=== PATIENT | female | born 1945 | race Caucasian/White ===

== ENCOUNTER 2017-10-19 01:38 | Inpatient (IN) | payer OTHER, MEDICARE ==
[~2017-10-19] VITALS: Ht 167.6 cm; Wt 129.3 kg
[~2017-10-19 01:38] MED LIST: ASPIRIN EC81 M1 PO; ATORVASTATIN CA80 M1 PO; CLONAZEPAM0.5 M2 PO; DULOXETINE HCL30 MG PO; FLUTICASONE PRO16 GM NASB; GABAPENTIN300 M2 PO; HUMALOG100 UNIT/2 SC; LANTUS100 UNIT/1 SC; LEVOTHYROXINE200 MC1 PO; LEVOTHYROXINE25 MCG PO; LIDOCAINE1 EACH TOP; LISINOPRIL10 M1 PO; LORATADINE10 M1 PO; METOPROLOL TAR100 M1 PO; MIRALAX17 G1 PO; OXYCODONE-ACET1 EAC1 PO; PRADAXA150 M2 PO; RANITIDINE HCL150 MG PO; SENNA8.6 M3 PO
--- NOTE | 2017-10-19 01:54 | ED GENERAL ADULT ---
History of Present Illness General Chief Complaint: Altered Mental Status Stated Complaint: BIBA FOR EVAL AMS Source: old records, EMS, W10 Exam Limitations: clinical condition Vital Signs & Intake/Output Vital Signs & Intake/Output Vital Signs Date Time Temp Pulse Resp B/P B/P Pulse O2 O2 Flow FiO2 Mean Ox Delivery Rate 10/19 0225 130 96 10/19 0145 97.9 100 16 114/59 97 Nasal 2.0L Cannula Allergies Coded Allergies: Iodine and Iodide Containing Produc (UNKNOWN 10/13/17) cephalexin (From KEFLEX) (UNKNOWN 10/13/17) ciprofloxacin (From CIPRO) (UNKNOWN 10/13/17) clindamycin (UNKNOWN 10/13/17) diphenhydramine (From BENADRYL) (UNKNOWN 10/13/17) lorazepam (From ATIVAN) (UNKNOWN 10/13/17) minocycline (From MINOCIN) (UNKNOWN 10/13/17) monosodium glutamate (UNKNOWN 10/13/17) morphine (UNKOWN 10/13/17) nitrofurantoin (From MACROBID) (UNKNOWN 10/13/17) nitroglycerin (UNKNOWN 10/13/17) prochlorperazine (From COMPAZINE) (UNKNOWN 10/13/17) sulfamethoxazole (From BACTRIM) (UNKNOWN 10/13/17) trimethoprim (From BACTRIM) (UNKNOWN 10/13/17) vancomycin (UNKNOWN 10/13/17) Reconcile Medications Aspirin (Ecotrin*) 81 MG TABLET.DR 1 TAB PO DAILY HEART HEALTH (Reported) Atorvastatin Calcium 80 MG TABLET 1 TAB PO DAILY CHOLESTEROL (Reported) Clonazepam 0.5 MG TABLET 1 TAB PO BIDP PRN ANXIETY (Reported) Dabigatran Etexilate Mesylat (Pradaxa) 150 MG CAPSULE 1 CAP PO BID BLOOD THINNER (Reported) Duloxetine HCl 30 MG CAPSULE.DR 1 CAP PO DAILY UNKNOWN (Reported) Fluticasone Propionate 50 MCG/ACTUATION SPRAY.SUSP 1 SPRAY NASB DAILY ALLERGIES (Reported) Gabapentin 300 MG CAPSULE 1 CAP PO BID UNKNOWN (Reported) Insulin Lispro (Humalog) 100 UNIT/ML VIAL 14 UNITS SC TIDAC DIABETES ( Reported) Insulin-Lantus (Lantus) 100 UNIT/ML VIAL 40 UNITS SC BID DIABETES (Reported) Levothyroxine Sodium 25 MCG TABLET 1 TAB PO DAILY AC THYROID (Reported) Levothyroxine Sodium 200 MCG TABLET 1 TAB PO DAILY AC THYROID (Reported) Lidocaine 5 % ADH..PATCH 1 PAT TOP DAILY PAIN (Reported) Lisinopril 10 MG TABLET 1 TAB PO DAILY HEART (Reported) Loratadine 10 MG TABLET 1 TAB PO DAILY ALLERGIES (Reported) Metoprolol Tartrate 100 MG TABLET 1 TAB PO BID HEART (Reported) Oxycodone HCl/Acetaminophen (Oxycodone-Acetaminophen 10-325) 10 MG-325 MG TABLET 1 TAB PO Q8P PRN PAIN (Reported) Polyethylene Glycol 3350 (Miralax) 17 GRAM POWD.PACK 1 PAC PO DAILY CONSTIPATION (Reported) dissolve in water Ranitidine (Ranitidine HCl) 150 MG TABLET 1 TAB PO BID GI (Reported) Sennosides (Senna) 8.6 MG TABLET 1 TAB PO 1700 CONSTIPATION (Reported) Triage Nurses Notes Reviewed? yes HPI: Patient was sent in for evaluation of altered mental status and dyspnea. Patient is from [facility] care [facility]. Around this evening patient was found altered. Patient will grunt in response to pain but that is the only response. Upon EMS arrival patient was found to be wearing a nonrebreather at 2 L/m. The oxygen was increased. Patient was seen in the emergency department a few days ago for suicidal ideations after 30 pound weight gain. Patient was subsequently discharged back to the nursing facility. Patient received 125 mg of IV Solu- Medrol as well as a DuoNeb by EMS en route to the emergency department. Past History Travel History Traveled to [place] past 21 day No Medical History Any Pertinent Medical History? see below for history Cardiovascular: AFIB, hypertension, hyperlipidemia, PVD Respiratory: COPD Gastrointestinal: GERD Musculoskeletal: chronic back pain Psychiatric: anxiety Endocrine: diabetes (type 2) Blood Disorders: NONE Cancer(s): NONE BUSINESS AGENT/Reproductive: NONE Surgical History Surgical History: non-contributory Psychosocial History Who do you live with Other (see notes) What is your primary language Arabic Tobacco Use: Cognitive Impairment Family History Hx Contributory? No Review of Systems Review of Systems Constitutional: Reports: see HPI. Physical Exam Physical Exam General Appearance: lethargic, severe distress Head: atraumatic Eyes: Bilateral: PERRL, EOMI. Ears, Nose, Throat: normal pharynx, normal ENT inspection Neck: normal inspection, supple, JVD Respiratory: decreased breath sounds, crackles, rales, respiratory distress Cardiovascular: regular rate/rhythm, normal peripheral pulses Gastrointestinal: normal bowel sounds, soft, non-tender Back: normal inspection, normal range of motion Extremities: pedal edema Neurologic/Psych: GRUNTS TO PAINFULL STIMULAE Skin: intact, normal color, warm/dry Lymphatic: no anterior cervical felecia Core Measures ACS in differential dx? Yes CVA/TIA Diagnosis: No Sepsis Present: No Sepsis Focused Exam Completed? No Progress Differential Diagnoses I considered the following diagnoses in my evaluation of the patient: [HYPOXIC RESP FAILURE, HYPERCAPNIC RESP FAILURE, PNEUMONIA, PULM EDEMA, AMI, ELECTROLYTE ABNORMALITY, UTI] Plan of Care: Orders Procedure Date/time Status LACTIC ACID 10/19 453 Active BIPAP 10/19 215 Complete ARTERIAL BLOOD GAS (GEN) 10/19 153 Complete Telemetry/Cloth Folder Machine 10/19 153 Active Straight Cath 10/19 153 Active CULTURE,URINE 10/19 153 Active BLOOD CULTURE 10/19 153 Active URINALYSIS 10/19 153 Active TROPONIN LEVEL 10/19 153 Complete LACTIC ACID 10/19 153 Complete COMPREHENSIVE METABOLIC PANEL 10/19 153 Complete CBC WITHOUT DIFFERENTIAL 10/19 153 Complete B-TYPE NATRIURETIC PEP (BNP) 10/19 153 Complete EKG 10/19 153 Active Current Medications Sig/Samantha Start time Last Medication Dose Stop Time Status Admin Furosemide 40 MG ONCE ONE 10/19 315 UNVr (Lasix) 10/19 316 Laboratory Tests 10/19/17 0230: Urine Color Pending, Urine Clarity Pending, Urine pH Pending, Ur Specific Rule Pending, Urine Protein Pending, Urine Ketones Pending, Urine Nitrite Pending, Urine Bilirubin Pending, Urine Urobilinogen Pending, Ur Leukocyte Esterase Pending, Ur Microscopic Pending, Urine Hemoglobin Pending, Urine Glucose Pending 10/19/17 0200: Anion Gap 8, Estimated GFR > 60, BUN/Creatinine Ratio 37.8 H, Glucose 127 H, Lactic Acid 1.4, Calcium 9.5, Total Bilirubin 0.4, AST 39 H, ALT 30, Alkaline Phosphatase 220 H, Gtb-[id number]-Tnyqxxxespq Pept 6450 H, Total Protein 6.4, Albumin 3.0 L, Globulin 3.4, Albumin/Globulin Ratio 0.9 L, CBC w Diff NO MAN DIFF REQ, RBC 3.96 L, MCV 87.9, MCH 28.5, RDW 15.9 H, MPV 8.1, Gran % 62.3, Lymphocytes % 21.0, Monocytes % 14.4 H, Eosinophils % 1.7, Basophils % 0.6, Absolute Granulocytes 5.7, Absolute Lymphocytes 1.9, Absolute Monocytes 1.3 H, Absolute Eosinophils 0.2, Absolute Basophils 0.1, PUBS MCHC 32.4 L 10/19/17 0150: pH 7.28 *L, pCO2 69 *H, pO2 68 L, HCO3 32 H, ABG O2 Sat (Measured) 88.0 L, Carboxyhemoglobin 2.3, O2 Concentration % 2L, O2 Delivery Method NC, Phlebotomy Draw Site RIGHT RADIAL Microbiology 10/19 300 BLOOD: Blood Culture - RECD 10/19 230 URINE ROUT: Urine Culture - RECD 10/19 153 BLOOD: Blood Culture - ORD Diagnostic Imaging: Viewed by Me: Radiology Read. Discussed w/RAD: Radiology Read. CXR Impression: PATIENT: MARCELINA VASQUEZ PRESENT AGE: 72 PATIENT ACCOUNT NO: [id number] : 45 LOCATION: [facility] ORDERING PHYSICIAN: Freddy Golden MD SERVICE DATE: 10/19/17 EXAM TYPE: RAD - XRY- PORTABLE CHEST XRAY XR PORTABLE CHEST CLINICAL INFORMATION: Fluid overload. COMPARISON: None available. TECHNIQUE: Portable frontal view of the chest was obtained. FINDINGS: Right IJ Port-A-Cath tip projects over the right atrium. Low lung volumes and nonspecific retrocardiac opacity. Markedly enlarged cardiac silhouette. Central vascular congestion without overt edema. Lungs are otherwise clear. There is no pneumothorax. No acute osseous findings IMPRESSION: - Right IJ Port-A-Cath tip projects over the right atrium. - Low lung volumes and nonspecific retrocardiac opacity. Central vascular congestion without overt edema. - Enlarged cardiac silhouette. DICTATED BY: Jose Braga MD DATE/TIME DICTATED:10/19/17301 CLAIMS ADJUSTER:DOUG DATE/TIME TRANSCRIBED:301 CONFIDENTIAL, DO NOT COPY WITHOUT APPROPRIATE AUTHORIZATION. < Electronically signed in Other Vendor System> SIGNED BY: Jose Braga MD 10/19/17307 Initial ED EKG: AFIB, nonspecific ST T wave chg Prior EKG: unchanged Rhythm Strip: atrial fibrillation Departure Departure Disposition: STILL A PATIENT Condition: Guarded Clinical Impression Primary Impression: Hypercapnic respiratory failure Secondary Impressions: Fluid overload Referrals: Unknown (PCP/Family) Departure Forms: Customer Survey General Discharge Information Admission Note Spoke With: Eloise Salomon MD Documentation of Exam: Documentation of any treatments & extenuating circumstances including Concerns Regarding Discharge (functional status, medication knowledge or non-compliance, living conditions, etc.) that warrant an admission rather than observation: [ICU ADMISSION, BIPAP, IV DIURESIS, CARDIOLOGY CONSULT, ECHO, PULM CONSULT, ] Critical Care Note Critical Care Note Critical Care Time: mins: (120 MIN)
[2017-10-19 02:15] LABS: ABSOLUTE BASOPHIL COUNT 0.1 /CUMM (0.0-0.2); ABSOLUTE EOSINOPHIL COUNT 0.2 /CUMM (0.0-0.7); ABSOLUTE GRANULOCYTE CT 5.7 /CUMM (1.4-6.5); ABSOLUTE LYMPH COUNT 1.9 /CUMM (1.2-3.4); ABSOLUTE MONOCYTE COUNT 1.3 /CUMM (0.10-0.60); BASOPHIL % 0.6 % (0.0-2.0); EOSINOPHIL % 1.7 % (0-5); GRANULOCYTE % 62.3 % (42.2-75.2); HEMATOCRIT 34.8 % (37-47); MEAN CORPUSCULAR HGB 28.5 PG (27.0-31.0); MEAN CORPUSCULAR HGB CONC 32.4 G/DL (33.0-37.0); MEAN CORPUSCULAR VOLUME 87.9 FL (81.0-99.0); MEAN PLATELET VOLUME 8.1 FL (7.4-10.4); PLATELET COUNT 294 /CUMM (130-400); RBC DISTRIBUTION WIDTH 15.9 % (11.5-14.5); RED BLOOD CELL CT 3.96 /CUMM (4.20-5.40); WHITE BLOOD CELL COUNT 9.2 /CUMM (4.8-10.8)
--- NOTE | 2017-10-19 03:08 | RADIOLOGY REPORT ---
XR PORTABLE CHEST CLINICAL INFORMATION: Fluid overload. COMPARISON: None available. TECHNIQUE: Portable frontal view of the chest was obtained. FINDINGS: Right IJ Port-A-Cath tip projects over the right atrium. Low lung volumes and nonspecific retrocardiac opacity. Markedly enlarged cardiac silhouette. Central vascular congestion without overt edema. Lungs are otherwise clear. There is no pneumothorax. No acute osseous findings IMPRESSION: - Right IJ Port-A-Cath tip projects over the right atrium. - Low lung volumes and nonspecific retrocardiac opacity. Central vascular congestion without overt edema. - Enlarged cardiac silhouette.
--- NOTE | 2017-10-19 03:26 | History & Physical ---
Kasia Contreras MD,[facility] 10/19/17 0326: General Information and HPI MD Statement: I have seen and personally examined MARCELINA VASQUEZ and documented this H&P. The patient is a 72 year old F who presented with a patient stated chief complaint of altered mental status. Source of Information: patient, old records History of Present Illness: Patient is 72-year-old female with PMH of A. fib, hypertension, hyperlipidemia, DM, PVD, COPD, chronic back pain, anxiety presented to the ED from extended care facility for evaluation of altered mental status. At the time of interview patient was confused and was not able to communicate, yet very visited after few hours there was significant improvement in her mental condition. Dickzana Amarilys was also contacted to complete history. Patient has a brother that can be contacted for medical decisions if she is not capacitated in future. Patient was [facility] from [facility] and was on 2 L oxygen supplement. For the last couple of days patient started to have increased cough and sputum, a chest x-ray was done as [facility] which was negative for pneumonia. Yesterday patient found to be unresponsive with low saturation and was sent to [place] ED. Of note the patient was admitted to emergency department a few days ago for suicidal ideation after being upset for what she noted to be 30 pounds weight gain. Patient was given IV Solu-Medrol and nebs prior to transmission. Allergies/Medications Home Med list Aspirin (Ecotrin*) 81 MG TABLET.DR 1 TAB PO DAILY HEART HEALTH (Reported) Atorvastatin Calcium 80 MG TABLET 1 TAB PO DAILY CHOLESTEROL (Reported) Clonazepam 0.5 MG TABLET 1 TAB PO BIDP PRN ANXIETY (Reported) Dabigatran Etexilate Mesylat (Pradaxa) 150 MG CAPSULE 1 CAP PO BID BLOOD THINNER (Reported) Duloxetine HCl 30 MG CAPSULE.DR 1 CAP PO DAILY UNKNOWN (Reported) Fluticasone Propionate 50 MCG/ACTUATION SPRAY.SUSP 1 SPRAY NASB DAILY ALLERGIES (Reported) Gabapentin 300 MG CAPSULE 1 CAP PO BID UNKNOWN (Reported) Hyoscyamine (Levsin) 0.125 MG TABLET 1 TAB PO Q4P PRN abdominal pain ( Reported) Insulin Lispro (Humalog) 100 UNIT/ML VIAL 14 UNITS SC TIDAC DIABETES ( Reported) Insulin-Lantus (Lantus) 100 UNIT/ML VIAL 40 UNITS SC BID DIABETES (Reported) Levothyroxine Sodium 25 MCG TABLET 1 TAB PO DAILY AC THYROID (Reported) Lidocaine 5 % ADH..PATCH 1 PAT TOP DAILY PAIN (Reported) Lisinopril 10 MG TABLET 1 TAB PO DAILY HEART (Reported) Loratadine 10 MG TABLET 1 TAB PO DAILY ALLERGIES (Reported) Metoprolol Tartrate 100 MG TABLET 1 TAB PO BID HEART (Reported) Ondansetron HCl (Zofran) 4 MG TABLET 1 TAB PO Q8 PRN nausea (Reported) Oxycodone HCl/Acetaminophen (Oxycodone-Acetaminophen 10-325) 10 MG-325 MG TABLET 1 TAB PO Q8P PRN PAIN (Reported) Oxycodone HCl/Acetaminophen (Percocet 10-325 MG Tablet) 10 MG-325 MG TABLET 1 TAB PO Q8P PRN Chronic Pain (Reported) Phenazopyridine HCl (Pyridium) 200 MG TABLET 1 TAB PO TID PRN bladder spasm ( Reported) after meals if needed Polyethylene Glycol 3350 (Miralax) 17 GRAM POWD.PACK 1 PAC PO DAILY CONSTIPATION (Reported) dissolve in water Ranitidine (Ranitidine HCl) 150 MG TABLET 1 TAB PO BID GI (Reported) Sennosides (Senna) 8.6 MG TABLET 1 TAB PO 1700 CONSTIPATION (Reported) Past History Travel History Traveled to [place] past 21 day No Medical History Cardiovascular: AFIB, hypertension, hyperlipidemia, PVD Respiratory: COPD Gastrointestinal: GERD Musculoskeletal: chronic back pain Psychiatric: anxiety Endocrine: diabetes (type 2) Blood Disorders: NONE Cancer(s): NONE AQUATIC PERFORMER/Reproductive: NONE Surgical History Surgical History: non-contributory Review of Systems Review of Systems Constitutional: Reports: see HPI. Comments Patient was confused at the time of interview and complete review of system was not possible. Exam & Diagnostic Data Last 24 Hrs of Vital Signs/I&O Vital Signs Date Time Temp Pulse Resp B/P B/P Pulse O2 O2 Flow FiO2 Mean Ox Delivery Rate 10/19 0643 106 20 107/80 98 BIPAP 35% 10/19 0551 97.6 99 20 110/71 98 BIPAP 35% 10/19 0516 97.5 120 20 110/70 98 BIPAP 35% 10/19 0515 128 98 10/19 0438 97.9 111 22 104/68 98 BIPAP 10/19 0416 98 BIPAP 10/19 0354 97.0 118 21 109/71 98 BIPAP 10/19 0225 130 96 10/19 0145 97.9 100 16 114/59 97 Nasal 2.0L Cannula Intake & Output 10/19 1600 10/19 0800 10/19 0000 Intake Total Output Total 50 Balance -50 Output, Urine 50 Physical Exam General Appearance Not oriented initially at the time of examination, Obese, on BIPAP, awake but not oriented Skin vascular congestions lesions on the bilateral LE Skin Temp/Moisture Exam: Warm/Dry Sepsis Skin Exam (color): Normal for Ethnicity HEENT Atraumatic, EOMI Cardiovascular Normal S1, Normal S2, distant sounds Lungs decreased breathign sounds, due to body habitus, on BIPAP Abdomen Soft, No Tenderness, scar of surgery in RUQ Neurological complete evluatino not possible due to patient mental condition Extremities bilateral LE skin lesion in soft splint Last 24 Hrs of Labs/Ludwig: Laboratory Tests 10/19/17 0515: pH 7.33 L, pCO2 59 H, pO2 97, HCO3 30 H, ABG O2 Sat (Measured) 95.0 L, Carboxyhemoglobin 1.4 L, O2 Concentration % .35, Respiration Rate 20, O2 Delivery Method BIPAP, Vent Mode ST, Expiratory Pressure 6, Inspiratory Pressure 14, Phlebotomy Draw Site RIGHT RADIAL 10/19/17 0505: Lactic Acid 1.1 10/19/17 0505: Anion Gap 9, Estimated GFR > 60, BUN/Creatinine Ratio 40.0 H 10/19/17 0230: Urine Opiates Screen 1284.00, Methadone Screen 116, Barbiturate Screen < 60, Ur Phencyclidine Scrn 12.80, Amphetamines Screen < 100, U Benzodiazepines Scrn < 85 , Urine Cocaine Screen < 50, Urine Cannabis Screen < 5.00, Urinalysis HEAVY H, Urine Color YEL, Urine Clarity HAZY H, Urine pH 5.5, Ur Specific [place] >= 1.030, Urine Protein 30 H, Urine Ketones TRACE H, Urine Nitrite NEG, Urine Bilirubin NEG@ICTO, Urine Urobilinogen 0.2, Ur Leukocyte Esterase NEG, Ur Microscopic SEDIMENT EXAMINED, Urine RBC 3-5, Urine WBC 3-5 H, Ur Epithelial Cells MOD H, Hyaline Casts 5-10 H, Urine Mucus FEW, Urine Hemoglobin NEG, Urine Glucose NEG 10/19/17 0200: Anion Gap 8, Estimated GFR > 60, BUN/Creatinine Ratio 37.8 H, Glucose 127 H, Lactic Acid 1.4, Calcium 9.5, Total Bilirubin 0.4, AST 39 H, ALT 30, Alkaline Phosphatase 220 H, Troponin I 0.18 *H, Cbn-Z-Mkiioquqidx Pept 6450 H, Total Protein 6.4, Albumin 3.0 L, Globulin 3.4, Albumin/Globulin Ratio 0.9 L, CBC w Diff NO MAN DIFF REQ, RBC 3.96 L, MCV 87.9, MCH 28.5, RDW 15.9 H, MPV 8.1, Gran % 62.3, Lymphocytes % 21.0, Monocytes % 14.4 H, Eosinophils % 1.7, Basophils % 0.6, Absolute Granulocytes 5.7, Absolute Lymphocytes 1.9, Absolute Monocytes 1.3 H, Absolute Eosinophils 0.2, Absolute Basophils 0.1, PUBS MCHC 32.4 L 10/19/17 0150: pH 7.28 *L, pCO2 69 *H, pO2 68 L, HCO3 32 H, ABG O2 Sat (Measured) 88.0 L, Carboxyhemoglobin 2.3, O2 Concentration % 2L, O2 Delivery Method NC, Phlebotomy Draw Site RIGHT RADIAL Microbiology 10/19 07 UPPER RESP: Surveillance Culture - RECD 10/19 0700 GI: Surveillance Culture - RECD 10/19 0432 URINE ROUT: Legionella Antigen - COLB 10/19 0432 URINE ROUT: Streptococcus pneumoniae Antigen (M - COLB 10/19 0404 URINE ROUT: Urine Culture - COLB 10/19 0300 BLOOD: Blood Culture - RECD 10/19 0255 BLOOD: Blood Culture - RECD 10/19 0230 URINE ROUT: Urine Culture - RECD Assessment/Plan Assessment: 72-year-old female with PMH of A. fib, hypertension, hyperlipidemia, DM, PVD, COPD, chronic back pain, anxiety presented to the ED from extended care facility for evaluation of altered mental status. VS: No fever, MI 100, BP 11 4/50, MI 100, RR 16 Labs at admission: Hgb 11.3, WBC 9.2, potassium 5.5, bicarbonate 35, AST 39, ALK P2 20, and TN 0.18, proBNP 6450, ABG, pH 7.28, PCO2 69, bicarbonate 32, Imagings at admission: CXR: - Right IJ Port-A-Cath tip projects over the right atrium. - Low lung volumes and nonspecific retrocardiac opacity. Central vascular congestion without overt edema. - Enlarged cardiac silhouette. Patient was admitted to ICU for management of following conditions: 1. Acute hypoxic hypercarbic respiratory failure Contributing factors are obesity hypoventilation, opiates related to respiratory failure, CHF -Admit to ICU -Continue BiPAP -ABG -TRC nebs -Cautious use of opioids 2. Elevated troponins, type II OK Most likely demand ischemia in setting of CHF and respiratory failure -Serial troponin I ECGs -Cardiology consult -Echocardiogram -Obtained records from [facility] 3. CHF Symptoms suggesting are recent weight gain of 30 pounds and cough and chest x- ray -IV Lasix -Management as noted above 4. Chronic medical conditions We will continue all home medication except lisinopril considering administration of Lasix and blood pressure -Continue home medication -Hold lisinopril DNR/DNI Heart healthy diet DVT PPx: Mechanical and heparin As Ranked By This Provider Problem List: 1. Hypercapnic respiratory failure 2. Myocardial infarction type 2 Core Measures/Misc (07/10) Acute Coronary Syndrome ACS Diagnosis: Yes Congestive Heart Failure Congestive Heart Failure Diagnosis Yes Cerebrovascular Accident CVA/TIA Diagnosis: No VTE (View Protocol) VTE Risk Factors Age>40 No Mechanical VTE Prophylaxis d/t N/A MechProphylax Ordered No VTE Pharm Prophylaxis d/t NA PharmProphylax ordered Sepsis (View protocol) Sepsis Present: No Marleni Ravi MD 10/19/17 3520: General Information and HPI Allergies/Medications Allergies: Coded Allergies: Iodine and Iodide Containing Produc (UNKNOWN 10/13/17) cephalexin (From KEFLEX) (UNKNOWN 10/13/17) ciprofloxacin (From CIPRO) (UNKNOWN 10/13/17) clindamycin (UNKNOWN 10/13/17) diphenhydramine (From BENADRYL) (UNKNOWN 10/13/17) lorazepam (From ATIVAN) (UNKNOWN 10/13/17) minocycline (From MINOCIN) (UNKNOWN 10/13/17) monosodium glutamate (UNKNOWN 10/13/17) morphine (UNKOWN 10/13/17) nitrofurantoin (From MACROBID) (UNKNOWN 10/13/17) nitroglycerin (UNKNOWN 10/13/17) prochlorperazine (From COMPAZINE) (UNKNOWN 10/13/17) sulfamethoxazole (From BACTRIM) (UNKNOWN 10/13/17) trimethoprim (From BACTRIM) (UNKNOWN 10/13/17) vancomycin (UNKNOWN 10/13/17) Uncoded Allergies: MUSHROOMS (UNKNOWN 10/19/17) LACTOSE INTOLERANT (UNKNOWN 10/19/17) Resident Review Statement Resident Statement: examined this patient, discussed with buying intern, agreed with buying intern, discussed with family, reviewed EMR data (avail) Other Findings: Patient is a 72 YO F with PMH significant for A.fib on pradaxa, HTN, HLD, PVD, GERD, IDDM Hypothyroidism, MRSA skin infection, anxiety BIBA to [place] from [facility] after developing acute dyspnea. She was discharged to [facility] on 10/10/17 from [facility] on 2L oxygen. Patient remains wheelchair bound, hoir lift. She started to expreience wet cough with congestion for the past few days, yesterday underwent a chest Xray which was negative for pneumonia. Today while they are making rounds she was found unresponsive with BS of 176 on field and sent to [place] ER. Allergic to iodine and iodinated contrast Vitals at admission Temp 97, MI 100, BP 114/59mmHg, 79 on 2L of nonrebreather mask. PE Alert and oriented after 3hrs of ABG at the time of interview. Heart: s1 & S2 heard but distant Lungs: clear on apical regions, diminshed/bearly heard at bases (no wheezing) Abdomen: soft and nontender Lower extremities: chronic skin changes present without any dependent edema evident, she is on multipodust boots. Labs white count of 9.2, H&H of 11/34, Platelet count 294, Electrolytes - chloride 95 , bicarbonate 35, BUN/Cr ration of 37 with Cr 0.9, Lactic acid 1.4, AST/ALT - 39/30, ALP 220, ProBNP 6450. ABG - pH 7.28, PaCo2 69, PaO2 68, HCo3 32. CXR - port A cath in place, low lung volumes, central vascular congestion EKG - A.Fib with HR 100, T wave inversions in I, aVL, diffuse low voltage and poor R wave progression Assessment Patient is a morbidly obese 72 YO nonsmoker diabetic female presented with acute alteration mental status due to respiratory distress. She was having cough with congestion for the past few days at [facility]. VS did show HR 100, desturating to 79 on mask. labs did show trop of 0.18, Electrolytes - chloride 95, bicarbonate 35, BUN/Cr ration of 37 with Cr 0.9, Lactic acid 1.4, AST/ALT - 39/30, ALP 220, ProBNP 6450. ABG - respiratory acidosis with carbondioxide retention. pH 7.26. EKG is consistent with A.fib HR 100. Differentials Acute hypoxic hypercarbic respiratory failure -- Obesity vs opiates --> chest wall related. Type II OK -- secondary to hypoxia and hypotension Congestive heart failure -- recent weight gain, wet cough worsening of OHS Plan Admit to critical care unit Acute hypoxic hypercarbic respiratory failure Probably secondary to obesity vs chest wall expansion problem vs opiates. * Started on BiPAP in the ER * repeat ABG did show significant improvement and transitioned to nasal cannula * Obtain records from [facility] TypeII OK Troponin 0.18 in the setting of hypoxia and hypotension. EKG did show T-wave inversions in 1 and aVL previously. Patient might have CAD in the past. * Serial EKGs and Trops * Continue aspirin, atorvastatin 80 mg, lisinopril 10 mg, metoprolol 100 mg twice a day History of A. fib on Pradaxa Continue to be determined 50 mg twice a day, metoprolol 100 mg twice a day. Insulin-dependent diabetes mellitus Accu-Cheks, continue insulin sliding scale and long-acting insulin ?? Congestive heart failure She had a proBNP of 6450 with chest x-ray features consistent with central vascular congestion. And Patient received 1 dose of IV Lasix in the ER. * Cardiology consult * Serial troponins and EKGs as this could contribute to condition and failure * Echo as per cardiology recommendations * Holding diuresis pending above Hypertension Continue lisinopril 10 mg daily Hypothyroidism Continue levothyroxine 25 g daily Depression/anxiety Continue duloxetine 30 mg daily, clonazepam 0.5 mg twice a day DVT prophylaxis On Pradaxa CODE STATUS DNR/DNI Please obtain history from the patient and she is more awake alert and able to talk. Eloise Salomon 10/19/17 0713: Attending MD Review Statement Attending Statement Attending MD Statement: examined this patient, discuss w/resident/PA/BLACKSMITH APPRENTICE, agreed w/resident/PA/BLACKSMITH APPRENTICE, reviewed EMR data (avail), reviewed images, amended to note Attending Assessment/Plan: CC: Respiratory distress, altered PMH: A. fib, hypothyroidism, DM on insulin, oxygen dependence for unclear etiology, low back pain, anxiety, HTN, HLD Patient is currently on BiPAP and difficult to get history. According to patient she was getting worsening of cough since last 3 days without any sputum production, denies any chest pain chest tightness or palpitations. According to alf, she was investigated with chest x-ray and follows found to have possible left lower lobe infiltrate but patient did not have any fever or leukocytosis of the did not treat her with antibiotics instead she was appearing congested so they gave her IV Lasix, today patient was found to be more altered and in more respiratory distress so she was sent to ER. Vitals: Afebrile, pulse in 110s, RR 22, blood pressure 114/59, saturating 96% on BiPAP On exam: Arousable, can be reoriented, cooperative, respiratory distress, neck supple, JVD difficult to assess, morbidly obese, mucosa dry , no focal neurological deficit except bilateral lower extremity appear chronically weak, no dependent edema, chronic skin changes secondary to PVD, CVS: S1-S2, irregular. RS: Difficult to ask auscultate, distant breathing sounds but markedly decreased air entry bilaterally basis. Abdomen: Soft, mild right upper quadrant tenderness, ND, bowel sounds present. Labs: CBC, BMP, LFT unremarkable except BUN 34, alkaline phosphatase 220, troponin 0.18, proBNP 6450, UA unremarkable. AB.28/69/68/32 on 2 L nasal cannula, ECG: A. fib Chest x-ray:- Right IJ Port-A-Cath tip projects over the right atrium. - Low lung volumes and nonspecific retrocardiac opacity. Central vascular congestion without overt edema. - Enlarged cardiac silhouette. Assessment and plan 72-year-old female was sent from [facility] for worsening breathing, respiratory distress and altered. In ER patient was very labored breathing, difficult to arouse, hypoxic, tachycardic, patient was started on BiPAP immediately was found to have hypercapnic respiratory failure. Patient is morbidly obese, heart sounds and breath sounds are distant, decreased air entry bilaterally, no obvious wheezing noted. She has bilateral lower extremity skin changes secondary to PAD, no ulcers, no back ulcers, no evidence of UTI. Patient was on pain medications at rehabilitation but does not have pinpoint pupils, did not receive Narcan, after a few hours on BiPAP and IV Lasix patient's mental status improved and unable to talk few stent remains to provide history. It appears that she has heart failure along with obesity hypoventilation causing hypercapnia. Currently on BiPAP, ABG improving but her troponin elevated, no acute ECG changes except A. fib. Critical care and Cardiology consult in a.m. need to up and records from outside facility as patient is a poor historian, continued medications according to [facility] list + Acute on chronic respiratory failure secondary to hypercapnia and hypoxia, probably combination of congestive heart failure along with obesity hypoventilation syndrome, EARNESTINE in setting of opiates + Elevated troponin : Probably demand secondary to heart failure rule out ACS + History of A. fib, hypothyroidism, DM on insulin, oxygen dependence for unclear etiology, low back pain, anxiety, HTN, HLD - Admit to ICU - Continue BiPAP - Repeat ABG in 4 hours from previous ABG currently on BiPAP, if acidosis improved tried to de-escalate to nasal cannula - Serial troponin and ECGs - IV Lasix was given in ER 1 dose - TRC nebs - Cardiology consult in a.m. for suspected heart failure - Critical care consult in a.m. - 2-D echocardiogram - Obtain records from [facility] and [facility] - Continue all her home medications except lisinopril, allow blood pressure to assess stabilize better after Lasix before resuming lisinopril - Careful use of opiates - Patient on Pradaxa for DVT prophylaxis - Patient has port on right side, according to her last accessed in her previous hospitalization approximately few weeks back. There is no information about patient's immediate family, health care proxy, according to charts patient is DNR. Need to confirm CODE STATUS with patient. TTS 40 min
--- NOTE | 2017-10-19 07:15 | Admission Certification ---
Admission Certification Certification Statement - As attending physician, I certify that at the time of - admission, based on clinical presentation, severity of - symptoms, need for further diagnostic testing and - therapeutic interventions, and risk of adverse outcomes - without in-hospital treatment, in my clinical assessment, - this patient requires an acute hospital stay for a minimum - of two nights or longer. I have also considered psychsocial - factors such as support system, advanced age, financial - issues, cognitive issues, and failed out-patient treatments, - past re-admission history, safety of patient, and lack of - compliance as applicable. Specific rationale supporting this admission is: Acute hypercapnic and hypoxic respiratory failure
--- NOTE | 2017-10-19 07:56 | Cons- CRCU ---
Serafin Hager 10/19/17 0755: General Information and HPI Consulting Request Requested By: Dr. Salomon History of Present Illness: Ms. Caceres is a 72 yo f with a PMH of Morbid obesity, A.fib on Pradaxa, hypertension, hyperlipidemia, IDDM, PVD, Chronic R foot ulcers, COPD on 2L home oxygen, chronic back pain, urinary incontinence, anxiety, depression, RA, history of MRSA and VRE BIBA to the ED from [facility] for hypoxia and unresponsiveness. Patient poor historian. As per records and [facility] patient was found to have low O2 sats 78-79%. She was put on a NRB mask and her O2 sat increased to 98%. She was unresponsive at the time and foaming at the mouth. As per patient she reports she was feeling sick lately. She complained of nausea, back and abdominal pain to the nursting staff at [facility]. She does not recall going to the ED. She is inactive, bedbound and uses a wheelchair for ambulation. She denies fever, chills, BAIRES, blurry vision, jerky movements, tongue bite, urinary or bowel symptoms. Patient was discharged to [facility] on 10/10/17 from [facility] and was on 2 L oxygen supplement. For the last couple of days patient started to have increased cough and sputum, a chest x-ray was done at [facility] which was negative for pneumonia. Allergies/Medications Allergies: Coded Allergies: Iodine and Iodide Containing Produc (UNKNOWN 10/13/17) cephalexin (From KEFLEX) (UNKNOWN 10/13/17) ciprofloxacin (From CIPRO) (UNKNOWN 10/13/17) clindamycin (UNKNOWN 10/13/17) diphenhydramine (From BENADRYL) (UNKNOWN 10/13/17) lorazepam (From ATIVAN) (UNKNOWN 10/13/17) minocycline (From MINOCIN) (UNKNOWN 10/13/17) monosodium glutamate (UNKNOWN 10/13/17) morphine (UNKOWN 10/13/17) nitrofurantoin (From MACROBID) (UNKNOWN 10/13/17) nitroglycerin (UNKNOWN 10/13/17) prochlorperazine (From COMPAZINE) (UNKNOWN 10/13/17) sulfamethoxazole (From BACTRIM) (UNKNOWN 10/13/17) trimethoprim (From BACTRIM) (UNKNOWN 10/13/17) vancomycin (UNKNOWN 10/13/17) Uncoded Allergies: MUSHROOMS (UNKNOWN 10/19/17) LACTOSE INTOLERANT (UNKNOWN 10/19/17) Home Med List: Aspirin (Ecotrin*) 81 MG TABLET.DR 1 TAB PO DAILY HEART HEALTH (Reported) Atorvastatin Calcium 80 MG TABLET 1 TAB PO DAILY CHOLESTEROL (Reported) Clonazepam 0.5 MG TABLET 1 TAB PO BIDP PRN ANXIETY (Reported) Dabigatran Etexilate Mesylat (Pradaxa) 150 MG CAPSULE 1 CAP PO BID BLOOD THINNER (Reported) Duloxetine HCl 30 MG CAPSULE.DR 1 CAP PO DAILY UNKNOWN (Reported) Fluticasone Propionate 50 MCG/ACTUATION SPRAY.SUSP 1 SPRAY NASB DAILY ALLERGIES (Reported) Gabapentin 300 MG CAPSULE 1 CAP PO BID UNKNOWN (Reported) Insulin Lispro (Humalog) 100 UNIT/ML VIAL 14 UNITS SC TIDAC DIABETES ( Reported) Insulin-Lantus (Lantus) 100 UNIT/ML VIAL 40 UNITS SC BID DIABETES (Reported) Levothyroxine Sodium 25 MCG TABLET 1 TAB PO DAILY AC THYROID (Reported) Lidocaine 5 % ADH..PATCH 1 PAT TOP DAILY PAIN (Reported) Lisinopril 10 MG TABLET 1 TAB PO DAILY HEART (Reported) Loratadine 10 MG TABLET 1 TAB PO DAILY ALLERGIES (Reported) Metoprolol Tartrate 100 MG TABLET 1 TAB PO BID HEART (Reported) Oxycodone HCl/Acetaminophen (Oxycodone-Acetaminophen 10-325) 10 MG-325 MG TABLET 1 TAB PO Q8P PRN PAIN (Reported) Polyethylene Glycol 3350 (Miralax) 17 GRAM POWD.PACK 1 PAC PO DAILY CONSTIPATION (Reported) dissolve in water Ranitidine (Ranitidine HCl) 150 MG TABLET 1 TAB PO BID GI (Reported) Sennosides (Senna) 8.6 MG TABLET 1 TAB PO 1700 CONSTIPATION (Reported) Current Medications: Current Medications Sig/Samantha Start time Last Medication Dose Route Stop Time Status Admin Aspirin Buffered 81 MG DAILY 10/19 1000 AC PO Atorvastatin Calcium 80 MG 1700 10/19 1700 AC PO Clonazepam 0.5 MG BID PRN 10/19 1000 AC PO 10/26 0959 Dabigatran 150 MG BID 10/19 1000 AC PO Duloxetine HCl 30 MG DAILY 10/19 1000 AC PO Enoxaparin Sodium 40 MG DAILY 10/19 1000 DC 10/19 SC 0405 Enoxaparin Sodium 0 .STK-MED ONE 10/19 0343 DC SC Famotidine 20 MG DAILY 10/19 1000 AC PO Fluticasone 1 SPRAY DAILY 10/19 1000 AC Propionate CHIDI Furosemide 0 .STK-MED ONE 10/19 0343 DC IV Furosemide 40 MG ONCE ONE 10/19 0315 DC 10/19 IV 10/19 0316 0404 Gabapentin 300 MG BID 10/19 1000 AC PO Levothyroxine Sodium 0.025 MG DAILY AC 10/19 0743 AC PO Loratadine 10 MG DAILY 10/19 1000 AC PO Oxycodone/ 0 .STK-MED ONE 10/19 0553 DC Acetaminophen PO Oxycodone/ 1 TAB ONCE ONE 10/19 0545 DC 10/19 Acetaminophen PO 10/19 0546 0614 Polyethylene Glycol 17 GM DAILY 10/19 1000 AC PO Senna/Docusate Sodium 2 TAB DAILY 10/19 1000 AC PO Review of Systems Review of Systems Constitutional: Reports: see HPI. Past History Travel History Traveled to [place] past 21 day No Medical History Cardiovascular: AFIB, hypertension, hyperlipidemia, PVD Respiratory: COPD Gastrointestinal: GERD Musculoskeletal: chronic back pain Psychiatric: anxiety Endocrine: diabetes (type 2) Blood Disorders: NONE Cancer(s): NONE TIPPLE GREASER/Reproductive: NONE Surgical History Surgical History: non-contributory Exam & Diagnostic Data Last 24 Hrs of Vital Signs/I&O Vital Signs Date Time Temp Pulse Resp B/P B/P Pulse O2 O2 Flow FiO2 Mean Ox Delivery Rate 10/19 0700 96 Nasal 2.0L Cannula 10/19 0643 106 20 107/80 98 BIPAP 35% 10/19 0551 97.6 99 20 110/71 98 BIPAP 35% 10/19 0516 97.5 120 20 110/70 98 BIPAP 35% 10/19 0515 128 98 10/19 0438 97.9 111 22 104/68 98 BIPAP 10/19 0416 98 BIPAP 10/19 0354 97.0 118 21 109/71 98 BIPAP 10/19 0225 130 96 10/19 0145 97.9 100 16 114/59 97 Nasal 2.0L Cannula Intake & Output 10/19 1600 10/19 0800 10/19 0000 Intake Total Output Total 50 Balance -50 Output, Urine 50 Patient 286 lb Weight Physical Exam General Appearance: no apparent distress, alert, awake, comfortable, obese Head: atraumatic, normal appearance Eyes: Bilateral: normal appearance, PERRL, EOMI. Ears, Nose, Throat: normal pharynx, normal ENT inspection, hearing grossly normal Neck: normal inspection, supple, full range of motion Respiratory: normal breath sounds, chest non-tender, no respiratory distress, lungs clear Cardiovascular: irregularly irregular Gastrointestinal: normal bowel sounds, soft, non-tender, no organomegaly Extremities: BLE venous boots Last 48 Hrs of Labs/Ludwig: Laboratory Tests 10/19/17 0830: Troponin I Pending 10/19/17 0515: pH 7.33 L, pCO2 59 H, pO2 97, HCO3 30 H, ABG O2 Sat (Measured) 95.0 L, Carboxyhemoglobin 1.4 L, O2 Concentration % .35, Respiration Rate 20, O2 Delivery Method BIPAP, Vent Mode ST, Expiratory Pressure 6, Inspiratory Pressure 14, Phlebotomy Draw Site RIGHT RADIAL 10/19/17 0505: Lactic Acid 1.1 10/19/17 0505: Anion Gap 9, Estimated GFR > 60, BUN/Creatinine Ratio 40.0 H 10/19/17 0230: Urine Opiates Screen 1284.00, Methadone Screen 116, Barbiturate Screen < 60, Ur Phencyclidine Scrn 12.80, Amphetamines Screen < 100, U Benzodiazepines Scrn < 85 , Urine Cocaine Screen < 50, Urine Cannabis Screen < 5.00, Urinalysis HEAVY H, Urine Color YEL, Urine Clarity HAZY H, Urine pH 5.5, Ur Specific [place] >= 1.030, Urine Protein 30 H, Urine Ketones TRACE H, Urine Nitrite NEG, Urine Bilirubin NEG@ICTO, Urine Urobilinogen 0.2, Ur Leukocyte Esterase NEG, Ur Microscopic SEDIMENT EXAMINED, Urine RBC 3-5, Urine WBC 3-5 H, Ur Epithelial Cells MOD H, Hyaline Casts 5-10 H, Urine Mucus FEW, Urine Hemoglobin NEG, Urine Glucose NEG 10/19/17 0200: Anion Gap 8, Estimated GFR > 60, BUN/Creatinine Ratio 37.8 H, Glucose 127 H, Lactic Acid 1.4, Calcium 9.5, Total Bilirubin 0.4, AST 39 H, ALT 30, Alkaline Phosphatase 220 H, Troponin I 0.18 *H, Wxv-B-Xpaerraireb Pept 6450 H, Total Protein 6.4, Albumin 3.0 L, Globulin 3.4, Albumin/Globulin Ratio 0.9 L, CBC w Diff NO MAN DIFF REQ, RBC 3.96 L, MCV 87.9, MCH 28.5, RDW 15.9 H, MPV 8.1, Gran % 62.3, Lymphocytes % 21.0, Monocytes % 14.4 H, Eosinophils % 1.7, Basophils % 0.6, Absolute Granulocytes 5.7, Absolute Lymphocytes 1.9, Absolute Monocytes 1.3 H, Absolute Eosinophils 0.2, Absolute Basophils 0.1, PUBS MCHC 32.4 L 10/19/17 0150: pH 7.28 *L, pCO2 69 *H, pO2 68 L, HCO3 32 H, ABG O2 Sat (Measured) 88.0 L, Carboxyhemoglobin 2.3, O2 Concentration % 2L, O2 Delivery Method NC, Phlebotomy Draw Site RIGHT RADIAL Assessment/Plan Impression/Plan: Ms. Caceres is a 72 yo f with a PMH of Morbid obesity, A.fib on Pradaxa, hypertension, hyperlipidemia, IDDM, PVD, Chronic R foot ulcers, COPD on 2L home oxygen, chronic back pain, urinary incontinence, anxiety, depression, RA, history of MRSA and VRE BIBA to the ED from [facility] for hypoxia and unresponsiveness. She was admitted to ICU Acute hypoxic/hypercapnic respiratory failure As per records and [facility] patient was found to have low O2 sats 78-79%. She was put on a NRB mask and her O2 sat increased to 98%. She was unresponsive at the time and foaming at the mouth. In the ED she was found to have a pH of 7.28 and CO2 of 69 and placed on BiPAP. She was thought to have new onset CHF on admission. Her ECHO is pending * TRC/nebs PRN * continue oxygen supplementation * Continue BiPAP * Serial ABG * Follow up noncontrast CT History of A.fib Records in chart. 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 Her ECHO was limited but showed preserved LV systolic function and a L pleural effusion * Cardiology recommendations appreciated * ECHO to r/o SHD and/or valvular abnormalities * Serial TROP/ECG to r/o ACS * Outpatient pharmacologic nuclear stress test * Continue Pradaxa History of HTN, COPD, chronic ulcers Her PCP-Dr. Franca Low ([place]). 09/26/17 patient received new boots for her BLE venous stasis. Prior to that she refused to take off her boots for 6 mos. * Continue home meds Diet: Diabetic Code status was confirmed with patient. She is DNR/DNI DVT pps: Pradaxa Consult Acknowledgment - Thank you for your consult request. Elver DE LEON,Abigail Ortega 10/19/17 0812: General Information and HPI Consulting Request Date of Consult: 10/19/17 Reason for Consult: Resp failure Source of Information: old records Exam Limitations: clinical condition Allergies/Medications Current Medications: Current Medications Sig/Samantha Start time Last Medication Dose Route Stop Time Status Admin Aspirin Buffered 81 MG DAILY 10/19 1000 AC PO Atorvastatin Calcium 80 MG 1700 10/19 1700 AC PO Clonazepam 0.5 MG BID PRN 10/19 1000 AC PO 10/26 0959 Dabigatran 150 MG BID 10/19 1000 AC PO Duloxetine HCl 30 MG DAILY 10/19 1000 AC PO Enoxaparin Sodium 40 MG DAILY 10/19 1000 DC 10/19 SC 0405 Enoxaparin Sodium 0 .STK-MED ONE 10/19 0343 DC SC Famotidine 20 MG DAILY 10/19 1000 AC PO Fluticasone 1 SPRAY DAILY 10/19 1000 AC Propionate CHIDI Furosemide 0 .STK-MED ONE 10/19 0343 DC IV Furosemide 40 MG ONCE ONE 10/19 0315 DC 10/19 IV 10/19 0316 0404 Gabapentin 300 MG BID 10/19 1000 AC PO Levothyroxine Sodium 0.025 MG DAILY AC 10/19 0743 AC PO Loratadine 10 MG DAILY 10/19 1000 AC PO Oxycodone/ 0 .STK-MED ONE 10/19 0553 DC Acetaminophen PO Oxycodone/ 1 TAB ONCE ONE 10/19 0545 DC 10/19 Acetaminophen PO 10/19 0546 0614 Polyethylene Glycol 17 GM DAILY 10/19 1000 AC PO Senna/Docusate Sodium 2 TAB DAILY 10/19 1000 AC PO Assessment/Plan Other Findings/Comments: I have personally seen and examined the patient, and agree with the resident's assessment and plan as detailed above. Briefly, the patient is 72-year-old female with PMH of atrial fibrillation, hypertension, hyperlipidemia, DM, PVD, COPD, chronic back pain, and anxiety. She presented to the ED from [facility] for evaluation of altered mental status. She was discharged to [facility] on 10/10/17 from [facility] and was on 2 L oxygen supplement. For the last couple of days she started to have increased cough and yellow sputum production. A chest x -ray was done which is reported in the chart as negative. Yesterday, the patient found to be unresponsive with low saturation and was sent to [place] ED. Of note, the patient was seen in the ED a recently for suicidal ideation after being upset for what she noted to be 30 pounds weight gain. The patient was evaluated, found to be in hypercarbic respiratory failure and started on BIPAP with improvement in her ABG. She has been given IV solumedrol. CXR shows LLL consolidation but the patient is being monitored off antibiotics due to no fever or leukocytosis. Troponin was positive. ABG has improved on BIPAP. We will follow culture data, consider empiric IV antibiotics, cardiology consult, obtain an ECHO, obtain outside records, avoid pain medications, check a swallowing evaluation and check a non-contrast CT of the chest. We will continue to monitor the patient closely in the [facility]. Patient was given IV Solu-Medrol and nebs prior to transmission. Consult Acknowledgment - Thank you for your consult request.
[2017-10-19 08:00] VITALS: BP 102/70
--- NOTE | 2017-10-19 12:14 | Cons- Cardiology ---
General Information and HPI Consulting Request Date of Consult: 10/19/17 Requested By: Eloise Salomon MD Reason for Consult: Atrial fibrillation; elevated troponin Source of Information: patient, old records Exam Limitations: confusion History of Present Illness: The patient is a 72-year-old female who was admitted to the ICU with mental status changes and respiratory failure. Her past medical history is remarkable for atrial fibrillation, hypertension, hyperlipidemia, diabetes, peripheral vascular disease, chronic obstructive pulmonary disease, probable sleep apnea, etc. The patient was admitted to the hospital via the emergency room from an extended care facility with altered mental status. Initially, she was very confused and unable to communicate. With improvement in her respiratory status, her mental status has improved but she remains confused (she thinks it is 2006) Patient has been a [facility] facility. She remains on oxygen supplementation. She has had increased cough and sputum over the last several days. On the day of admission, the patient was found to be unresponsive and was sent to the emergency room. Today, the patient is alert but mildly confused. She knows that she has a history of atrial fibrillation. She notes that she has always refused anticoagulation in the past. 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 She does not recall the last time she saw him. She does not noted any other prior cardiac issues. She is also unclear about any prior cardiac workup which she has had. At the moment, she notes that her respiratory status is improved but not at baseline. She denies any other cardiac symptoms. Allergies/Medications Allergies: Coded Allergies: Iodine and Iodide Containing Produc (UNKNOWN 10/13/17) cephalexin (From KEFLEX) (UNKNOWN 10/13/17) ciprofloxacin (From CIPRO) (UNKNOWN 10/13/17) clindamycin (UNKNOWN 10/13/17) diphenhydramine (From BENADRYL) (UNKNOWN 10/13/17) lorazepam (From ATIVAN) (UNKNOWN 10/13/17) minocycline (From MINOCIN) (UNKNOWN 10/13/17) monosodium glutamate (UNKNOWN 10/13/17) morphine (UNKOWN 10/13/17) nitrofurantoin (From MACROBID) (UNKNOWN 10/13/17) nitroglycerin (UNKNOWN 10/13/17) prochlorperazine (From COMPAZINE) (UNKNOWN 10/13/17) sulfamethoxazole (From BACTRIM) (UNKNOWN 10/13/17) trimethoprim (From BACTRIM) (UNKNOWN 10/13/17) vancomycin (UNKNOWN 10/13/17) Uncoded Allergies: MUSHROOMS (UNKNOWN 10/19/17) LACTOSE INTOLERANT (UNKNOWN 10/19/17) Home Med List: Aspirin (Ecotrin*) 81 MG TABLET.DR 1 TAB PO DAILY HEART HEALTH (Reported) Atorvastatin Calcium 80 MG TABLET 1 TAB PO DAILY CHOLESTEROL (Reported) Clonazepam 0.5 MG TABLET 1 TAB PO BIDP PRN ANXIETY (Reported) Dabigatran Etexilate Mesylat (Pradaxa) 150 MG CAPSULE 1 CAP PO BID BLOOD THINNER (Reported) Duloxetine HCl 30 MG CAPSULE.DR 1 CAP PO DAILY UNKNOWN (Reported) Fluticasone Propionate 50 MCG/ACTUATION SPRAY.SUSP 1 SPRAY NASB DAILY ALLERGIES (Reported) Gabapentin 300 MG CAPSULE 1 CAP PO BID UNKNOWN (Reported) Insulin Lispro (Humalog) 100 UNIT/ML VIAL 14 UNITS SC TIDAC DIABETES ( Reported) Insulin-Lantus (Lantus) 100 UNIT/ML VIAL 40 UNITS SC BID DIABETES (Reported) Levothyroxine Sodium 25 MCG TABLET 1 TAB PO DAILY AC THYROID (Reported) Lidocaine 5 % ADH..PATCH 1 PAT TOP DAILY PAIN (Reported) Lisinopril 10 MG TABLET 1 TAB PO DAILY HEART (Reported) Loratadine 10 MG TABLET 1 TAB PO DAILY ALLERGIES (Reported) Metoprolol Tartrate 100 MG TABLET 1 TAB PO BID HEART (Reported) Oxycodone HCl/Acetaminophen (Oxycodone-Acetaminophen 10-325) 10 MG-325 MG TABLET 1 TAB PO Q8P PRN PAIN (Reported) Polyethylene Glycol 3350 (Miralax) 17 GRAM POWD.PACK 1 PAC PO DAILY CONSTIPATION (Reported) dissolve in water Ranitidine (Ranitidine HCl) 150 MG TABLET 1 TAB PO BID GI (Reported) Sennosides (Senna) 8.6 MG TABLET 1 TAB PO 1700 CONSTIPATION (Reported) Current Medications: Current Medications Sig/Samantha Start time Last Medication Dose Route Stop Time Status Admin Aspirin Buffered 81 MG DAILY 10/19 1000 AC PO Atorvastatin Calcium 80 MG 1700 10/19 1700 AC PO Clonazepam 0.5 MG BID PRN 10/19 1000 AC PO 10/26 0959 Dabigatran 150 MG BID 10/19 1000 AC PO Duloxetine HCl 30 MG DAILY 10/19 1000 AC PO Enoxaparin Sodium 40 MG DAILY 10/19 1000 DC 10/19 SC 0405 Enoxaparin Sodium 0 .STK-MED ONE 10/19 0343 DC SC Famotidine 20 MG DAILY 10/19 1000 AC PO Fluticasone 1 SPRAY DAILY 10/19 1000 AC Propionate CHIDI Furosemide 0 .STK-MED ONE 10/19 0343 DC IV Furosemide 40 MG ONCE ONE 10/19 0315 DC 10/19 IV 10/19 0316 0404 Gabapentin 300 MG BID 10/19 1000 AC PO Insulin Aspart 0 TIDAC 10/19 1200 AC 10/19 SC 1151 Insulin Detemir 14 UNITS BID 10/19 1049 AC 10/19 SC 1151 Levothyroxine Sodium 0.025 MG DAILY AC 10/19 0743 AC PO Loratadine 10 MG DAILY 10/19 1000 AC PO Oxycodone/ 0 .STK-MED ONE 10/19 0553 DC Acetaminophen PO Oxycodone/ 1 TAB ONCE ONE 10/19 0545 DC 10/19 Acetaminophen PO 10/19 0546 0614 Polyethylene Glycol 17 GM DAILY 10/19 1000 AC PO Senna/Docusate Sodium 2 TAB DAILY 10/19 1000 AC PO Past History Travel History Traveled to [place] past 21 day No Medical History Cardiovascular: AFIB, hypertension, hyperlipidemia, PVD Respiratory: COPD Gastrointestinal: GERD Musculoskeletal: chronic back pain Psychiatric: anxiety Endocrine: diabetes (type 2) Blood Disorders: NONE Cancer(s): NONE 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 Acute Rehab Smoking Status: Never Smoked Exam & Diagnostic Data Vital Signs and I&O Vital Signs Date Time Temp Pulse Resp B/P B/P Pulse O2 O2 Flow FiO2 Mean Ox Delivery Rate 10/19 0800 97.5 106 18 102/70 95 Nasal 2.0L Cannula 10/19 0800 95 Nasal 2.0L Cannula 10/19 0700 96 Nasal 2.0L Cannula 10/19 0643 106 20 107/80 98 BIPAP 35% 10/19 0551 97.6 99 20 110/71 98 BIPAP 35% 10/19 0516 97.5 120 20 110/70 98 BIPAP 35% 10/19 0515 128 98 10/19 0438 97.9 111 22 104/68 98 BIPAP 10/19 0416 98 BIPAP 10/19 0354 97.0 118 21 109/71 98 BIPAP 10/19 0225 130 96 10/19 0145 97.9 100 16 114/59 97 Nasal 2.0L Cannula Intake & Output 10/19 1600 10/19 0800 10/19 0000 10/18 1600 10/18 0800 10/18 0000 Intake Total Output Total 50 Balance -50 Output, Urine 50 Patient 286 lb Weight Physical Exam: General Appearance alert confused; overweight; on supplemental oxygen. Skin lower 70 stasis changes HEENT Atraumatic, EOMI Cardiovascular Normal S1, Normal S2, distant sounds Lungs decreased breath sounds bilaterally with scattered rhonchi Abdomen Soft, No Tenderness, scar of surgery in RUQ Neurological grossly nonfocal Extremities bilateral LE skin lesion in soft splint Labs/Ludwig Results: Laboratory Tests 10/19 10/19 10/19 10/19 0940 0830 0515 0505 Blood Gas pH (7.35 - 7.45 PH) 7.40 7.33 L pCO2 (35 - 45 TORR) 51 H 59 H pO2 (80 - 100 TORR) 88 97 HCO3 (21 - 28 MEQ/L) 31 H 30 H ABG O2 Sat (Measured) (>96.0 %) 97.0 95.0 L P-50 (Temp Corrected) N Carboxyhemoglobin (1.5 - 5.0 %) 2.1 1.4 L O2 Concentration % 1L .35 Temperature (97.0 - 100.0 FARH) 97.5 Respiration Rate (BPM) 20 O2 Delivery Method N/C BIPAP Vent Mode ST Expiratory Pressure (CM H2O P) 6 Inspiratory Pressure (CM H2O P) 14 Chemistry Lactic Acid (0.7 - 2.1 mmol/L) 1.1 Troponin I (< 0.11 ng/ml) 0.29 *H Miscellaneous Phlebotomy Draw Site RIGHT BRACHIAL RIGHT RADIAL 10/19 10/19 0505 0230 Chemistry Sodium (137 - 145 mmol/L) 137 Potassium (3.5 - 5.1 mmol/L) 5.1 Chloride (98 - 107 mmol/L) 100 Carbon Dioxide (22 - 30 mmol/L) 28 Anion Gap (5 - 16) 9 BUN (7 - 17 mg/dL) 32 H Creatinine (0.5 - 1.0 mg/dL) 0.8 Estimated GFR (>60 ml/min) > 60 BUN/Creatinine Ratio (7 - 25 %) 40.0 H Toxicology Urine Opiates Screen (>2000 NG/ML) 1284.00 Methadone Screen (>300 NG/ML) 116 Barbiturate Screen (>200 NG/ML) < 60 Ur Phencyclidine Scrn (>25 NG/ML) 12.80 Amphetamines Screen (>1000 NG/ML) < 100 U Benzodiazepines Scrn (>200 NG/ML) < 85 Urine Cocaine Screen (>300 NG/ML) < 50 Urine Cannabis Screen (>50 NG/ML) < 5.00 Urines Urinalysis HEAVY H Urine Color (YEL,AMB,STR) YEL Urine Clarity (CLEAR) HAZY H Urine pH (5.0 - 8.0) 5.5 Ur Specific [place] (1.001 - 1.035) >= 1.030 Urine Protein (NEG,<30 MG/DL) 30 H Urine Ketones (NEG) TRACE H Urine Nitrite (NEG) NEG Urine Bilirubin (NEG) NEG@ICTO Urine Urobilinogen (0.1 - 1.0 EU/dl) 0.2 Ur Leukocyte Esterase (NEG) NEG Ur Microscopic SEDIMENT EXAMINED Urine RBC (0 - 5 /HPF) 3-5 Urine WBC (0 - 2 /HPF) 3-5 H Ur Epithelial Cells (NONE,FEW) MOD H Hyaline Casts (0/LPF) 5-10 H Urine Mucus (FEW,NONE) FEW Urine Hemoglobin (NEG) NEG Urine Glucose (N MG/DL) NEG 10/19 10/19 0200 0150 Blood Gas pH (7.35 - 7.45 PH) 7.28 *L pCO2 (35 - 45 TORR) 69 *H pO2 (80 - 100 TORR) 68 L HCO3 (21 - 28 MEQ/L) 32 H ABG O2 Sat (Measured) (>96.0 %) 88.0 L Carboxyhemoglobin (1.5 - 5.0 %) 2.3 O2 Concentration % 2L O2 Delivery Method NC Chemistry Sodium (137 - 145 mmol/L) 138 Potassium (3.5 - 5.1 mmol/L) 5.5 H Chloride (98 - 107 mmol/L) 95 L Carbon Dioxide (22 - 30 mmol/L) 35 H Anion Gap (5 - 16) 8 BUN (7 - 17 mg/dL) 34 H Creatinine (0.5 - 1.0 mg/dL) 0.9 Estimated GFR (>60 ml/min) > 60 BUN/Creatinine Ratio (7 - 25 %) 37.8 H Glucose (65 - 99 mg/dL) 127 H Lactic Acid (0.7 - 2.1 mmol/L) 1.4 Calcium (8.4 - 10.2 mg/dL) 9.5 Total Bilirubin (0.2 - 1.3 mg/dL) 0.4 AST (14 - 36 U/L) 39 H ALT (9 - 52 U/L) 30 Alkaline Phosphatase (<127 U/L) 220 H Troponin I (< 0.11 ng/ml) 0.18 *H Opb-Q-Etooulkmmbp Pept (<125 pg/mL) 6450 H Total Protein (6.3 - 8.2 g/dL) 6.4 Albumin (3.5 - 5.0 g/dL) 3.0 L Globulin (1.9 - 4.2 gm/dL) 3.4 Albumin/Globulin Ratio (1.1 - 2.2 %) 0.9 L Hematology CBC w Diff NO MAN DIFF REQ WBC (4.8 - 10.8 /CUMM) 9.2 RBC (4.20 - 5.40 /CUMM) 3.96 L Hgb (12.0 - 16.0 G/DL) 11.3 L Hct (37 - 47 %) 34.8 L MCV (81.0 - 99.0 FL) 87.9 MCH (27.0 - 31.0 PG) 28.5 RDW (11.5 - 14.5 %) 15.9 H Plt Count (130 - 400 /CUMM) 294 MPV (7.4 - 10.4 FL) 8.1 Gran % (42.2 - 75.2 %) 62.3 Lymphocytes % (20.5 - 51.1 %) 21.0 Monocytes % (1.7 - 9.3 %) 14.4 H Eosinophils % (0 - 5 %) 1.7 Basophils % (0.0 - 2.0 %) 0.6 Absolute Granulocytes (1.4 - 6.5 /CUMM) 5.7 Absolute Lymphocytes (1.2 - 3.4 /CUMM) 1.9 Absolute Monocytes (0.10 - 0.60 /CUMM) 1.3 H Absolute Eosinophils (0.0 - 0.7 /CUMM) 0.2 Absolute Basophils (0.0 - 0.2 /CUMM) 0.1 PUBS MCHC (33.0 - 37.0 G/DL) 32.4 L Miscellaneous Phlebotomy Draw Site RIGHT RADIAL Diagnostic Data CXR Results IMPRESSION: - Right IJ Port-A-Cath tip projects over the right atrium. - Low lung volumes and nonspecific retrocardiac opacity. Central vascular congestion without overt edema. - Enlarged cardiac silhouette. Assessment/Plan Assessment/Plan Assessment: 1. Acute hypoxic/hypercapnic respiratory failure 2. Possible congestive heart failure 3. Atrial fibrillation with suboptimal rate control 4. Borderline hypotension 5. Elevated troponin consistent with type II GA -initial troponin 0.18. No acute ECG changes noted. Follow-up troponin 0.29. 6. Hypothyroidism 7. History of hypertension 8. History of hyperlipidemia Medications: -Continue to trend troponin until decreasing -Repeat ECG in the morning -Echocardiogram pending to assess left ventricular function and wall motion -Eventually, the patient will likely need a pharmacologic nuclear stress test -Please obtain copies of outside cardiology records of possible. -Continue metoprolol for rate control if tolerated by blood pressure. If necessary, we may need to consider another agent such as digoxin. -Continue Pradaxa for now. Consult Acknowledgment - Thank you for your consult request.
[2017-10-19 12:55] VITALS: BP 160/116
[2017-10-19 14:00] VITALS: BP 118/60
[2017-10-19] MEDS ORDERED: PYRIDIUM200 M1 PO (16:04)
[2017-10-19] MEDS ORDERED: LEVSIN0.125 M1 PO (16:05)
[2017-10-19] MEDS ORDERED: ZOFRAN4 M2 PO (16:08)
--- NOTE | 2017-10-19 17:04 | Event Note ---
Event Note Event Note: Situation: Patient was scheduled for Non contrast Chest CT Brief: Patient presented with acute hypoxic respiratory failure. Her CXR showed LLL consolidation for which she was scheduled for a CT scan for further evaluation. However, a CT was not able to be perform due to the patient's body habitus. A/R: * Will start the patient on antibiotics if the patient spikes fever or has respiratory failure.
[2017-10-19] MEDS ORDERED: PERCOCET 10-321 EACH PO (17:21)
[2017-10-19 22:23] VITALS: BP 148/70
[2017-10-20 08:33] LABS: ABSOLUTE BASOPHIL COUNT 0 /CUMM (0.0-0.2); ABSOLUTE EOSINOPHIL COUNT 0 /CUMM (0.0-0.7); ABSOLUTE MONOCYTE COUNT 1.5 /CUMM (0.10-0.60); BASOPHIL % 0 % (0.0-2.0); EOSINOPHIL % 0.1 % (0-5); HEMATOCRIT 35.8 % (37-47); MEAN CORPUSCULAR HGB 27.9 PG (27.0-31.0); MEAN CORPUSCULAR VOLUME 87.3 FL (81.0-99.0); MEAN PLATELET VOLUME 8.3 FL (7.4-10.4); PLATELET COUNT 295 /CUMM (130-400); RBC DISTRIBUTION WIDTH 15.7 % (11.5-14.5); WHITE BLOOD CELL COUNT 12.6 /CUMM (4.8-10.8)
--- NOTE | 2017-10-20 08:49 | Cons- Endocrinology ---
General Information and HPI Consulting Request Date of Consult: 10/20/17 Requested By: medical team Reason for Consult: Uncontrolled diabetes Source of Information: patient, old records Exam Limitations: poor historian History of Present Illness: This 72-year-old woman with a history of diabetes mellitus type 2 was transferred from a senior living to [facility] because of hypoxemia and change in mental status. She did receive some IV Solu-Medrol in the field. Yesterday her blood sugar was very difficult to control and her sugars became quite elevated. The patient was on Lantus 40 units twice a day when at the senior living. We are told that she often refused her insulin. She was also on some Humalog before meals 14 units before each meal. When she first came to emergency room where sugar was 306 BUN and creatinine are normal. Yesterday her sugar went up to 446 but this was after receiving Solu-Medrol in the field. Allergies/Medications Allergies: Coded Allergies: Iodine and Iodide Containing Produc (UNKNOWN 10/13/17) cephalexin (From KEFLEX) (UNKNOWN 10/13/17) ciprofloxacin (From CIPRO) (UNKNOWN 10/13/17) clindamycin (UNKNOWN 10/13/17) diphenhydramine (From BENADRYL) (UNKNOWN 10/13/17) lorazepam (From ATIVAN) (UNKNOWN 10/13/17) minocycline (From MINOCIN) (UNKNOWN 10/13/17) monosodium glutamate (UNKNOWN 10/13/17) morphine (UNKOWN 10/13/17) mushroom (UNKNOWN 10/25/17) nitrofurantoin (From MACROBID) (UNKNOWN 10/13/17) nitroglycerin (UNKNOWN 10/13/17) prochlorperazine (From COMPAZINE) (UNKNOWN 10/13/17) sulfamethoxazole (From BACTRIM) (UNKNOWN 10/13/17) trimethoprim (From BACTRIM) (UNKNOWN 10/13/17) vancomycin (UNKNOWN 10/13/17) lactose (UNKNOWN 10/21/17) Home Med List: Aspirin (Ecotrin*) 81 MG TABLET.DR 1 TAB PO DAILY HEART HEALTH (Reported) Atorvastatin Calcium 80 MG TABLET 1 TAB PO DAILY CHOLESTEROL (Reported) Clonazepam 0.5 MG TABLET 1 TAB PO BIDP PRN ANXIETY (Reported) Dabigatran Etexilate Mesylat (Pradaxa) 150 MG CAPSULE 1 CAP PO BID BLOOD THINNER (Reported) Diltiazem HCl (Cardizem) 30 MG TABLET 30 MG PO BID Heart Rate Duloxetine HCl 30 MG CAPSULE.DR 1 CAP PO DAILY depression (Reported) Fluticasone Propionate 50 MCG/ACTUATION SPRAY.SUSP 1 SPRAY NASB DAILY ALLERGIES (Reported) Gabapentin 300 MG CAPSULE 1 CAP PO BID Neuropathic pain (Reported) Hyoscyamine (Levsin) 0.125 MG TABLET 1 TAB PO Q4P PRN abdominal pain ( Reported) Insulin Lispro (Humalog) 100 UNIT/ML VIAL 14 UNITS SC TIDAC DIABETES ( Reported) Insulin-Lantus (Lantus) 100 UNIT/ML VIAL 40 UNITS SC BID DIABETES (Reported) Levothyroxine Sodium 25 MCG TABLET 1 TAB PO DAILY AC THYROID (Reported) Lidocaine 5 % ADH..PATCH 1 PAT TOP DAILY PAIN (Reported) Loratadine 10 MG TABLET 1 TAB PO DAILY ALLERGIES (Reported) Losartan Potassium 50 MG TABLET 50 MG PO DAILY high Blood pressure Metoprolol Tartrate 100 MG TABLET 1 TAB PO BID HEART (Reported) Ondansetron HCl (Zofran) 4 MG TABLET 1 TAB PO Q8 PRN nausea (Reported) Oxycodone HCl/Acetaminophen (Oxycodone-Acetaminophen 10-325) 10 MG-325 MG TABLET 1 TAB PO Q8P PRN PAIN (Reported) Phenazopyridine HCl (Pyridium) 200 MG TABLET 1 TAB PO TID PRN bladder spasm ( Reported) after meals if needed Polyethylene Glycol 3350 (Miralax) 17 GRAM POWD.PACK 1 PAC PO DAILY CONSTIPATION (Reported) dissolve in water Ranitidine (Ranitidine HCl) 150 MG TABLET 1 TAB PO BID GI (Reported) Sennosides (Senna) 8.6 MG TABLET 1 TAB PO 1700 CONSTIPATION (Reported) Review of Systems Review of Systems Constitutional: Denies: chills, fever. EENTM: Reports: blurred vision. Cardiovascular: Denies: chest pain. Respiratory: Reports: cough. Denies: short of breath. GI: Denies: nausea, vomiting. Skin: Reports: lymphangitis (lesions on feet). 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 Acute Rehab Smoking Status: Never Smoked Exam & Diagnostic Data Last 24 Hrs of Vital Signs/I&O Vital Signs Date Time Temp Pulse Resp B/P B/P Pulse O2 O2 Flow FiO2 Mean Ox Delivery Rate 10/20 0952 140 10/20 0952 130 124/76 10/20 0000 Nasal 2.0L Cannula 10/19 2223 98.6 103 18 148/70 95 Nasal 2.0L Cannula 10/19 2108 118 144/70 10/19 1721 133 134/78 10/19 1711 94 Nasal 2.0L Cannula 10/19 1405 Nasal 1.0L Cannula 10/19 1345 144 148/98 10/19 1255 98.5 117 14 160/116 98 Nasal 2.0L Cannula Intake & Output 10/20 1600 10/20 0800 10/20 0000 Intake Total 120 620 Output Total 601 600 Balance -481 20 Intake, IV 20 Intake, Oral 120 600 Number 1 Bowel Movements Output, Stool 1 Output, Urine 600 600 Vital Signs Date Time Temp Pulse Resp B/P B/P Pulse O2 O2 Flow FiO2 Mean Ox Delivery Rate 10/20 0952 140 10/20 0952 130 124/76 10/20 0000 Nasal 2.0L Cannula 10/193 98.6 103 18 148/70 95 Nasal 2.0L Cannula 10/19 2108 118 144/70 10/19 1721 133 134/78 10/19 1711 94 Nasal 2.0L Cannula 10/19 1405 Nasal 1.0L Cannula 10/19 1345 144 148/98 10/19 1255 98.5 117 14 160/116 98 Nasal 2.0L Cannula Intake & Output 10/20 1600 10/20 0800 10/20 0000 Intake Total 120 620 Output Total 601 600 Balance -481 20 Intake, IV 20 Intake, Oral 120 600 Number 1 Bowel Movements Output, Stool 1 Output, Urine 600 600 Physical Exam General Appearance: alert, awake, comfortable Head: normal appearance Neck: normal inspection Respiratory: normal breath sounds Cardiovascular: irregularly irregular Gastrointestinal: normal bowel sounds, soft Extremities: normal inspection (feet are bandaged) Labs/Ludwig Results: Laboratory Tests 10/20 10/19 10/19 0716 1400 1400 Chemistry Sodium (137 - 145 mmol/L) 135 L 134 L Potassium (3.5 - 5.1 mmol/L) 5.2 H 5.6 H Chloride (98 - 107 mmol/L) 93 L 88 L Carbon Dioxide (22 - 30 mmol/L) 32 H 34 H Anion Gap (5 - 16) 10 12 BUN (7 - 17 mg/dL) 45 H 43 H Creatinine (0.5 - 1.0 mg/dL) 0.7 1.0 Estimated GFR (>60 ml/min) > 60 55 L BUN/Creatinine Ratio (7 - 25 %) 64.3 H 43.0 H Magnesium (1.6 - 2.3 mg/dL) 1.8 Troponin I (< 0.11 ng/ml) Cancelled 0.24 *H Hematology CBC w Diff NO MAN DIFF REQ WBC (4.8 - 10.8 /CUMM) 12.6 H RBC (4.20 - 5.40 /CUMM) 4.10 L Hgb (12.0 - 16.0 G/DL) 11.4 L Hct (37 - 47 %) 35.8 L MCV (81.0 - 99.0 FL) 87.3 MCH (27.0 - 31.0 PG) 27.9 RDW (11.5 - 14.5 %) 15.7 H Plt Count (130 - 400 /CUMM) 295 MPV (7.4 - 10.4 FL) 8.3 Gran % (42.2 - 75.2 %) 80.0 H Lymphocytes % (20.5 - 51.1 %) 7.9 L Monocytes % (1.7 - 9.3 %) 12.0 H Eosinophils % (0 - 5 %) 0.1 Basophils % (0.0 - 2.0 %) 0 Absolute Granulocytes (1.4 - 6.5 /CUMM) 10.0 H Absolute Lymphocytes (1.2 - 3.4 /CUMM) 1.0 L Absolute Monocytes (0.10 - 0.60 /CUMM) 1.5 H Absolute Eosinophils (0.0 - 0.7 /CUMM) 0 Absolute Basophils (0.0 - 0.2 /CUMM) 0 PUBS MCHC (33.0 - 37.0 G/DL) 32.0 L Assessment/Plan Assessment/Plan The difficulty in controlling the patient's blood sugars yesterday was probably at least in part due to the fact that she received a high dose of Solu-Medrol in the field prior to transmission to [facility] emergency room. Her sugar should be somewhat easier to control today and that she is placed on further steroids. Suggest increase Levemir to 24 units twice a day and placed on sliding scale NovoLog before meals. Sliding scale NovoLog before meals should be 80-150 give 4 units NovoLog, 151-200 give 6 units NovoLog, 201-250 give 8 units NovoLog, 251 -300 give 10 units NovoLog, 301-350 give 12 units NovoLog, 351-400 give 14 units NovoLog. A separate bedtime sliding-scale NovoLog should be written. Sliding scale NovoLog at bedtime should be less than 250 give no insulin, 251-300 give 2 units NovoLog, 301-350 give 3 units NovoLog, 351-400 give 4 units NovoLog. Once the patient is more stable we could consider adding some oral agents to her regimen such as metformin. Consult Acknowledgment - Thank you for your consult request.
--- NOTE | 2017-10-20 09:21 | ECHOCARDIOGRAM REPORT ---
MARCELINA VASQUEZ Age: 72 : 1945 Gender: F Exam Date: 10/19/2017 11:05 Exam Location: [facility] Ht (in): 66 Wt (lb): 280 BSA: 2.50 BP: 107 / 80 Ordering Physician: Serafin Hager MD Referring Physician: Mark Hartman MD Technologist: Katie Flores [facility] Room Number: 111-01 Indications: STRUCTURAL HEART DISEASE Rhythm: Atrial fibrillation Technical Quality: Poor, Very technically difficult study FINDINGS Left Ventricle Normal size left ventricle. Normal left ventricular ejection fraction estimated at 60-65%. Left ventricular wall thickness increased. Right Ventricle Right ventricle not well visualized, grossly normal. Right Atrium Normal right atrial size. Left Atrium Left atrial dilatation. Mitral Valve Mitral valve thickened. Trace mitral regurgitation. Aortic Valve Trileaflet aortic valve. Diffuse thickening (sclerosis) of the aortic valve cusps without reduced excursion. No aortic stenosis. No aortic regurgitation. Tricuspid Valve Tricuspid valve not well visualized, grossly normal. Mild tricuspid regurgitation. Right ventricular systolic pressure estimated at 44 mmHg. Pulmonic Valve Pulmonic valve not well visualized. Pericardium No pericardial effusion. Great Vessels Aortic root and proximal ascending aorta not well visualized, grossly normal. Plaque seen in the ascending aorta. CONCLUSIONS 1. This was a technically very difficult and limited examination due to the patient's body habitus and clinical status. There were no apical images obtained. 2. Aortic sclerosis is present with no valvular stenosis or insufficiency. 3. Mitral leaflet thickening is present with moderate anular calcification and minimal mitral insufficiency with left atrial enlargement. 4. There is no obvious pericardial fluid present. 5. The left ventrricular chamber size and systolic function appear normal. Accurate wall motion assessment was not possible. 6. Mild tricuspid insufficiency is present with no significant pulmonary hypertension. 7. Mild atheromatous plaque is noted in the ascending thoracic aorta. Mark Hartman M.D. (Electronically Signed) Final Date: 20 October 2017 09:20 MEASUREMENTS (Male / Female) Normal Values 2D ECHO LV Diastolic Diameter PLAX 4.9 cm 4.2 - 5.9 / 3.9 - 5.3 cm LV Systolic Diameter PLAX 3.9 cm 2.1 - 4.0 cm LV Fractional Shortening PLAX 20.4 % 25 - 46 % LV Ejection Fraction 2D Teich 41.6 % IVS Diastolic Thickness 1.3 cm LVPW Diastolic Thickness 1.2 cm LV Relative Wall Thickness 0.5 LVOT Diameter 2.2 cm LA Systolic Diameter LX 4.2 cm 3.0 - 4.0 / 2.7 - 3.8 cm Ascending Aorta Diameter 3.3 cm DOPPLER TR Peak Velocity 289.0 cm/s TR Peak Gradient 33.4 mmHg Right Atrial Pressure 10.0 mmHg Pulmonary Artery Systolic Pressu 43.4 mmHg Right Ventricular Systolic Press 43.4 mmHg PV Peak Velocity 103.0 cm/s PV Peak Gradient 4.2 mmHg PV Mean Velocity 78.9 cm/s PV Mean Gradient 3.0 mmHg PV Velocity Time Integral 20.3 cm
--- NOTE | 2017-10-20 10:50 | PN- Housestaff ---
Selene DE LEON,[facility] 10/20/17 1050: Subjective Follow-up For: Acute hypoxic respiratory failure A.dulce Tele-Events Since Last Visit: [place] with heart rate 110-136. No overnight events. Subjective: patient was seen and examined at bedside. She is unhappy as she is repeatedly woken from sleep by doctors/nurses. She was explained the reason. She continues to complain of back pain which is chronic. Review of Systems Constitutional: Reports: no symptoms. Objective Last 24 Hrs of Vital Signs/I&O Vital Signs Date Time Temp Pulse Resp B/P B/P Pulse O2 O2 Flow FiO2 Mean Ox Delivery Rate 10/20 0952 140 10/20 0952 130 124/76 10/20 0948 94 Nasal 2.0L Cannula 10/20 0000 Nasal 2.0L Cannula 10/19 2223 98.6 103 18 148/70 95 Nasal 2.0L Cannula 10/19 2108 118 144/70 10/19 1721 133 134/78 10/19 1711 94 Nasal 2.0L Cannula 10/19 1405 Nasal 1.0L Cannula 10/19 1345 144 148/98 10/19 1255 98.5 117 14 160/116 98 Nasal 2.0L Cannula Intake & Output 10/20 1600 10/20 0800 10/20 0000 Intake Total 120 620 Output Total 601 600 Balance -481 20 Intake, IV 20 Intake, Oral 120 600 Number 1 Bowel Movements Output, Stool 1 Output, Urine 600 600 Physical Exam General Appearance: Alert, Oriented X3, Mild Distress, morbid obesity Skin: No Rashes, No Breakdown Skin Temp/Moisture Exam: Warm/Dry Sepsis Skin Exam (color): Normal for Ethnicity HEENT: Atraumatic Cardiovascular: Normal S1, Normal S2, No Murmurs Lungs: Clear to Auscultation, Normal Air Movement Abdomen: Soft, No Tenderness Neurological: Normal Speech Extremities: non pitting edema Assessment/Plan Assessment: Ms. Caceres is a 72 yo f with a PMH of Morbid obesity, A.fib on Pradaxa, hypertension, hyperlipidemia, IDDM, PVD, Chronic R foot ulcers, COPD on 2L home oxygen, chronic back pain, urinary incontinence, anxiety, depression, RA, history of MRSA and VRE BIBA to the ED from [facility] for hypoxia and unresponsiveness. Assessment and Plan: Acute hypoxic/hypercapnic Respiratory Failure: As per records and [facility], patient was found to have low O2 sats 78-79%. She was put on a NRB mask and her O2 sat increased to 98%. She was unresponsive at the time and foaming at the mouth. In the ED she was found to have a pH of 7.28 and CO2 of 69 and placed on BiPAP. * Her ABG from today 10/20 shows high CO2 and HCO3. * Patient was started on BiPAP, however, she is refusing to be on BiPAP. * Continue oxygen supplementation. She uses 2L on her baseline. * Pulm consult for further recommendations. * Her CTA shows opacity in RLL suspicious for pnemonia which could e due to aspiration. * Will start her on IV Unasyn 3g q6. She does have a white count. Type II IN: She was found to have mild elevations on troponins on admission which was likely due to Type II IN. No acute ECG changes were noted. * Echo was performed today 10/20 which showed normal left ventrricular chamber size and systolic function. Mild atheromatous plaque is noted in the ascending thoracic aorta. * CTA was performed for further assessment of the mobile mass which showed ascending thoracic aorta is normal in course and caliber without dissection. * She would require a pharmacologic nuclear stress test History of Atrial Fibrilliation: Records in chart. 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 * Continue Pradaxa and metoprolol Chronic Medical Conditions: * Continue home meds Diet: Diabetic DVT Prophylaxis: On Pradaxa Code Status: DNR/DNI Problem List: 1. Myocardial infarction type 2 Pain Ratin Pain Location: none Pain Goal: Remain pain free Pain Plan: none Tomorrow's Labs & Rationales: CBC Kadi Vargas 10/20/17 1057: Attending MD Review Statement Attending Statement Attending MD Statement: examined this patient, discuss w/resident/PA/CLERICAL ORDER FILLER, agreed w/resident/PA/CLERICAL ORDER FILLER, discussed with family, reviewed EMR data (avail), discussed with nursing, discussed with case mgmt, reviewed images, amended to note Attending Assessment/Plan: 72-year-old female admitted to the ICU with mental status changes and respiratory failure. Her past medical history is remarkable for atrial fibrillation, hypertension, hyperlipidemia, diabetes, peripheral vascular disease, chronic obstructive pulmonary disease, probable sleep apnea, etc. is transferred to telemetry for mild elevation of cardiac enzymes , acute hypercapnic respiratroy failure, NSTEMI type 2, Afib uncontrolled, morbid obesity, EARNESTINE. Patient seen/examined bedside. No new complaints, feels sleepy. easily arousable. B/l sounds decreased air entry. No chest pain, diaphoresis, palpitations. Plan is to trend cardiac enzymes, ECHO f/u, CTA chest r/o underlying PE for uncontrolled afib. c/w metoprolol and pradaxa. asa, statin. (high risk for CAD), cardiac cath as per cardiology. rate control and a/c as per cardiology. acute hypercapnic respiratroy failure improved with NIPPV. Consult pulmonary. IDDM endo consulted, follow recs, titrate insulin as needed Morbid obesity BMI 46.2 advised weight loss. Please obtain previous records. cont routine care as per nursing.. decubitus prevention. time spent> 37 min...
--- NOTE | 2017-10-20 11:53 | PN- Cardiology ---
Subjective Subjective: The patient continues to complain of shortness of breath. She has a frequent cough. No palpitations. No diaphoresis. No lightheadedness or dizziness. No syncope. Objective Vital Signs and I&Os Vital Signs Date Time Temp Pulse Resp B/P B/P Pulse O2 O2 Flow FiO2 Mean Ox Delivery Rate 10/20 0952 140 10/20 0952 130 124/76 10/20 0948 94 Nasal 2.0L Cannula 10/20 0000 Nasal 2.0L Cannula 10/19 2223 98.6 103 18 148/70 95 Nasal 2.0L Cannula 10/19 2108 118 144/70 10/19 1721 133 134/78 10/19 1711 94 Nasal 2.0L Cannula 10/19 1405 Nasal 1.0L Cannula 10/19 1345 144 148/98 10/19 1255 98.5 117 14 160/116 98 Nasal 2.0L Cannula Intake & Output 10/20 1600 10/20 0800 10/20 0000 10/19 1600 10/19 0800 10/19 0000 Intake Total 120 620 400 Output Total 601 600 650 50 Balance -481 20 -250 -50 Intake, IV 20 Intake, Oral 120 600 400 Number 1 Bowel Movements Output, Stool 1 Output, Urine 600 600 650 50 Patient 286 lb Weight Physical Exam: Gen: NAD HEENT: normal Lungs: Scattered rhonchi, normal resp. effort Heart: RRR, S1, S2, no murmurs Abdomen: Soft, nontender, no masses Extremities: No clubbing, cyanosis, or edema. Neuro: Alert and oriented x 3, cranial nerves intact Current Medications: Current Medications Sig/Samantha Start time Last Medication Dose Route Stop Time Status Admin Acetaminophen 650 MG .STK-MED ONE 10/19 1325 DC PO 10/19 1326 Acetaminophen 500 MG ONCE ONE 10/19 1315 DC 10/19 PO 10/19 1316 1327 Albuterol Sulfate 3 ML Q4P PRN 10/20 0900 AC INH Aspirin Buffered 81 MG DAILY 10/19 1000 AC PO Atorvastatin Calcium 80 MG 1700 10/19 1700 AC PO Clonazepam 0.5 MG BID PRN 10/19 1000 AC 10/20 PO 10/26 0959 0049 Dabigatran 150 MG BID 10/19 1000 AC 10/20 PO 0954 Diphenhydramine HCl 25 MG ONCE ONE 10/20 1230 AC IV 10/20 1231 Duloxetine HCl 30 MG DAILY 10/19 1000 AC 10/20 PO 0948 Famotidine 20 MG DAILY 10/19 1000 AC 10/20 PO 0948 Fluticasone 1 SPRAY DAILY 10/19 1000 AC 10/20 Propionate CHIDI 0948 Gabapentin 300 MG BID 10/19 1000 AC 10/20 PO 0948 Guaifenesin/Codeine 10 ML Q6P PRN 10/20 0630 AC 10/20 Phosphate PO 0649 Hyoscyamine 0.125 MG Q4 HRS NEEDED PRN 10/19 1615 AC PO Insulin Aspart 0 TIDAC/HS 10/20 1200 AC SC Insulin Aspart 7 UNITS ONCE ONE 10/19 1900 DC 10/19 SC 10/19 1901 1917 Insulin Aspart 0 TIDAC 10/19 1200 DC 10/20 SC 0829 Insulin Detemir 24 UNITS BID 10/20 1000 AC 10/20 SC 0953 Insulin Detemir 16 UNITS BID 10/19 2200 DC 10/20 SC 0830 Insulin Detemir 14 UNITS BID 10/19 1049 DC 10/19 SC 1151 Ipratropium [place] 2.5 ML Q4P PRN 10/20 0900 AC INH Levothyroxine Sodium 0.025 MG DAILY AC 10/19 0743 AC 10/20 PO 0534 Lidocaine 1 PAT DAILY PRN 10/19 1845 AC EXT Lisinopril 10 MG DAILY 10/20 1000 AC 10/20 PO 0952 Loratadine 10 MG DAILY 10/19 1000 AC PO Methylprednisolone 40 MG ONCE ONE 10/20 0945 DC 10/20 IV 10/20 0946 0946 Metoprolol Tartrate 100 MG BID 10/19 2200 AC 10/20 PO 0952 Metoprolol Tartrate 5 MG ONCE ONE 10/19 1715 DC 10/19 IV 10/19 1716 1721 Metoprolol Tartrate 5 MG ONCE ONE 10/19 1400 DC 10/19 IV 10/19 1401 1345 Nystatin 1 JEROME TID PRN 10/20 1130 AC TOP Ondansetron HCl 4 MG Q8P PRN 10/19 1615 AC PO Ondansetron HCl 4 MG Q6P PRN 10/19 1530 DC IV Ondansetron HCl 4 MG ONCE ONE 10/19 1515 DC 10/19 IV 10/19 1516 1531 Oxycodone/ 1 TAB Q8P PRN 10/19 1730 AC 10/20 Acetaminophen PO 0534 Phenazopyridine HCl 200 MG TID PRN 10/19 1615 AC 10/20 PO 10/21 161 0049 Polyethylene Glycol 17 GM DAILY 10/19 1000 AC 10/19 PO 1224 Senna/Docusate Sodium 2 TAB DAILY 10/19 1000 AC 10/20 PO 0947 Results Last 48 Hrs of Labs/Mics: Laboratory Tests 10/20/17 0716: Anion Gap 10, Estimated GFR > 60, BUN/Creatinine Ratio 64.3 H, Magnesium 2.1, CBC w Diff NO MAN DIFF REQ, RBC 4.10 L, MCV 87.3, MCH 27.9, RDW 15.7 H, MPV 8.3, Gran % 80.0 H, Lymphocytes % 7.9 L, Monocytes % 12.0 H, Eosinophils % 0.1, Basophils % 0, Absolute Granulocytes 10.0 H, Absolute Lymphocytes 1.0 L, Absolute Monocytes 1.5 H, Absolute Eosinophils 0, Absolute Basophils 0, PUBS MCHC 32.0 L 10/19/17 1400: Troponin I Cancelled 10/19/17 1400: Anion Gap 12, Estimated GFR 55 L, BUN/Creatinine Ratio 43.0 H, Magnesium 1.8, Troponin I 0.24 *H 10/19/17 0940: pH 7.40, pCO2 51 H, pO2 88, HCO3 31 H, ABG O2 Sat (Measured) 97.0, P-50 (Temp Corrected) N, Carboxyhemoglobin 2.1, O2 Concentration % 1L, Temperature 97.5, O2 Delivery Method N/C, Phlebotomy Draw Site RIGHT BRACHIAL 10/19/17 0830: Troponin I 0.29 *H 10/19/17 0515: pH 7.33 L, pCO2 59 H, pO2 97, HCO3 30 H, ABG O2 Sat (Measured) 95.0 L, Carboxyhemoglobin 1.4 L, O2 Concentration % .35, Respiration Rate 20, O2 Delivery Method BIPAP, Vent Mode ST, Expiratory Pressure 6, Inspiratory Pressure 14, Phlebotomy Draw Site RIGHT RADIAL 10/19/17 0505: Lactic Acid 1.1 10/19/17 0505: Anion Gap 9, Estimated GFR > 60, BUN/Creatinine Ratio 40.0 H 10/19/17 0230: Urine Opiates Screen 1284.00, Methadone Screen 116, Barbiturate Screen < 60, Ur Phencyclidine Scrn 12.80, Amphetamines Screen < 100, U Benzodiazepines Scrn < 85 , Urine Cocaine Screen < 50, Urine Cannabis Screen < 5.00, Urinalysis HEAVY H, Urine Color YEL, Urine Clarity HAZY H, Urine pH 5.5, Ur Specific [place] >= 1.030, Urine Protein 30 H, Urine Ketones TRACE H, Urine Nitrite NEG, Urine Bilirubin NEG@ICTO, Urine Urobilinogen 0.2, Ur Leukocyte Esterase NEG, Ur Microscopic SEDIMENT EXAMINED, Urine RBC 3-5, Urine WBC 3-5 H, Ur Epithelial Cells MOD H, Hyaline Casts 5-10 H, Urine Mucus FEW, Urine Hemoglobin NEG, Urine Glucose NEG 10/19/17 0200: Anion Gap 8, Estimated GFR > 60, BUN/Creatinine Ratio 37.8 H, Glucose 127 H, Hemoglobin A1c 10.5 H, Lactic Acid 1.4, Calcium 9.5, Total Bilirubin 0.4, AST 39 H, ALT 30, Alkaline Phosphatase 220 H, Troponin I 0.18 *H, Pro-B- Natriuretic Pept 6450 H, Total Protein 6.4, Albumin 3.0 L, Globulin 3.4, Albumin/Globulin Ratio 0.9 L, CBC w Diff NO MAN DIFF REQ, RBC 3.96 L, MCV 87.9 , MCH 28.5, RDW 15.9 H, MPV 8.1, Gran % 62.3, Lymphocytes % 21.0, Monocytes % 14.4 H, Eosinophils % 1.7, Basophils % 0.6, Absolute Granulocytes 5.7, Absolute Lymphocytes 1.9, Absolute Monocytes 1.3 H, Absolute Eosinophils 0.2, Absolute Basophils 0.1, PUBS MCHC 32.4 L 10/19/17 0150: pH 7.28 *L, pCO2 69 *H, pO2 68 L, HCO3 32 H, ABG O2 Sat (Measured) 88.0 L, Carboxyhemoglobin 2.3, O2 Concentration % 2L, O2 Delivery Method NC, Phlebotomy Draw Site RIGHT RADIAL Microbiology 10/19 0700 UPPER RESP: Surveillance Culture - COMP METH RESIST STAPH AUREUS Recent Imaging Studies: Echocardiogram: 1. This was a technically very difficult and limited examination due to the patient's body habitus and clinical status. There were no apical images obtained. 2. Aortic sclerosis is present with no valvular stenosis or insufficiency. 3. Mitral leaflet thickening is present with moderate anular calcification and minimal mitral insufficiency with left atrial enlargement. 4. There is no obvious pericardial fluid present. 5. The left ventrricular chamber size and systolic function appear normal. Accurate wall motion assessment was not possible. 6. Mild tricuspid insufficiency is present with no significant pulmonary hypertension. 7. Mild atheromatous plaque is noted in the ascending thoracic aorta. There is also an illdefined mobile echodensity noted in that area. Further evaluation with a GRZEGORZ or CTA of the chest is suggested to better assess this region for intimal disruption, etc. Assessment/Plan Assessment/Plan Assessment: 1. Acute hypoxic/hypercapnic respiratory failure 2. Possible congestive heart failure 3. Atrial fibrillation with suboptimal rate control 4. Borderline hypotension 5. Elevated troponin consistent with type II UT -initial troponin 0.18. No acute ECG changes noted. Follow-up troponin 0.29. 6. Mobile echodensity noted in the ascending thoracic aorta. GRZEGORZ or CTA of the chest is recommended Plan: * Treatment of respiratory failure and possible pneumonia as per pulmonary * Would consider CTA of the chest for evaluation of mobile echodensity in the ascending aorta. Alternatively, GRZEGORZ could be arranged for next week. * Continue cardiac medications. * Eventual pharmacologic nuclear stress test, likely as outpatiebnt Continue telemetry? Yes
--- NOTE | 2017-10-20 11:58 | RADIOLOGY REPORT ---
EXAMINATION: XR PORTABLE CHEST CLINICAL INFORMATION: Hypoxia. Evaluate for pneumonia. COMPARISON: 10/19/2017 TECHNIQUE: Portable frontal view of the chest was obtained. FINDINGS: Lungs are hypoexpanded. There is a linear opacity of discoid atelectasis in the left lateral base. Also, there is linear opacity of atelectasis in the retrocardiac region. No acute pulmonary consolidation or pleural effusion. Cardiomediastinal silhouette is mildly enlarged, unchanged. There is atherosclerotic calcification of the uncoiled aortic arch. There is a right chest wall medication port with central catheter terminating in the region of the right atrium. The visualized bones are intact. IMPRESSION: 1. No evidence of pneumonia. 2. Lungs are hypoinflated and there is mild atelectasis in the left base. No acute pulmonary findings compared to the prior exam.
--- NOTE | 2017-10-20 14:44 | CT SCAN REPORT ---
STUDY PERFORMED: CTA OF THE CHEST WITH AND WITHOUT CONTRAST CLINICAL INFORMATION: Aortic aneurysm of ascending aorta. Rule out aortic dissection. DESCRIPTION: Initial noncontrast CT of the chest was performed. Contrast timing was performed at the level of the distal descending thoracic aorta. Subsequently, arterial phase multidetector volumetric imaging was performed through the chest following the administration of 125 mL Optiray 350 intravenous contrast. No contrast reaction reported Sagittal and coronal reformatted images were obtained on the technologist workstation. Three-dimensional MIP reformatted imaging was performed and reviewed. Total exam dose-length product 1588 mGy-cm COMPARISON: None FINDINGS: Vascular: 1. The ascending thoracic aorta is normal in course and caliber without dissection. 2. The aortic arch is normal in course and caliber without dissection. Normal 3 vessel branching configuration. 3. The descending thoracic aorta is normal in course and caliber without dissection. Mild atherosclerotic calcifications. 4. The visualized upper abdominal aorta is normal in caliber without dissection. Nonocclusive calcification noted at the origins of the celiac axis and superior mesenteric artery. 5. No central or lobar pulmonary embolism. Nonvascular: CHEST: The central airways are patent. There is patchy opacity in the superior segment of the right lower lobe. Additional dependent atelectasis bilaterally. No pneumothorax or pleural effusion. The heart is of normal size. Coronary artery calcifications present. No pericardial effusion. There is no mediastinal, hilar or axillary lymphadenopathy. There are no chest wall masses. The visualized portion of the upper abdomen demonstrates prior cholecystectomy. OSSEOUS STRUCTURES: There is no acute or suspicious osseous abnormality. Mild degenerative changes in the spine. IMPRESSION: 1. No evidence of thoracic aortic aneurysm or dissection. 2. Patchy opacity in the superior segment of the right lower lobe could represent aspiration, atelectasis, or pneumonia.
[2017-10-20 22:34] VITALS: BP 126/70
[2017-10-21 06:04] LABS: HEMATOCRIT 36.1 % (37-47); MEAN CORPUSCULAR HGB 28.2 PG (27.0-31.0); MEAN CORPUSCULAR VOLUME 88.8 FL (81.0-99.0); RED BLOOD CELL CT 4.07 /CUMM (4.20-5.40); WHITE BLOOD CELL COUNT 12.5 /CUMM (4.8-10.8)
[2017-10-21 06:05] LABS: ABSOLUTE BASOPHIL COUNT 0.1 /CUMM (0.0-0.2); ABSOLUTE EOSINOPHIL COUNT 0 /CUMM (0.0-0.7); ABSOLUTE GRANULOCYTE CT 9.8 /CUMM (1.4-6.5); ABSOLUTE LYMPH COUNT 1.2 /CUMM (1.2-3.4); ABSOLUTE MONOCYTE COUNT 1.4 /CUMM (0.10-0.60); BASOPHIL % 0.4 % (0.0-2.0); EOSINOPHIL % 0.1 % (0-5); GRANULOCYTE % 78.1 % (42.2-75.2); MEAN CORPUSCULAR HGB CONC 31.8 G/DL (33.0-37.0); MEAN PLATELET VOLUME 8.3 FL (7.4-10.4); PLATELET COUNT 303 /CUMM (130-400); RBC DISTRIBUTION WIDTH 15.7 % (11.5-14.5)
--- NOTE | 2017-10-21 06:38 | RADIOLOGY REPORT ---
XR PORTABLE CHEST CLINICAL INFORMATION: Dyspnea and pleuritic chest pain on the left side. COMPARISON: Chest x-ray October 20, 2017. TECHNIQUE: Portable frontal view of the chest was obtained. FINDINGS: Right IJ Port-A-Cath tip again projects over the right atrium. Low lung volumes. Cardiac silhouette is enlarged and unchanged. Increasing right perihilar airspace opacity. Possible trace left pleural effusion. There is no pneumothorax. Osseous structures are stable. IMPRESSION: Increasing right perihilar airspace opacity and possible trace left pleural effusion.
--- NOTE | 2017-10-21 06:44 | Event Note ---
Event Note Event Note: Situation Nursing called at 5 AM that patient had chest pain Background PMH of Morbid obesity, A.fib on Pradaxa, hypertension, hyperlipidemia, IDDM, PVD , Chronic R foot ulcers, COPD on 2L home oxygen, chronic back pain, urinary incontinence, anxiety, depression, RA, history of MRSA and VRE BIBA to the ED from [facility] for hypoxia and unresponsiveness. Patient was initially admitted to ICU and was then transferred to tele floor for continuation of management. At 12 PM patient had some heartburning which reported to be resolved after eating. Assessment and plan Patient noted that chest pain is increasing with deep breathing and coughing. She also had sensitivity in touch of the left chest. EKG and troponins, and stat CXR were ordered. Lidoderm patch was administered. TN showed an increase in TN to 1.17. StaT asprin was administered. D Dimer and CTA of the Aorta were requested. Patient was sigend out to the morning team for follow ups.
--- NOTE | 2017-10-21 07:14 | PN- Housestaff ---
Selene DE LEON,[facility] 10/21/17 0713: Subjective Follow-up For: Acute hypoxic respiratory failure [place] Tele-Events Since Last Visit: [place] with HR 116-123. Subjective: patient was seen and examined at bedside. She still reports some chest pain with chest wall tenderness and abdominal pain. She refused her antibiotics earlier as she thought they were oral and she does not like oral ones. She was explained they were IV and that she needs to treat the underlying infection. Review of Systems Constitutional: Reports: no symptoms. Objective Last 24 Hrs of Vital Signs/I&O Vital Signs Date Time Temp Pulse Resp B/P B/P Pulse O2 O2 Flow FiO2 Mean Ox Delivery Rate 10/21 0817 136 160/80 10/21 0816 136 160/80 10/21 0725 97.1 136 20 160/80 94 Nasal 2.0L Cannula 10/204 96.9 130 20 126/70 96 Nasal 1.5L Cannula 10/202 130 136/70 10/20 1959 94 Nasal 1.5L Cannula 10/20 1600 Nasal 1.5L Cannula 10/20 1158 95 Nasal 1.5L Cannula 10/20 0952 140 10/20 0952 130 124/76 10/20 0948 94 Nasal 2.0L Cannula Intake & Output 10/21 1600 10/21 0800 10/21 0000 Intake Total 480 300 Output Total Balance 480 300 Intake, Oral 480 300 Physical Exam General Appearance: Alert, Oriented X3, Cooperative, Mild Distress, morbid obesity Skin: No Rashes, No Breakdown Skin Temp/Moisture Exam: Warm/Dry Sepsis Skin Exam (color): Normal for Ethnicity HEENT: Atraumatic Cardiovascular: Normal S1, Normal S2, No Murmurs Lungs: Clear to Auscultation, Normal Air Movement Abdomen: Soft, No Tenderness Neurological: Normal Speech Extremities: non pitting edema Assessment/Plan Assessment: Ms. Caceres is a 72 yo f with a PMH of Morbid obesity, Damian.dulce on Pradaxa, hypertension, hyperlipidemia, IDDM, PVD, Chronic R foot ulcers, COPD on 2L home oxygen, chronic back pain, urinary incontinence, anxiety, depression, RA, history of MRSA and VRE BIBA to the ED from [facility] for hypoxia and unresponsiveness. Assessment and Plan: Acute hypoxic/hypercapnic Respiratory Failure: As per records and [place], patient was found to have low O2 sats 78-79%. She was put on a NRB mask and her O2 sat increased to 98%. She was unresponsive at the time and foaming at the mouth. In the ED she was found to have a pH of 7.28 and CO2 of 69 and placed on BiPAP. * Her ABG from 10/20 shows high CO2 and HCO3. * Patient has been refusing BiPAP. She has been explained the necessity of using BiPAP should her condition deteriote. * Continue oxygen supplementation. She uses 2L on her baseline. * Pulm consult for further recommendations. * Her CTA shows opacity in RLL suspicious for pnemonia which could be due to aspiration. * Will continue her on IV Unasyn 3g q6. Her white count persists Elevated Troponins: She was found to have mild elevations on troponins on admission which was likely due to Type II SD. No acute ECG changes were noted. * Echo was performed 10/20 which showed normal left ventrricular chamber size and systolic function. Mild atheromatous plaque is noted in the ascending thoracic aorta. * CTA was performed for further assessment of the mobile mass which showed ascending thoracic aorta is normal in course and caliber without dissection. * She had another episode of chest pain last night and her troponins were found to be further elevated to 1.17. They've trended down to 0.91. * Cardiology for futher recs. * She would require a pharmacologic nuclear stress test as an outpatient. History of Atrial Fibrilliation: Records in chart. Her optical lab technician-Dr. Tito Turner ([place]). 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 * Continue Pradaxa and metoprolol Chronic Medical Conditions: * Continue home meds Diet: Diabetic DVT Prophylaxis: On Pradaxa Code Status: DNR/DNI Problem List: 1. Hypercapnic respiratory failure Pain Ratin Pain Location: none Pain Goal: Remain pain free Pain Plan: none Tomorrow's Labs & Rationales: CBC, BEP Kadi Vargas 10/21/17 1023: Attending MD Review Statement Attending Statement Attending MD Statement: examined this patient, discuss w/resident/PA/MARSHMALLOW MACHINE WORKER, agreed w/resident/PA/MARSHMALLOW MACHINE WORKER, discussed with family, reviewed EMR data (avail), discussed with nursing, discussed with case mgmt, reviewed images, amended to note Attending Assessment/Plan: 72-year-old female admitted to the ICU with mental status changes and respiratory failure. Her past medical history is remarkable for atrial fibrillation, hypertension, hyperlipidemia, diabetes, peripheral vascular disease, chronic obstructive pulmonary disease, probable sleep apnea, etc. is transferred to telemetry for mild elevation of cardiac enzymes , acute hypercapnic respiratroy failure, NSTEMI type 2, Afib uncontrolled, morbid obesity, EARNESTINE. Patient seen/examined bedside. Overnight c/o chest pain feels more like burning than tightness. She is legally nighat and limited historian. She did have elevated trop. Patient is high risk for CAD. Her HR 120-130s. BP acceptable. Plan is to trend cardiac enzymes, ECHO difficult study with preserved ejection fraction, no wall motion abnormalities, CTA chest no PE/dissection but suggetsive of aspiration pneumonia. c/w metoprolol and pradaxa. asa, statin. (high risk for CAD), cardiac cath as per cardiology. rate control and a/c as per cardiology. Acute hypercapnic respiratroy failure improved with NIPPV. Consult pulmonary. CTA with possible aspiration penumonia started on iv unasyn. IDDM endo consulted, follow recs, titrate insulin as needed Morbid obesity BMI 46.2 advised weight loss. Please obtain previous records. cont routine care as per nursing.. decubitus prevention. time spent> 37 min...
[2017-10-21 07:25] VITALS: BP 160/80
--- NOTE | 2017-10-21 08:13 | PN- Diabetes ---
Assessment/Plan Assessment: Bipin 72-year-old woman with a history of diabetes mellitus type 2 was [facility] a jail to [facility] because of hypoxemia and change in mental status. Patient has type 2 diabetes associated with morbid obesity. She states she has had multiple procedures done on her feet due to infection and ulceration. The patient was on Lantus 40 units twice a day when at the jail. We are told that she often refused her insulin. She was also on some Humalog 14 units before each meal. At the present time the patient is on 24 and it's of Levemir twice a day along with sliding scale NovoLog. Blood sugars were still somewhat high yesterday but she did have a dose of Solu-Medrol 40 mg given at 9 AM. Plan: Suggest continue the present insulin. The patient did have another doses Solu- Medrol 40 mg in the morning but I do not see one ordered for today as yet. We will need to monitor her blood sugars today before making further changes. We should check the patient's thyroid function tests including a free T4 and TSH. Patient is on a low dose of thyroid hormone. The patient complains of burning in her esophagus. She may do better on a proton pump inhibitor rather than the famotidine she is on. I am reluctant to start metformin because of her GI complaints. Subjective Subjective: Does not feel well Review of Systems Constitutional: Denies: chills, fever. Cardiovascular: Denies: chest pain. Respiratory: Reports: cough, short of breath. Gastrointestinal: Denies: abdominal pain. Objective Last 24 Hrs of Vital Signs/I&O Vital Signs Date Time Temp Pulse Resp B/P B/P Pulse O2 O2 Flow FiO2 Mean Ox Delivery Rate 10/21 0725 97.1 136 20 160/80 94 Nasal 2.0L Cannula 10/20 2234 96.9 130 20 126/70 96 Nasal 1.5L Cannula 10/20 2232 130 136/70 10/20 1959 94 Nasal 1.5L Cannula 10/20 1600 Nasal 1.5L Cannula 10/20 1158 95 Nasal 1.5L Cannula 10/20 0952 140 10/20 0952 130 124/76 10/20 0948 94 Nasal 2.0L Cannula Intake & Output 10/21 1600 10/21 0800 10/21 0000 Intake Total 480 300 Output Total Balance 480 300 Intake, Oral 480 300 Vital Signs Date Time Temp Pulse Resp B/P B/P Pulse O2 O2 Flow FiO2 Mean Ox Delivery Rate 10/21 725 97.1 136 20 160/80 94 Nasal 2.0L Cannula 10/20 2234 96.9 130 20 126/70 96 Nasal 1.5L Cannula 10/20 2232 130 136/70 10/20 1959 94 Nasal 1.5L Cannula 10/20 1600 Nasal 1.5L Cannula 10/20 1158 95 Nasal 1.5L Cannula 10/20 0952 140 10/20 0952 130 124/76 10/20 0948 94 Nasal 2.0L Cannula Intake & Output 10/21 1600 10/21 0800 10/21 0000 Intake Total 480 300 Output Total Balance 480 300 Intake, Oral 480 300 Physical Exam General Appearance: alert, awake, anxious Head: normal appearance Neck: normal inspection Respiratory: normal breath sounds Cardiovascular: regular rate/rhythm Current Medications: Current Medications Sig/Samantha Start time Last Medication Dose Route Stop Time Status Admin Acetaminophen 500 MG ONCE ONE 10/21 0745 DC PO 10/21 0746 Al Hydroxide/Mg 30 ML ONCE ONE 10/21 0030 DC 10/21 Hydroxide PO 10/21 0031 0029 Albuterol Sulfate 3 ML EVERY 4 HRS/AWAKE 10/20 1600 AC 10/20 INH 1950 Albuterol Sulfate 3 ML Q4P PRN 10/20 0900 DC 10/20 INH 1157 Ampicillin Sodium/ 1,500 MG Q6 10/20 1800 AC 10/21 Sulbactam Sodium IV 0011 Sodium Chloride 100 ML Ampicillin Sodium/ 1,500 MG Q6 10/20 1447 DC Sulbactam Sodium IV Sodium Chloride 50 ML Aspirin 325 MG ONCE ONE 10/21 0700 DC PO 10/21 0701 Aspirin Buffered 81 MG DAILY 10/19 1000 AC PO Atorvastatin Calcium 80 MG 1700 10/19 1700 AC PO Calcium Carbonate 500 MG DAILY 10/21 1000 AC PO Calcium Carbonate 500 MG ONCE ONE 10/21 0745 DC PO 10/21 0746 Clonazepam 0.5 MG BID PRN 10/19 1000 AC 10/21 PO 10/26 0959 0029 Dabigatran 150 MG BID 10/19 1000 AC 10/20 PO 2232 Diphenhydramine HCl 25 MG ONCE ONE 10/20 1230 DC IV 10/20 1231 Duloxetine HCl 30 MG DAILY 10/19 1000 AC 10/20 PO 0948 Famotidine 20 MG DAILY 10/19 1000 AC 10/20 PO 0948 Fluticasone 1 SPRAY DAILY 10/19 1000 AC 10/20 Propionate CHIDI 0948 Gabapentin 300 MG BID 10/19 1000 AC 10/20 PO 2232 Guaifenesin/Codeine 10 ML Q6P PRN 10/20 0630 AC 10/20 Phosphate PO 0649 Hyoscyamine 0.125 MG Q4 HRS NEEDED PRN 10/19 1615 AC PO Insulin Aspart 0 TIDAC/HS 10/20 1200 AC 10/20 SC 1159 Insulin Aspart 0 TIDAC 10/19 1200 DC 10/20 SC 0829 Insulin Detemir 24 UNITS BID 10/20 1000 AC 10/20 SC 2232 Insulin Detemir 16 UNITS BID 10/19 2200 DC 10/20 SC 0830 Ipratropium [place] 2.5 ML EVERY 4 HRS/AWAKE .. 10/20 1311 AC 10/20 INH 1949 Ipratropium [place] 2.5 ML Q4P PRN 10/20 0900 DC 10/20 INH 1157 Levothyroxine Sodium 0.025 MG DAILY AC 10/19 0743 AC 10/21 PO 0556 Lidocaine 1 PAT ONCE ONE 10/21 0545 DC EXT 10/21 0546 Lidocaine 1 PAT DAILY PRN 10/19 1845 AC EXT Lisinopril 10 MG DAILY 10/20 1000 AC 10/20 PO 0952 Loratadine 10 MG DAILY 10/19 1000 AC PO Methylprednisolone 40 MG ONCE ONE 10/20 0945 DC 10/20 IV 10/20 0946 0946 Metoprolol Tartrate 100 MG BID 10/19 2200 AC 10/20 PO 2232 Nystatin 1 JEROME TID PRN 10/20 1130 AC TOP Ondansetron HCl 4 MG Q8P PRN 10/19 1615 AC PO Oxycodone/ 1 TAB Q8P PRN 10/19 1730 AC 10/20 Acetaminophen PO 1548 Phenazopyridine HCl 200 MG TID PRN 10/19 1615 AC 10/20 PO 10/21 1614 0049 Polyethylene Glycol 17 GM DAILY 10/19 1000 AC 10/19 PO 1224 Senna/Docusate Sodium 2 TAB DAILY 10/19 1000 AC 10/20 PO 0947 Current Medications Sig/Samantha Start time Last Medication Dose Route Stop Time Status Admin Acetaminophen 500 MG ONCE ONE 10/21 0745 DC PO 10/21 0746 Al Hydroxide/Mg 30 ML ONCE ONE 10/21 0030 DC 10/21 Hydroxide PO 10/21 0031 0029 Albuterol Sulfate 3 ML EVERY 4 HRS/AWAKE 10/20 1600 AC 10/20 INH 1950 Albuterol Sulfate 3 ML Q4P PRN 10/20 0900 DC 10/20 INH 1157 Ampicillin Sodium/ 1,500 MG Q6 10/20 1800 AC 10/21 Sulbactam Sodium IV 0011 Sodium Chloride 100 ML Ampicillin Sodium/ 1,500 MG Q6 10/20 1447 DC Sulbactam Sodium IV Sodium Chloride 50 ML Aspirin 325 MG ONCE ONE 10/21 0700 DC PO 10/21 0701 Aspirin Buffered 81 MG DAILY 10/19 1000 AC PO Atorvastatin Calcium 80 MG 1700 10/19 1700 AC PO Calcium Carbonate 500 MG DAILY 10/21 1000 AC PO Calcium Carbonate 500 MG ONCE ONE 10/21 0745 DC PO 10/21 0746 Clonazepam 0.5 MG BID PRN 10/19 1000 AC 10/21 PO 10/26 0959 0029 Dabigatran 150 MG BID 10/19 1000 AC 10/20 PO 2232 Diphenhydramine HCl 25 MG ONCE ONE 10/20 1230 DC IV 10/20 1231 Duloxetine HCl 30 MG DAILY 10/19 1000 AC 10/20 PO 0948 Famotidine 20 MG DAILY 10/19 1000 AC 10/20 PO 0948 Fluticasone 1 SPRAY DAILY 10/19 1000 AC 10/20 Propionate CHIDI 0948 Gabapentin 300 MG BID 10/19 1000 AC 10/20 PO 2232 Guaifenesin/Codeine 10 ML Q6P PRN 10/20 0630 AC 10/20 Phosphate PO 0649 Hyoscyamine 0.125 MG Q4 HRS NEEDED PRN 10/19 1615 AC PO Insulin Aspart 0 TIDAC/HS 10/20 1200 AC 10/20 SC 1159 Insulin Aspart 0 TIDAC 10/19 1200 DC 10/20 SC 0829 Insulin Detemir 24 UNITS BID 10/20 1000 AC 10/20 SC 2232 Insulin Detemir 16 UNITS BID 10/19 2200 DC 10/20 SC 0830 Ipratropium [place] 2.5 ML EVERY 4 HRS/AWAKE .. 10/20 1311 AC 10/20 INH 1949 Ipratropium [place] 2.5 ML Q4P PRN 10/20 0900 DC 10/20 INH 1157 Levothyroxine Sodium 0.025 MG DAILY AC 10/19 0743 AC 10/21 PO 0556 Lidocaine 1 PAT ONCE ONE 10/21 0545 DC EXT 10/21 0546 Lidocaine 1 PAT DAILY PRN 10/19 1845 AC EXT Lisinopril 10 MG DAILY 10/20 1000 AC 10/20 PO 0952 Loratadine 10 MG DAILY 10/19 1000 AC PO Methylprednisolone 40 MG ONCE ONE 10/20 0945 DC 10/20 IV 10/20 0946 0946 Metoprolol Tartrate 100 MG BID 10/19 2200 AC 10/20 PO 2232 Nystatin 1 JEROME TID PRN 10/20 1130 AC TOP Ondansetron HCl 4 MG Q8P PRN 10/19 1615 AC PO Oxycodone/ 1 TAB Q8P PRN 10/19 1730 AC 10/20 Acetaminophen PO 1548 Phenazopyridine HCl 200 MG TID PRN 10/19 1615 AC 10/20 PO 10/21 1614 0049 Polyethylene Glycol 17 GM DAILY 10/19 1000 AC 10/19 PO 1224 Senna/Docusate Sodium 2 TAB DAILY 10/19 1000 AC 10/20 PO 0947 Findings Pertinent Lab/Ludwig Results: Laboratory Tests 10/21 10/21 10/21 0600 0500 0018 Chemistry Sodium (137 - 145 mmol/L) 139 Potassium (3.5 - 5.1 mmol/L) 5.0 Chloride (98 - 107 mmol/L) 92 L Carbon Dioxide (22 - 30 mmol/L) 39 H Anion Gap (5 - 16) 7 BUN (7 - 17 mg/dL) 34 H Creatinine (0.5 - 1.0 mg/dL) 0.7 Estimated GFR (>60 ml/min) > 60 BUN/Creatinine Ratio (7 - 25 %) 48.6 H Magnesium (1.6 - 2.3 mg/dL) 2.1 Troponin I (< 0.11 ng/ml) Cancelled 1.17 *H Cancelled Hematology CBC w Diff NO MAN DIFF REQ WBC (4.8 - 10.8 /CUMM) 12.5 H RBC (4.20 - 5.40 /CUMM) 4.07 L Hgb (12.0 - 16.0 G/DL) 11.5 L Hct (37 - 47 %) 36.1 L MCV (81.0 - 99.0 FL) 88.8 MCH (27.0 - 31.0 PG) 28.2 RDW (11.5 - 14.5 %) 15.7 H Plt Count (130 - 400 /CUMM) 303 MPV (7.4 - 10.4 FL) 8.3 Gran % (42.2 - 75.2 %) 78.1 H Lymphocytes % (20.5 - 51.1 %) 10.0 L Monocytes % (1.7 - 9.3 %) 11.4 H Eosinophils % (0 - 5 %) 0.1 Basophils % (0.0 - 2.0 %) 0.4 Absolute Granulocytes (1.4 - 6.5 /CUMM) 9.8 H Absolute Lymphocytes (1.2 - 3.4 /CUMM) 1.2 Absolute Monocytes (0.10 - 0.60 /CUMM) 1.4 H Absolute Eosinophils (0.0 - 0.7 /CUMM) 0 Absolute Basophils (0.0 - 0.2 /CUMM) 0.1 PUBS MCHC (33.0 - 37.0 G/DL) 31.8 L 10/20 1325 Blood Gas pH (7.35 - 7.45 PH) 7.36 pCO2 (35 - 45 TORR) 60 *H pO2 (80 - 100 TORR) 96 HCO3 (21 - 28 MEQ/L) 33 H ABG O2 Sat (Measured) (>96.0 %) 95.0 L P-50 (Temp Corrected) N Carboxyhemoglobin (1.5 - 5.0 %) 2.5 O2 Concentration % 1.5 LPM O2 Delivery Method NC Miscellaneous Phlebotomy Draw Site RIGHT BRACHIAL
--- NOTE | 2017-10-21 14:46 | PN- Cardiology ---
Subjective Subjective: The patient is complaining of pain in her left side with coughing. She did not actively complain of midsternal pain but when I asked her if she had pain in the anterior chest she replied yes. Her troponin was repeated this morning and was higher than previous at 1.17. Her EKG shows atrial fibrillation at a rate of 112 with some poor R-wave progression and nonspecific ST-T wave abnormalities, unchanged. Her CT of the chest was not helpful for evaluation of the calcification seen on echo in her aorta. Currently she remains in atrial fibrillation with a rate in the 90s to low 100s. She is on Lopressor 100 mg twice daily and Pradaxa. Objective Vital Signs and I&Os Vital Signs Date Time Temp Pulse Resp B/P B/P Pulse O2 O2 Flow FiO2 Mean Ox Delivery Rate 10/21 0907 98 Nasal 1.5L Cannula 10/21 817 136 160/80 10/21 0816 136 160/80 10/21 08 Nasal 1.5L Cannula 10/21 0725 97.1 136 20 160/80 94 Nasal 2.0L Cannula 10/20 2234 96.9 130 20 126/70 96 Nasal 1.5L Cannula 10/20 2232 130 136/70 10/20 1959 94 Nasal 1.5L Cannula 10/20 1600 Nasal 1.5L Cannula Intake & Output 10/21 1600 10/21 0800 10/21 0000 10/20 1600 10/20 0800 10/20 0000 Intake Total 480 300 450 120 620 Output Total 601 600 Balance 480 300 450 -481 20 Intake, IV 50 20 Intake, Oral 480 300 400 120 600 Number 1 1 Bowel Movements Output, Stool 1 Output, Urine 600 600 Physical Exam: This is a middle-aged morbidly obese female appearing slightly short of breath but in no acute distress HEENT exam unremarkable Chest Limited examination, no rales Heart irregular rhythm, no murmurs Extremities in boots with some edema above Current Medications: Current Medications Sig/Samantha Start time Last Medication Dose Route Stop Time Status Admin Acetaminophen 500 MG ONCE ONE 10/21 0745 DC 10/21 PO 10/21 0746 1314 Al Hydroxide/Mg 30 ML ONCE ONE 10/21 0030 DC 10/21 Hydroxide PO 10/21 0031 0029 Al Hydroxide/Mg 30 ML .STK-MED ONE 10/214 DC Hydroxide PO 10/21 0025 Albuterol Sulfate 3 ML EVERY 4 HRS/AWAKE 10/20 1600 AC 10/21 INH 1347 Ampicillin Sodium/ 1,500 MG Q6 10/20 1800 AC 10/21 Sulbactam Sodium IV 1315 Sodium Chloride 100 ML Ampicillin Sodium/ 1,500 MG Q6 10/20 1447 DC Sulbactam Sodium IV Sodium Chloride 50 ML Aspirin 325 MG ONCE ONE 10/21 0700 DC 10/21 PO 10/21 0701 0819 Aspirin Buffered 81 MG DAILY 10/19 1000 AC PO Atorvastatin Calcium 80 MG 1700 10/19 1700 AC PO Calcium Carbonate 500 MG DAILY 10/21 1000 AC PO Calcium Carbonate 500 MG ONCE ONE 10/21 0745 DC 10/21 PO 10/21 0746 0815 Clonazepam 0.5 MG BID PRN 10/19 1000 AC 10/21 PO 10/26 0959 0812 Dabigatran 150 MG BID 10/19 1000 AC 10/21 PO 0818 Duloxetine HCl 30 MG DAILY 10/19 1000 AC 10/21 PO 0816 Famotidine 20 MG DAILY 10/19 1000 DC 10/21 PO 0821 Fluticasone 1 SPRAY DAILY 10/19 1000 AC 10/21 Propionate CHIDI 0820 Gabapentin 300 MG BID 10/19 1000 AC 10/20 PO 2232 Guaifenesin/Codeine 10 ML Q6P PRN 10/20 0630 AC 10/20 Phosphate PO 0649 Hyoscyamine 0.125 MG Q4 HRS NEEDED PRN 10/19 1615 AC PO Insulin Aspart 0 TIDAC/HS 10/20 1200 AC 10/21 SC 1313 Insulin Detemir 24 UNITS BID 10/20 1000 AC 10/21 SC 0819 Ipratropium [place] 2.5 ML EVERY 4 HRS/AWAKE .. 10/20 1311 AC 10/21 INH 1348 Levothyroxine Sodium 0.025 MG DAILY AC 10/19 0743 AC 10/21 PO 0556 Lidocaine 1 PAT ONCE ONE 10/21 0545 DC 10/21 EXT 10/21 0546 1314 Lidocaine 1 PAT DAILY PRN 10/19 1845 AC EXT Lisinopril 10 MG DAILY 10/20 1000 AC 10/21 PO 0817 Loratadine 10 MG DAILY 10/19 1000 AC 10/21 PO 0812 Metoprolol Tartrate 100 MG BID 10/19 2200 AC 10/21 PO 0816 Nystatin 1 JEROME TID PRN 10/20 1130 AC TOP Omeprazole 40 MG DAILY AC 10/21 0916 AC PO Ondansetron HCl 4 MG Q8P PRN 10/19 1615 AC 10/21 PO 0835 Oxycodone/ 1 TAB Q8P PRN 10/19 1730 AC 10/21 Acetaminophen PO 0812 Phenazopyridine HCl 200 MG TID PRN 10/19 1615 AC 10/20 PO 10/21 1614 0049 Polyethylene Glycol 17 GM DAILY 10/19 1000 AC 10/21 PO 0820 Senna/Docusate Sodium 2 TAB DAILY 10/19 1000 AC 10/21 PO 0817 Results Last 48 Hrs of Labs/Mics: Laboratory Tests 10/21/17 1228: Troponin I 0.91 *H, D-Dimer High Sensitivty 205 10/21/17 0600: Troponin I Cancelled 10/21/17 0500: Anion Gap 7, Estimated GFR > 60, BUN/Creatinine Ratio 48.6 H, Magnesium 2.1, Troponin I 1.17 *H, TSH 3.520, Free T4 0.98, CBC w Diff NO MAN DIFF REQ, RBC 4.07 L, MCV 88.8, MCH 28.2, RDW 15.7 H, MPV 8.3, Gran % 78.1 H, Lymphocytes % 10.0 L, Monocytes % 11.4 H, Eosinophils % 0.1, Basophils % 0.4, Absolute Granulocytes 9.8 H, Absolute Lymphocytes 1.2, Absolute Monocytes 1.4 H, Absolute Eosinophils 0, Absolute Basophils 0.1, PUBS MCHC 31.8 L 10/21/17 0018: Troponin I Cancelled 10/20/17 1325: pH 7.36, pCO2 60 *H, pO2 96, HCO3 33 H, ABG O2 Sat (Measured) 95.0 L, P-50 ( Temp Corrected) N, Carboxyhemoglobin 2.5, O2 Concentration % 1.5 LPM, O2 Delivery Method NC, Phlebotomy Draw Site RIGHT BRACHIAL 10/20/17 0716: Anion Gap 10, Estimated GFR > 60, BUN/Creatinine Ratio 64.3 H, Magnesium 2.1, CBC w Diff NO MAN DIFF REQ, RBC 4.10 L, MCV 87.3, MCH 27.9, RDW 15.7 H, MPV 8.3, Gran % 80.0 H, Lymphocytes % 7.9 L, Monocytes % 12.0 H, Eosinophils % 0.1, Basophils % 0, Absolute Granulocytes 10.0 H, Absolute Lymphocytes 1.0 L, Absolute Monocytes 1.5 H, Absolute Eosinophils 0, Absolute Basophils 0, PUBS MCHC 32.0 L Recent Imaging Studies: PATIENT: MARCELINA VASQUEZ PRESENT AGE: 72 PATIENT ACCOUNT NO: [id number] : 45 LOCATION: [facility] ORDERING PHYSICIAN: Tanna Contreras MD SERVICE DATE: 10/21/17- EXAM TYPE: RAD - XRY-PORTABLE CHEST XRAY XR PORTABLE CHEST CLINICAL INFORMATION: Dyspnea and pleuritic chest pain on the left side. COMPARISON: Chest x-ray October 20, 2017. TECHNIQUE: Portable frontal view of the chest was obtained. FINDINGS: Right IJ Port-A-Cath tip again projects over the right atrium. Low lung volumes. Cardiac silhouette is enlarged and unchanged. Increasing right perihilar airspace opacity. Possible trace left pleural effusion. There is no pneumothorax. Osseous structures are stable. IMPRESSION: Increasing right perihilar airspace opacity and possible trace left pleural effusion. DICTATED BY: Jose Braga MD DATE/TIME DICTATED:10/21/17629 FORENSIC STRUCTURAL ENGINEER:DOUG DATE/TIME TRANSCRIBED:10/21/17629 CONFIDENTIAL, DO NOT COPY WITHOUT APPROPRIATE AUTHORIZATION. <Electronically signed in Other Vendor System> SIGNED BY: Jose Braga MD 10/21/17 0638 Assessment/Plan Assessment/Plan The patient's troponins have trended upwards. Her echo did not show any regional wall motion abnormalities. This is probably a type II [place] with demand/ supply mismatch. I recommend the same medication for now. I would continue her on the monitor and trend troponins until they decrease. It is unlikely that she will be a candidate for more aggressive cardiac evaluation due to her underlying conditions. Continue telemetry? Yes
--- NOTE | 2017-10-21 16:18 | Discharge Summary ---
Visit Information Visit Dates Admission Date: 10/19/17 Discharge Date: 10/26/2017 Hospital Course Course Attending Physician: Alicia DE LEON,Kadi Primary Care Physician: Unknown Hospital Course: Patient is a 72 YO F with PMH significant for A.fib on pradaxa, HTN, HLD, PVD, GERD, IDDM, Hypothyroidism, MRSA skin infection, anxiety [facility]A to [facility] after developing acute dyspnea. Patient was on BiPAP in ER. According to patient she was getting worsening of cough without any sputum production, denied any chest pain chest tightness or palpitations. According to [facility], she was investigated with chest x-ray and found to have possible left lower lobe infiltrate but patient did not have any fever or leukocytosis, so they did not treat her with antibiotics instead she was appearing congested so they gave her IV Lasix, she was found to be more altered and in more respiratory distress so she was sent to ER. - Vitals: Afebrile, pulse in 110s, RR 22, blood pressure 114/59, saturating 96% on BiPAP On exam: Arousable, can be reoriented, cooperative, respiratory distress, neck supple, JVD difficult to assess, morbidly obese, mucosa dry , no focal neurological deficit except bilateral lower extremity appear chronically weak, no dependent edema, chronic skin changes secondary to PVD, CVS: S1-S2, irregular. RS: Difficult to ask auscultate, distant breathing sounds but markedly decreased air entry bilaterally basis. Abdomen: Soft, mild right upper quadrant tenderness, ND, bowel sounds present. Labs: CBC, BMP, LFT unremarkable except BUN 34, alkaline phosphatase 220, troponin 0.18, proBNP 6450, UA unremarkable. AB.28/69/68/32 on 2 L nasal cannula, ECG: A. fib Chest x-ray:- Right IJ Port-A-Cath tip projects over the right atrium. - Low lung volumes and nonspecific retrocardiac opacity. Central vascular congestion without overt edema. - Enlarged cardiac silhouette. -- Assessment and plan + Acute on chronic respiratory failure secondary to hypercapnia and hypoxia, combination of congestive heart failure along with obesity hypoventilation syndrome, EARNESTINE in setting of opiates + Elevated troponin : demand secondary to heart failure/EARNESTINE. Acute hypoxic/hypercapnic Respiratory Failure: As per records and [facility], patient was found to have low O2 sats 78-79%. She was put on a NRB mask and her O2 sat increased to 98%.In the ED she was found to have a pH of 7.28 and CO2 of 69 and she was placed on BiPAP. Her mentation improved after placing on BiPAP. She was okay for 24 hours on the floor. However her mentation worsened and then repeat ABG showed hypoxia and hypercarbia requiring BiPAP. However patient kept refusing BiPAP. Acute hypoxic and hypercapnic with respiratory failure mostly from obesity hyperventilation/obstructive sleep apnea/aspiration pneumonia/opiate use. She was continued on oxygen supplementation. Pulmonary was consulted. she was given antibiotics for aspiration pneumonia. Elevated Troponins/type II CO: She was found to have mild elevations on troponins on admission which was likely due to Type II CO. No acute ECG changes were noted. Echo was performed 10/20 which showed normal left ventrricular chamber size and systolic function. Mild atheromatous plaque is noted in the ascending thoracic aorta. CTA was performed for further assessment of the mobile mass which showed ascending thoracic aorta is normal in course and caliber without dissection. She had another episode of chest pain 10/20 and her troponins were found to be further elevated to 1.17. They've trended down to 0.91. She was continued on aspirin, statin, beta henrietta, losartan as per cardiology recommendations. She may need cardiac cath as an outpatient once her respiratory status becomes stable. Aspiration pneumonia Chest CT showed Patchy opacity in the superior segment of the right lower lobe representing aspiration, atelectasis, or pneumonia. She has ongoing cough in the hospital, so she received IV Unasyn in the hospital for aspiration pneumonia. She remained afebrile with normal WBC count. she was switched to oral azithromycin for 5 days. History of Atrial Fibrilliation: Her geological aide was-Dr. Tito Turner ([place]). 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 Continued Pradaxa and metoprolol. we also added Cardizem 30 mg twice daily for better rate control as per geological aide Dr. Saavedra. Hypothyroidism continued levothyroxine Diabetes mellitus -insulin regimen as per endo Hypertension continued losartan, metoprolol. Lisinopril was changed to losartan because of cough. Hyperlipidemia continued statin. Anxiety continued clonazepam. Low back pain continued on pain regimen . GERD continued omeprazole. Neuropathy continued gabapentin. Allergies: Coded Allergies: Iodine and Iodide Containing Produc (UNKNOWN 10/13/17) cephalexin (From KEFLEX) (UNKNOWN 10/13/17) ciprofloxacin (From CIPRO) (UNKNOWN 10/13/17) clindamycin (UNKNOWN 10/13/17) diphenhydramine (From BENADRYL) (UNKNOWN 10/13/17) lorazepam (From ATIVAN) (UNKNOWN 10/13/17) minocycline (From MINOCIN) (UNKNOWN 10/13/17) monosodium glutamate (UNKNOWN 10/13/17) morphine (UNKOWN 10/13/17) mushroom (UNKNOWN 10/25/17) nitrofurantoin (From MACROBID) (UNKNOWN 10/13/17) nitroglycerin (UNKNOWN 10/13/17) prochlorperazine (From COMPAZINE) (UNKNOWN 10/13/17) sulfamethoxazole (From BACTRIM) (UNKNOWN 10/13/17) trimethoprim (From BACTRIM) (UNKNOWN 10/13/17) vancomycin (UNKNOWN 10/13/17) lactose (UNKNOWN 10/21/17) Pertinent Lab Results: echo FINDINGS Left Ventricle Normal size left ventricle. Normal left ventricular ejection fraction estimated at 60-65%. Left ventricular wall thickness increased. Right Ventricle Right ventricle not well visualized, grossly normal. Right Atrium Normal right atrial size. Left Atrium Left atrial dilatation. Mitral Valve Mitral valve thickened. Trace mitral regurgitation. Aortic Valve Trileaflet aortic valve. Diffuse thickening (sclerosis) of the aortic valve cusps without reduced excursion. No aortic stenosis. No aortic regurgitation. Tricuspid Valve Tricuspid valve not well visualized, grossly normal. Mild tricuspid regurgitation. Right ventricular systolic pressure estimated at 44 mmHg. Pulmonic Valve Pulmonic valve not well visualized. Pericardium No pericardial effusion. Great Vessels Aortic root and proximal ascending aorta not well visualized, grossly normal. Plaque seen in the ascending aorta. CONCLUSIONS 1. This was a technically very difficult and limited examination due to the patient's body habitus and clinical status. There were no apical images obtained. 2. Aortic sclerosis is present with no valvular stenosis or insufficiency. 3. Mitral leaflet thickening is present with moderate anular calcification and minimal mitral insufficiency with left atrial enlargement. 4. There is no obvious pericardial fluid present. 5. The left ventrricular chamber size and systolic function appear normal. Accurate wall motion assessment was not possible. 6. Mild tricuspid insufficiency is present with no significant pulmonary hypertension. 7. Mild atheromatous plaque is noted in the ascending thoracic aorta. There is also an illdefined mobile echodensity noted in that area. Further evaluation with a GRZEGORZ or CTA of the chest is suggested to better assess this region for intimal disruption, etc. Mark Hartman M.D. (Electronically Signed) Final Date: 20 October 2017 09:20 Amended: 20 October 2017 09:28 MEASUREMENTS (Male / Female) Normal Values 2D ECHO LV Diastolic Diameter PLAX 4.9 cm 4.2 - 5.9 / 3.9 - 5.3 cm LV Systolic Diameter PLAX 3.9 cm 2.1 - 4.0 cm LV Fractional Shortening PLAX 20.4 % 25 - 46 % LV Ejection Fraction 2D Teich 41.6 % IVS Diastolic Thickness 1.3 cm LVPW Diastolic Thickness 1.2 cm LV Relative Wall Thickness 0.5 LVOT Diameter 2.2 cm LA Systolic Diameter LX 4.2 cm 3.0 - 4.0 / 2.7 - 3.8 cm Ascending Aorta Diameter 3.3 cm DOPPLER TR Peak Velocity 289.0 cm/s TR Peak Gradient 33.4 mmHg Right Atrial Pressure 10.0 mmHg Pulmonary Artery Systolic Pressu 43.4 mmHg Right Ventricular Systolic Press 43.4 mmHg PV Peak Velocity 103.0 cm/s PV Peak Gradient 4.2 mmHg PV Mean Velocity 78.9 cm/s PV Mean Gradient 3.0 mmHg PV Velocity Time Integral 20.3 cm EXAM TYPE: CAT - CTA CHEST-AORTIC DISSECTION STUDY PERFORMED: CTA OF THE CHEST WITH AND WITHOUT CONTRAST CLINICAL INFORMATION: Aortic aneurysm of ascending aorta. Rule out aortic dissection. DESCRIPTION: Initial noncontrast CT of the chest was performed. Contrast timing was performed at the level of the distal descending thoracic aorta. Subsequently, arterial phase multidetector volumetric imaging was performed through the chest following the administration of 125 mL Optiray 350 intravenous contrast. No contrast reaction reported Sagittal and coronal reformatted images were obtained on the technologist workstation. Three-dimensional MIP reformatted imaging was performed and reviewed. Total exam dose-length product 1588 mGy-cm COMPARISON: None FINDINGS: Vascular: 1. The ascending thoracic aorta is normal in course and caliber without dissection. 2. The aortic arch is normal in course and caliber without dissection. Normal 3 vessel branching configuration. 3. The descending thoracic aorta is normal in course and caliber without dissection. Mild atherosclerotic calcifications. 4. The visualized upper abdominal aorta is normal in caliber without dissection. Nonocclusive calcification noted at the origins of the celiac axis and superior mesenteric artery. 5. No central or lobar pulmonary embolism. Nonvascular: CHEST: The central airways are patent. There is patchy opacity in the superior segment of the right lower lobe. Additional dependent atelectasis bilaterally. No pneumothorax or pleural effusion. The heart is of normal size. Coronary artery calcifications present. No pericardial effusion. There is no mediastinal, hilar or axillary lymphadenopathy. There are no chest wall masses. The visualized portion of the upper abdomen demonstrates prior cholecystectomy. OSSEOUS STRUCTURES: There is no acute or suspicious osseous abnormality. Mild degenerative changes in the spine. IMPRESSION: 1. No evidence of thoracic aortic aneurysm or dissection. 2. Patchy opacity in the superior segment of the right lower lobe could represent aspiration, atelectasis, or pneumonia. cxr FINDINGS: Right IJ Port-A-Cath tip again projects over the right atrium. Low lung volumes. Cardiac silhouette is enlarged and unchanged. Increasing right perihilar airspace opacity. Possible trace left pleural effusion. There is no pneumothorax. Osseous structures are stable. IMPRESSION: Increasing right perihilar airspace opacity and possible trace left pleural effusion. -- Disposition Summary Disposition Principal Diagnosis: Acute hypoxic and hypercarbic respiratory failure atrial fib Additional Diagnosis: Type II CO Aspiration pneumonia Discharge Disposition: SNF Discharge Instructions General Discharge Information Code Status: Do Not Resucitate/Intubat Patient's Diet: As tolerated Patient's Activity: As tolerated Follow-Up Instructions/Appts: Please follow-up with PCP in one week after discharge Please follow-up with geological aide in 1 week after discharge Please follow-up with nursing home physician in 1 week after discharge Medications at Discharge Discharge Medications: Stop taking the following medications: Lisinopril (Lisinopril) 10 MG TABLET ORAL DAILY Qty = 14 Oxycodone HCl/Acetaminophen (Percocet 10-325 MG Tablet) 10 MG-325 MG TABLET ORAL EVERY 8 HOURS NEEDED as needed for Chronic Pain Qty = 30 Continue taking these medications: Oxycodone HCl/Acetaminophen (Oxycodone-Acetaminophen 10-325) 10 MG-325 MG TABLET 1 Tablet ORAL EVERY 8 HOURS NEEDED as needed for PAIN Qty = 30 Clonazepam (Clonazepam) 0.5 MG TABLET 1 Tablet ORAL 2 x Daily as needed as needed for ANXIETY Qty = 30 Levothyroxine Sodium (Levothyroxine Sodium) 25 MCG TABLET 1 Tablet ORAL DAILY BEFORE BREAKFAST Qty = 7 Insulin-Lantus (Lantus) 100 UNIT/ML VIAL 40 Units Inject into fatty tissue TWICE DAILY Qty = 10 Insulin Lispro (Humalog) 100 UNIT/ML VIAL 14 Units Inject into fatty tissue 3 TIMES DAILY BEFORE MEALS Qty = 3 Polyethylene Glycol 3350 (Miralax) 17 GRAM POWD.PACK 1 Packet ORAL DAILY Instructions: dissolve in water Sennosides (Senna) 8.6 MG TABLET 1 Tablet ORAL 5 PM Gabapentin (Gabapentin) 300 MG CAPSULE 1 Capsule ORAL TWICE DAILY Qty = 28 Fluticasone Propionate (Fluticasone Propionate) 50 MCG/ACTUATION SPRAY.SUSP 1 [place] Both sides of nose DAILY Qty = 16 Lidocaine (Lidocaine) 5 % ADH..PATCH 1 Patch On the skin DAILY Aspirin (Ecotrin*) 81 MG TABLET.DR 1 Tablet ORAL DAILY Dabigatran Etexilate Mesylat (Pradaxa) 150 MG CAPSULE 1 Capsule ORAL TWICE DAILY Qty = 28 Duloxetine HCl (Duloxetine HCl) 30 MG CAPSULE.DR 1 Capsule ORAL DAILY Qty = 14 Loratadine (Loratadine) 10 MG TABLET 1 Tablet ORAL DAILY Metoprolol Tartrate (Metoprolol Tartrate) 100 MG TABLET 1 Tablet ORAL TWICE DAILY Qty = 28 Atorvastatin Calcium (Atorvastatin Calcium) 80 MG TABLET 1 Tablet ORAL DAILY Qty = 14 Ranitidine (Ranitidine HCl) 150 MG TABLET 1 Tablet ORAL TWICE DAILY Qty = 28 Phenazopyridine HCl (Pyridium) 200 MG TABLET 1 Tablet ORAL THREE TIMES DAILY as needed for bladder spasm Qty = 30 Instructions: after meals if needed Hyoscyamine (Levsin) 0.125 MG TABLET 1 Tablet ORAL EVERY 4 HOURS NEEDED as needed for abdominal pain Qty = 30 Ondansetron HCl (Zofran) 4 MG TABLET 1 Tablet ORAL EVERY 8 HOURS as needed for nausea Qty = 30 Start taking the following new medications: Losartan Potassium (Losartan Potassium) 50 MG TABLET 50 Milligram ORAL DAILY Qty = 30 No Refills Diltiazem HCl (Cardizem) 30 MG TABLET 30 Milligram ORAL TWICE DAILY Qty = 60 No Refills Copies To: Maranda DE LEON,Franca Guo
[2017-10-21 22:20] VITALS: BP 152/72
[2017-10-22 06:35] VITALS: BP 132/80
[2017-10-22 08:09] LABS: ABSOLUTE BASOPHIL COUNT 0 /CUMM (0.0-0.2); ABSOLUTE EOSINOPHIL COUNT 0.1 /CUMM (0.0-0.7); ABSOLUTE GRANULOCYTE CT 7.8 /CUMM (1.4-6.5); ABSOLUTE LYMPH COUNT 1.4 /CUMM (1.2-3.4); BASOPHIL % 0.4 % (0.0-2.0); EOSINOPHIL % 1.4 % (0-5); GRANULOCYTE % 75.4 % (42.2-75.2); HEMATOCRIT 35.4 % (37-47); MEAN CORPUSCULAR HGB 28.4 PG (27.0-31.0); MEAN CORPUSCULAR HGB CONC 31.9 G/DL (33.0-37.0); MEAN CORPUSCULAR VOLUME 88.9 FL (81.0-99.0); PLATELET COUNT 242 /CUMM (130-400); RBC DISTRIBUTION WIDTH 15.9 % (11.5-14.5); RED BLOOD CELL CT 3.99 /CUMM (4.20-5.40); WHITE BLOOD CELL COUNT 10.3 /CUMM (4.8-10.8)
--- NOTE | 2017-10-22 08:44 | PN- Housestaff ---
Charlie DE LEON,[facility] 10/22/17 0844: Subjective Follow-up For: Acute hypoxic respiratory failure A.fib Subjective: Patient seen and examined. Complaining of intermittent cough and pain associated with coughing. Can be contributed by [place] inhibitor Denies shortness of breath, chills fevers and urinary symptoms Review of Systems Constitutional: Reports: see HPI. Objective Last 24 Hrs of Vital Signs/I&O Vital Signs Date Time Temp Pulse Resp B/P B/P Pulse O2 O2 Flow FiO2 Mean Ox Delivery Rate 10/22 0846 97 Nasal 2.0L Cannula 10/22 0635 98.2 76 20 132/80 97 Nasal 2.0L Cannula 10/22 0000 92 Nasal 1.5L Cannula 10/21 2220 97.7 119 22 152/72 92 Nasal 1.5L Cannula 10/21 2207 93 Nasal 1.0L Cannula 10/21 2124 108 118/60 10/21 1710 96 Nasal 1.5L Cannula 10/21 1442 98.1 145 22 95 Nasal Cannula Intake & Output 10/22 1600 10/22 0800 10/22 0000 Intake Total 580 240 Output Total Balance 580 240 Intake, IV 100 Intake, Oral 480 240 Number 0 Bowel Movements Physical Exam General Appearance: Alert, Oriented X3, Cooperative Other Physical Findings: Extremities: non pitting edema Current Medications: Current Medications Sig/Samantha Start time Last Medication Dose Route Stop Time Status Admin Albuterol Sulfate 3 ML EVERY 4 HRS/AWAKE 10/20 1600 AC 10/22 INH 0843 Ampicillin Sodium/ 1,500 MG Q6 10/20 1800 AC 10/22 Sulbactam Sodium IV 1233 Sodium Chloride 100 ML Aspirin Buffered 81 MG DAILY 10/19 1000 AC PO Atorvastatin Calcium 80 MG 1700 10/19 1700 AC 10/21 PO 1808 Calcium Carbonate 500 MG DAILY 10/21 1000 AC PO Clonazepam 0.5 MG BID PRN 10/19 1000 AC 10/22 PO 10/26 0959 0824 Dabigatran 150 MG BID 10/19 1000 AC 10/22 PO 0821 Duloxetine HCl 30 MG DAILY 10/19 1000 AC 10/22 PO 0821 Fluticasone 1 SPRAY DAILY 10/19 1000 AC 10/22 Propionate CHIDI 0827 Gabapentin 300 MG BID 10/19 1000 AC 10/21 PO 2124 Guaifenesin/Codeine 10 ML Q6P PRN 10/20 0630 AC 10/22 Phosphate PO 0812 Hyoscyamine 0.125 MG Q4 HRS NEEDED PRN 10/19 1615 AC 10/22 PO 1240 Insulin Aspart 0 TIDAC/HS 10/20 1200 AC 10/22 SC 1233 Insulin Detemir 24 UNITS DAILY 10/23 1000 AC SC Insulin Detemir 24 UNITS BID 10/20 1000 DC 10/22 SC 0814 Ipratropium [place] 2.5 ML EVERY 4 HRS/AWAKE 10/22 1200 AC INH Ipratropium [place] 2.5 ML EVERY 4 HRS/AWAKE .. 10/20 1311 DC 10/22 INH 0843 Levothyroxine Sodium 0.025 MG DAILY AC 10/19 0743 AC 10/22 PO 0514 Lidocaine 1 PAT DAILY PRN 10/19 1845 AC 10/22 EXT 0456 Lisinopril 10 MG DAILY 10/20 1000 AC 10/22 PO 0821 Loratadine 10 MG DAILY 10/19 1000 AC 10/22 PO 0821 Metoprolol Tartrate 100 MG BID 10/19 2200 AC 10/22 PO 0821 Nystatin 1 JEROME TID PRN 10/20 1130 AC 10/22 TOP 0827 Omeprazole 40 MG DAILY AC 10/21 0916 AC 10/22 PO 0513 Ondansetron HCl 4 MG Q8P PRN 10/19 1615 AC 10/21 PO 0835 Oxycodone/ 1 TAB Q8P PRN 10/19 1730 AC 10/22 Acetaminophen PO 1241 Phenazopyridine HCl 200 MG TID PRN 10/19 1615 DC 10/20 PO 10/21 1614 0049 Polyethylene Glycol 17 GM DAILY 10/19 1000 AC 10/21 PO 0820 Senna/Docusate Sodium 2 TAB DAILY 10/19 1000 AC 10/22 PO 0821 Last 24 Hrs of Lab/Ludwig Results Last 24 Hrs of Labs/Mics: Laboratory Tests 10/22/17 0618: Anion Gap 7, Estimated GFR > 60, BUN/Creatinine Ratio 37.1 H, CBC w Diff NO MAN DIFF REQ, RBC 3.99 L, MCV 88.9, MCH 28.4, RDW 15.9 H, MPV 8.0, Gran % 75.4 H, Lymphocytes % 13.3 L, Monocytes % 9.5 H, Eosinophils % 1.4, Basophils % 0.4, Absolute Granulocytes 7.8 H, Absolute Lymphocytes 1.4, Absolute Monocytes 1.0 H, Absolute Eosinophils 0.1, Absolute Basophils 0, PUBS MCHC 31.9 L Assessment/Plan Assessment: Ms. Caceres is a 72 yo f with a PMH of Morbid obesity, A.fib on Pradaxa, hypertension, hyperlipidemia, IDDM, PVD, Chronic R foot ulcers, COPD on 2L home oxygen, chronic back pain, urinary incontinence, anxiety, depression, RA, history of MRSA and VRE BIBA to the [facility] from [facility] for hypoxia and unresponsiveness. Assessment and Plan: Acute hypoxic/hypercapnic Respiratory Failure: As per records and [facility], patient was found to have low O2 sats 78-79%. She was put on a NRB mask and her O2 sat increased to 98%. She was unresponsive at the time and foaming at the mouth. In the ED she was found to have a pH of 7.28 and CO2 of 69 and placed on BiPAP. * Her ABG from 10/20 shows high CO2 and HCO3. * Patient has been refusing BiPAP. She has been explained the necessity of using BiPAP should her condition deteriote. * Continue oxygen supplementation. She uses 2L on her baseline. * Pulm consult for further recommendations. * Her CTA shows opacity in RLL suspicious for pnemonia which could be due to aspiration. * Will continue her on IV Unasyn 3g q6 * Patient remains afebrile with white count improving * Incentive spirometry * Discontinue [place] inhibitor because of cough and starting patient on losartan Elevated Troponins: She was found to have mild elevations on troponins on admission which was likely due to Type II TN. No acute ECG changes were noted. * Echo was performed 10/20 which showed normal left ventrricular chamber size and systolic function. Mild atheromatous plaque is noted in the ascending thoracic aorta. * CTA was performed for further assessment of the mobile mass which showed ascending thoracic aorta is normal in course and caliber without dissection. * She had another episode of chest pain last night and her troponins were found to be further elevated to 1.17. They've trended down to 0.91. * Cardiology for futher recs. * She would require a pharmacologic nuclear stress test as an outpatient. History of Atrial Fibrilliation: Records in chart. Her unit manager rn-Dr. Tito Turner ([place]). 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 * Continue Pradaxa and metoprolol Chronic Medical Conditions: * Continue home meds Diet: Diabetic DVT Prophylaxis:On Pradaxa Code Status:DNR/DNI Problem List: 1. Hypercapnic respiratory failure Pain Ratin Pain Location: chest on coughing Pain Goal: Pain 4 or less Pain Plan: prn Tomorrow's Labs & Rationales: cbc bep Patrizia DE LEON,Amir 10/22/17 1001: Attending MD Review Statement Attending Statement Attending MD Statement: examined this patient, discuss w/resident/PA/CONSULTANTS INTERN, agreed w/resident/PA/CONSULTANTS INTERN, reviewed EMR data (avail), discussed with nursing Attending Assessment/Plan: Ms. Caceres was seen and evalauted. Briefly, she is a 72 yo lady with PMHx of morbid obesity, A.fib on Pradaxa, hypertension, hyperlipidemia, IDDM, PVD, Chronic R foot ulcers, COPD on 2L home oxygen, chronic back pain, urinary incontinence, anxiety, depression, RA, history of MRSA and VRE p/w hypoxia and unresponsiveness. Patient was initially managed in ICU and was then transferred to tele floor for continuation of management. She has been evaluated by Endo and Cards. A/P: Pulm: Currently, she is c/o intermittent cough and pain associated with coughing. CT showed Patchy opacity in the superior segment of the right lower lobe could represent aspiration, atelectasis, or pneumonia. -- recommend incentive spirometry CVS: most recent trop trending down. Echo didn't show WMA, pt probably has a type II TN with demand/supply mismatch. Cont to monitor. F/u Cards recommendations Rest of the plan as per resident's note
--- NOTE | 2017-10-22 12:35 | PN- Diabetes ---
Assessment/Plan Assessment: 72-year-old woman with a history of diabetes mellitus type 2 was transferred from a [place] [facility] to [facility] because of hypoxemia and change in mental status. Patient has type 2 diabetes associated with morbid obesity. She states she has had multiple procedures done on her feet due to infection and ulceration. The patient was on Lantus 40 units twice a day when at the [place] [facility]. We are told that she often refused her insulin. She was also on Humalog 14 units before each meal. At the present time the patient is on 24 units Levemir twice a day along with sliding scale NovoLog. But her meal intake has been poor, she received Levemir 12 units last night instead of 24 units. Her FSGs were 222, 97, 96 and 126. Plan: 1. decrease Levemir to 24 units daily; 2. decrease Novolog coverage before meals by 2 units; detail see the insulin order; 3. continue the current Novolog coverage at bedtime; 4. monitor FSGs. will follow. Inpatient Diabetes Orders Before Each Meal: Bolus Insulin: Novolog < 80 mg/dl: no coverage 80-100 mg/dl: 2 units 101-120 mg/dl: 2 units 121-150 mg/dl: 2 units 151-200 mg/dl: 4 units 201-250 mg/dl: 6 units 251-300 mg/dl: 8 units 301-350 mg/dl: 10 units 351-400 mg/dl: 12 units > 400 mg/dl: 14 units Subjective Subjective: her po intake has been decreased. Objective Last 24 Hrs of Vital Signs/I&O Vital Signs Date Time Temp Pulse Resp B/P B/P Pulse O2 O2 Flow FiO2 Mean Ox Delivery Rate 10/22 0846 97 Nasal 2.0L Cannula 10/22 0635 98.2 76 20 132/80 97 Nasal 2.0L Cannula 10/22 0000 92 Nasal 1.5L Cannula 10/21 2220 97.7 119 22 152/72 92 Nasal 1.5L Cannula 10/217 93 Nasal 1.0L Cannula 10/214 108 118/60 10/21 1710 96 Nasal 1.5L Cannula 10/21 1442 98.1 145 22 95 Nasal Cannula Intake & Output 10/22 1600 10/22 0800 10/22 0000 Intake Total 580 240 Output Total Balance 580 240 Intake, IV 100 Intake, Oral 480 240 Number 0 Bowel Movements Findings Pertinent Lab/Ludwig Results: Laboratory Tests 10/22 0618 Chemistry Sodium (137 - 145 mmol/L) 139 Potassium (3.5 - 5.1 mmol/L) 5.0 Chloride (98 - 107 mmol/L) 92 L Carbon Dioxide (22 - 30 mmol/L) 40 H Anion Gap (5 - 16) 7 BUN (7 - 17 mg/dL) 26 H Creatinine (0.5 - 1.0 mg/dL) 0.7 Estimated GFR (>60 ml/min) > 60 BUN/Creatinine Ratio (7 - 25 %) 37.1 H Hematology CBC w Diff NO MAN DIFF REQ WBC (4.8 - 10.8 /CUMM) 10.3 RBC (4.20 - 5.40 /CUMM) 3.99 L Hgb (12.0 - 16.0 G/DL) 11.3 L Hct (37 - 47 %) 35.4 L MCV (81.0 - 99.0 FL) 88.9 MCH (27.0 - 31.0 PG) 28.4 RDW (11.5 - 14.5 %) 15.9 H Plt Count (130 - 400 /CUMM) 242 MPV (7.4 - 10.4 FL) 8.0 Gran % (42.2 - 75.2 %) 75.4 H Lymphocytes % (20.5 - 51.1 %) 13.3 L Monocytes % (1.7 - 9.3 %) 9.5 H Eosinophils % (0 - 5 %) 1.4 Basophils % (0.0 - 2.0 %) 0.4 Absolute Granulocytes (1.4 - 6.5 /CUMM) 7.8 H Absolute Lymphocytes (1.2 - 3.4 /CUMM) 1.4 Absolute Monocytes (0.10 - 0.60 /CUMM) 1.0 H Absolute Eosinophils (0.0 - 0.7 /CUMM) 0.1 Absolute Basophils (0.0 - 0.2 /CUMM) 0 PUBS MCHC (33.0 - 37.0 G/DL) 31.9 L
--- NOTE | 2017-10-22 13:24 | PN- Pulmonary ---
Subjective HPI/Critical Care Issues: Sleeping still has left sided chest discomfort on coughing In afib Objective Current Medications: Current Medications Sig/Samantha Start time Last Medication Dose Route Stop Time Status Admin Albuterol Sulfate 3 ML EVERY 4 HRS/AWAKE 10/20 1600 AC 10/22 INH 0843 Ampicillin Sodium/ 1,500 MG Q6 10/20 1800 AC 10/22 Sulbactam Sodium IV 1233 Sodium Chloride 100 ML Aspirin Buffered 81 MG DAILY 10/19 1000 AC PO Atorvastatin Calcium 80 MG 1700 10/19 1700 AC 10/21 PO 1808 Calcium Carbonate 500 MG DAILY 10/21 1000 AC PO Clonazepam 0.5 MG BID PRN 10/19 1000 AC 10/22 PO 10/26 0959 0824 Dabigatran 150 MG BID 10/19 1000 AC 10/22 PO 0821 Duloxetine HCl 30 MG DAILY 10/19 1000 AC 10/22 PO 0821 Fluticasone 1 SPRAY DAILY 10/19 1000 AC 10/22 Propionate CHIDI 0827 Gabapentin 300 MG BID 10/19 1000 AC 10/21 PO 2124 Guaifenesin/Codeine 10 ML Q6P PRN 10/20 0630 AC 10/22 Phosphate PO 0812 Hyoscyamine 0.125 MG Q4 HRS NEEDED PRN 10/19 1615 AC 10/22 PO 1240 Insulin Aspart 0 TIDAC/HS 10/20 1200 AC 10/22 SC 1233 Insulin Detemir 24 UNITS DAILY 10/23 1000 AC SC Insulin Detemir 24 UNITS BID 10/20 1000 DC 10/22 SC 0814 Ipratropium [place] 2.5 ML EVERY 4 HRS/AWAKE 10/22 1200 AC INH Ipratropium [place] 2.5 ML EVERY 4 HRS/AWAKE .. 10/20 1311 DC 10/22 INH 0843 Levothyroxine Sodium 0.025 MG DAILY AC 10/19 0743 AC 10/22 PO 0514 Lidocaine 1 PAT DAILY PRN 10/19 1845 AC 10/22 EXT 0456 Lisinopril 10 MG DAILY 10/20 1000 AC 10/22 PO 0821 Loratadine 10 MG DAILY 10/19 1000 AC 10/22 PO 0821 Metoprolol Tartrate 100 MG BID 10/19 2200 AC 10/22 PO 0821 Nystatin 1 JEROME TID PRN 10/20 1130 AC 10/22 TOP 0827 Omeprazole 40 MG DAILY AC 10/21 0916 AC 10/22 PO 0513 Ondansetron HCl 4 MG Q8P PRN 10/19 1615 AC 10/21 PO 0835 Oxycodone/ 1 TAB Q8P PRN 10/19 1730 AC 10/22 Acetaminophen PO 1241 Phenazopyridine HCl 200 MG TID PRN 10/19 1615 DC 10/20 PO 10/21 1614 0049 Polyethylene Glycol 17 GM DAILY 10/19 1000 AC 10/21 PO 0820 Senna/Docusate Sodium 2 TAB DAILY 10/19 1000 AC 10/22 PO 0821 Vital Signs & I&O Last 24 Hrs of Vitals and I&O: Vital Signs Date Time Temp Pulse Resp B/P B/P Pulse O2 O2 Flow FiO2 Mean Ox Delivery Rate 10/22 0846 97 Nasal 2.0L Cannula 10/22 0635 98.2 76 20 132/80 97 Nasal 2.0L Cannula 10/22 0000 92 Nasal 1.5L Cannula 10/21 2220 97.7 119 22 152/72 92 Nasal 1.5L Cannula 10/21 2207 93 Nasal 1.0L Cannula 10/21 2124 108 118/60 10/21 1710 96 Nasal 1.5L Cannula 10/21 1442 98.1 145 22 95 Nasal Cannula Intake & Output 10/22 1600 10/22 0800 10/22 0000 Intake Total 580 240 Output Total Balance 580 240 Intake, IV 100 Intake, Oral 480 240 Number 0 Bowel Movements Laboratory Tests 10/22 10/21 10/21 0618 1228 0600 Chemistry Sodium (137 - 145 mmol/L) 139 Potassium (3.5 - 5.1 mmol/L) 5.0 Chloride (98 - 107 mmol/L) 92 L Carbon Dioxide (22 - 30 mmol/L) 40 H Anion Gap (5 - 16) 7 BUN (7 - 17 mg/dL) 26 H Creatinine (0.5 - 1.0 mg/dL) 0.7 Estimated GFR (>60 ml/min) > 60 BUN/Creatinine Ratio (7 - 25 %) 37.1 H Troponin I (< 0.11 ng/ml) 0.91 *H Cancelled Coagulation D-Dimer High Sensitivty (0 - 243 ng/ml) 205 Hematology CBC w Diff NO MAN DIFF REQ WBC (4.8 - 10.8 /CUMM) 10.3 RBC (4.20 - 5.40 /CUMM) 3.99 L Hgb (12.0 - 16.0 G/DL) 11.3 L Hct (37 - 47 %) 35.4 L MCV (81.0 - 99.0 FL) 88.9 MCH (27.0 - 31.0 PG) 28.4 RDW (11.5 - 14.5 %) 15.9 H Plt Count (130 - 400 /CUMM) 242 MPV (7.4 - 10.4 FL) 8.0 Gran % (42.2 - 75.2 %) 75.4 H Lymphocytes % (20.5 - 51.1 %) 13.3 L Monocytes % (1.7 - 9.3 %) 9.5 H Eosinophils % (0 - 5 %) 1.4 Basophils % (0.0 - 2.0 %) 0.4 Absolute Granulocytes (1.4 - 6.5 /CUMM) 7.8 H Absolute Lymphocytes (1.2 - 3.4 /CUMM) 1.4 Absolute Monocytes (0.10 - 0.60 /CUMM) 1.0 H Absolute Eosinophils (0.0 - 0.7 /CUMM) 0.1 Absolute Basophils (0.0 - 0.2 /CUMM) 0 PUBS MCHC (33.0 - 37.0 G/DL) 31.9 L 10/21 10/21 0500 0018 Chemistry Sodium (137 - 145 mmol/L) 139 Potassium (3.5 - 5.1 mmol/L) 5.0 Chloride (98 - 107 mmol/L) 92 L Carbon Dioxide (22 - 30 mmol/L) 39 H Anion Gap (5 - 16) 7 BUN (7 - 17 mg/dL) 34 H Creatinine (0.5 - 1.0 mg/dL) 0.7 Estimated GFR (>60 ml/min) > 60 BUN/Creatinine Ratio (7 - 25 %) 48.6 H Magnesium (1.6 - 2.3 mg/dL) 2.1 Troponin I (< 0.11 ng/ml) 1.17 *H Cancelled TSH (0.270 - 4.200 uIU/mL) 3.520 Free T4 (0.78 - 2.44 ng/dL) 0.98 Hematology CBC w Diff NO MAN DIFF REQ WBC (4.8 - 10.8 /CUMM) 12.5 H RBC (4.20 - 5.40 /CUMM) 4.07 L Hgb (12.0 - 16.0 G/DL) 11.5 L Hct (37 - 47 %) 36.1 L MCV (81.0 - 99.0 FL) 88.8 MCH (27.0 - 31.0 PG) 28.2 RDW (11.5 - 14.5 %) 15.7 H Plt Count (130 - 400 /CUMM) 303 MPV (7.4 - 10.4 FL) 8.3 Gran % (42.2 - 75.2 %) 78.1 H Lymphocytes % (20.5 - 51.1 %) 10.0 L Monocytes % (1.7 - 9.3 %) 11.4 H Eosinophils % (0 - 5 %) 0.1 Basophils % (0.0 - 2.0 %) 0.4 Absolute Granulocytes (1.4 - 6.5 /CUMM) 9.8 H Absolute Lymphocytes (1.2 - 3.4 /CUMM) 1.2 Absolute Monocytes (0.10 - 0.60 /CUMM) 1.4 H Absolute Eosinophils (0.0 - 0.7 /CUMM) 0 Absolute Basophils (0.0 - 0.2 /CUMM) 0.1 PUBS MCHC (33.0 - 37.0 G/DL) 31.8 L 10/20 1325 Blood Gas pH (7.35 - 7.45 PH) 7.36 pCO2 (35 - 45 TORR) 60 *H pO2 (80 - 100 TORR) 96 HCO3 (21 - 28 MEQ/L) 33 H ABG O2 Sat (Measured) (>96.0 %) 95.0 L P-50 (Temp Corrected) N Carboxyhemoglobin (1.5 - 5.0 %) 2.5 O2 Concentration % 1.5 LPM O2 Delivery Method NC Miscellaneous Phlebotomy Draw Site RIGHT BRACHIAL Impression/Plan Impression/Plan Impression/Plan: CT chest MPRESSION: 1. No evidence of thoracic aortic aneurysm or dissection. 2. Patchy opacity in the superior segment of the right lower lobe could represent aspiration, atelectasis, or pneumonia. IMPRESSION 72-year-old female with PMH of atrial fibrillation, hypertension, hyperlipidemia , DM, PVD, COPD, chronic back pain, and anxiety. She presented to the ED from [facility] for evaluation of altered mental status with hypercarbia who responded quickly with bipap ISsues Resolving hypercarbic resp failure due to chronic lung disease with prob sig OHV (off bipap now) Atx unlikely pna as noted in the ct Cough with chest wall strain Chronic lung disease wih copd Afib and other med issues stable IHD LBA, urinary incont previous mrsa Rule out aspiration REC cont current care Keep oxygen sat at 92 Change lisinopril to losartan due to sig cough IV abx can be dcd soon I am not sure that she has a sig pneumonia Cardio follow up cont anticoag will follow Hold bipap as pt was not keen on it and observe
[2017-10-22 14:38] VITALS: BP 130/76
[2017-10-22 22:21] VITALS: BP 126/78
[2017-10-23 06:44] VITALS: BP 140/84
--- NOTE | 2017-10-23 08:24 | PN- Housestaff ---
Selene DE LEON,[facility] 10/23/17 0823: Subjective Follow-up For: Acute hypoxic respiratory failure [place] Tele-Events Since Last Visit: [place] with HR 89-105. No overnight events. Subjective: Patient was seen and examined at bedside. She reports having a constant left sided chest pain. Review of Systems Constitutional: Reports: no symptoms. Objective Last 24 Hrs of Vital Signs/I&O Vital Signs Date Time Temp Pulse Resp B/P B/P Pulse O2 O2 Flow FiO2 Mean Ox Delivery Rate 10/23 0845 116 140/84 10/23 0845 116 140/84 10/23 0817 92 Nasal 1.5L Cannula 10/23 0800 94 Nasal 2.0L Cannula 10/23 0644 97.3 116 20 140/84 94 Nasal 2.0L Cannula 10/23 0029 Nasal 1.5L Cannula 10/23 0000 Nasal 2.0L Cannula 10/22 2221 98.8 104 20 126/78 95 Nasal Cannula 10/22 2214 109 126/78 10/22 1859 96 Nasal 1.5L Cannula 10/22 1600 Nasal 2.0L Cannula 10/22 1438 98.1 111 20 130/76 100 Nasal 2.0L Cannula Intake & Output 10/23 1600 10/23 0800 10/23 0000 Intake Total 360 480 Output Total Balance 360 480 Intake, IV 240 Intake, Oral 120 480 Physical Exam General Appearance: Alert, Oriented X3, Cooperative, No Acute Distress Skin: No Rashes, No Breakdown Skin Temp/Moisture Exam: Warm/Dry Sepsis Skin Exam (color): Normal for Ethnicity HEENT: Atraumatic Cardiovascular: Normal S1, Normal S2, No Murmurs Lungs: Clear to Auscultation, Normal Air Movement Abdomen: Soft, No Tenderness Neurological: Normal Speech Extremities: non pitting edema Assessment/Plan Assessment: Ms. Caceres is a 72 yo f with a PMH of Morbid obesity, A.dulce on Pradaxa, hypertension, hyperlipidemia, IDDM, PVD, Chronic R foot ulcers, COPD on 2L home oxygen, chronic back pain, urinary incontinence, anxiety, depression, RA, history of MRSA and VRE BIBA to the ED from [facility] for hypoxia and unresponsiveness. Assessment and Plan: Acute hypoxic/hypercapnic Respiratory Failure: As per records and [facility], patient was found to have low O2 sats 78-79%. She was put on a NRB mask and her O2 sat increased to 98%. She was unresponsive at the time and foaming at the mouth. In the ED she was found to have a pH of 7.28 and CO2 of 69 and placed on BiPAP. * Her ABG from 10/20 shows high CO2 and HCO3. * Will repeat ABG today 10/23 as she appears to be lethargic again. * Patient has been refusing BiPAP. She has been explained the necessity of using BiPAP should her condition deteriote. * Continue oxygen supplementation. She uses 2L on her baseline. * Pulm consult for further recommendations. * Her CTA shows opacity in RLL suspicious for pnemonia which could be due to aspiration. * Will change IV to PO Azithromycin for 5 days. Patient has an allergy listed to cephalosporins. * Patient remains afebrile with no white count. * Incentive spirometry * Discontinue [place] inhibitor because of cough and starting patient on losartan Elevated Troponins: She was found to have mild elevations on troponins on admission which was likely due to Type II [place]. No acute ECG changes were noted. * Echo was performed 10/20 which showed normal left ventrricular chamber size and systolic function. Mild atheromatous plaque is noted in the ascending thoracic aorta. * CTA was performed for further assessment of the mobile mass which showed ascending thoracic aorta is normal in course and caliber without dissection. * She had another episode of chest pain two nights ago and her troponins were found to be further elevated to 1.17. They've trended down to 0.91. * She would require a pharmacologic nuclear stress test as an outpatient. History of Atrial Fibrilliation: Records in chart. Her email production consultant-Dr. Tito Turner ([email or web address]). 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 * Continue Pradaxa and metoprolol Chronic Medical Conditions: * Continue home meds Diet: Diabetic DVT Prophylaxis:On Pradaxa Code Status:DNR/DNI Problem List: 1. Hypercapnic respiratory failure Pain Ratin Pain Location: none Pain Goal: Remain pain free Pain Plan: none Tomorrow's Labs & Rationales: CBC, BEP Patrizia DE LEON,Amir 10/23/17 0952: Attending MD Review Statement Attending Statement Attending MD Statement: examined this patient, discuss w/resident/PA/MANAGER LANDSCAPE, agreed w/resident/PA/MANAGER LANDSCAPE, reviewed EMR data (avail), discussed with nursing Attending Assessment/Plan: Pt was seen and evalauted. Chart reviewed. Currently, reports better pain control. Pt evalauted by Manuel Collier trending down. Appreciate Endo's input, adjust insulin as recommended f/u Cards recommendation Cont to montior rest of the plan as per resident's note
[2017-10-23 08:35] LABS: ABSOLUTE BASOPHIL COUNT 0 /CUMM (0.0-0.2); ABSOLUTE EOSINOPHIL COUNT 0.2 /CUMM (0.0-0.7); ABSOLUTE LYMPH COUNT 1.1 /CUMM (1.2-3.4); BASOPHIL % 0.3 % (0.0-2.0); RED BLOOD CELL CT 3.09 /CUMM (4.20-5.40)
[2017-10-23 08:53] LABS: ABSOLUTE GRANULOCYTE CT 6.8 /CUMM (1.4-6.5); ABSOLUTE MONOCYTE COUNT 0.5 /CUMM (0.10-0.60); EOSINOPHIL % 2.1 % (0-5); GRANULOCYTE % 79.1 % (42.2-75.2); MEAN CORPUSCULAR HGB 29.4 PG (27.0-31.0); MEAN CORPUSCULAR HGB CONC 32.5 G/DL (33.0-37.0); MEAN CORPUSCULAR VOLUME 90.3 FL (81.0-99.0); MEAN PLATELET VOLUME 8.5 FL (7.4-10.4); PLATELET COUNT 191 /CUMM (130-400); WHITE BLOOD CELL COUNT 8.6 /CUMM (4.8-10.8)
[2017-10-23 08:58] LABS: HEMATOCRIT 27.9 % (37-47)
--- NOTE | 2017-10-23 10:42 | PN- Diabetes ---
Assessment/Plan Assessment: 72-year-old woman with a history of diabetes mellitus type 2 was transferred from a [facility] to [facility] because of hypoxemia and change in mental status. Patient has type 2 diabetes associated with morbid obesity. She states she has had multiple procedures done on her feet due to infection and ulceration. The patient was on Lantus 40 units twice a day when at the sn[facility]. We are told that she often refused her insulin. She was also on Humalog 14 units before each meal. In hospital, patient was on 24 units Levemir twice a day along with sliding scale NovoLog. But her meal intake was poor, and Levemir was decreased to 24 units daily and Novolog coverage before meal was adjusted. Her FSGs were 97, 186 and 273. Plan: 1. recommend repeating ABG; 2. adjust Levemir to 16 units twice a day; 3. continue the current Novolog coverage before meals and Novolog coverage at bedtime; 4. monitor FSGs. will follow. Subjective Subjective: Patient appears sleepy this morning. Objective Last 24 Hrs of Vital Signs/I&O Vital Signs Date Time Temp Pulse Resp B/P B/P Pulse O2 O2 Flow FiO2 Mean Ox Delivery Rate 10/23 0845 116 140/84 10/23 0845 116 140/84 10/23 0817 92 Nasal 1.5L Cannula 10/23 0800 94 Nasal 2.0L Cannula 10/23 0644 97.3 116 20 140/84 94 Nasal 2.0L Cannula 10/23 0029 Nasal 1.5L Cannula 10/23 0000 Nasal 2.0L Cannula 10/22 2221 98.8 104 20 126/78 95 Nasal Cannula 10/22 2214 109 126/78 10/22 1859 96 Nasal 1.5L Cannula 10/22 1600 Nasal 2.0L Cannula 10/22 1438 98.1 111 20 130/76 100 Nasal 2.0L Cannula Intake & Output 10/23 1600 10/23 0800 10/23 0000 Intake Total 360 480 Output Total Balance 360 480 Intake, IV 240 Intake, Oral 120 480 Findings Pertinent Lab/Ludwig Results: Laboratory Tests 10/23 10/22 0655 1430 Chemistry Sodium (137 - 145 mmol/L) 136 L Potassium (3.5 - 5.1 mmol/L) 4.5 Chloride (98 - 107 mmol/L) 90 L Carbon Dioxide (22 - 30 mmol/L) 41 H Anion Gap (5 - 16) 5 BUN (7 - 17 mg/dL) 16 Creatinine (0.5 - 1.0 mg/dL) 0.7 Estimated GFR (>60 ml/min) > 60 BUN/Creatinine Ratio (7 - 25 %) 22.9 Troponin I (< 0.11 ng/ml) 0.69 *H Hematology CBC w Diff NO MAN DIFF REQ WBC (4.8 - 10.8 /CUMM) 8.6 RBC (4.20 - 5.40 /CUMM) 3.09 L Hgb (12.0 - 16.0 G/DL) 9.1 L Hct (37 - 47 %) 27.9 L MCV (81.0 - 99.0 FL) 90.3 MCH (27.0 - 31.0 PG) 29.4 RDW (11.5 - 14.5 %) 16.0 H Plt Count (130 - 400 /CUMM) 191 MPV (7.4 - 10.4 FL) 8.5 Gran % (42.2 - 75.2 %) 79.1 H Lymphocytes % (20.5 - 51.1 %) 12.2 L Monocytes % (1.7 - 9.3 %) 6.3 Eosinophils % (0 - 5 %) 2.1 Basophils % (0.0 - 2.0 %) 0.3 Absolute Granulocytes (1.4 - 6.5 /CUMM) 6.8 H Absolute Lymphocytes (1.2 - 3.4 /CUMM) 1.1 L Absolute Monocytes (0.10 - 0.60 /CUMM) 0.5 Absolute Eosinophils (0.0 - 0.7 /CUMM) 0.2 Absolute Basophils (0.0 - 0.2 /CUMM) 0 PUBS MCHC (33.0 - 37.0 G/DL) 32.5 L
--- NOTE | 2017-10-23 12:05 | PN- Pulmonary ---
Subjective HPI/Critical Care Issues: Patient was seen and examined at bedside. She reports having a constant left sided chest pain uptil this am now resolved Review of Systems Constitutional: Reports: no symptoms. Objective Current Medications: Current Medications Sig/Samantha Start time Last Medication Dose Route Stop Time Status Admin Al Hydroxide/Mg 30 ML ONCE PRN 10/22 1630 DC Hydroxide PO 10/22 2300 Albuterol Sulfate 3 ML EVERY 4 HRS/AWAKE 10/20 1600 AC 10/23 INH 0814 Ampicillin Sodium/ 1,500 MG Q6 10/20 1800 AC 10/23 Sulbactam Sodium IV 0613 Sodium Chloride 100 ML Aspirin Buffered 81 MG DAILY 10/19 1000 AC 10/23 PO 0845 Atorvastatin Calcium 80 MG 1700 10/19 1700 AC 10/21 PO 1808 Calcium Carbonate 500 MG DAILY 10/21 1000 DC PO Clonazepam 0.5 MG BID PRN 10/19 1000 AC 10/23 PO / 0959 0847 Dabigatran 150 MG BID 10/19 1000 AC 10/23 PO 0859 Duloxetine HCl 30 MG DAILY 10/19 1000 AC 10/23 PO 0845 Fluticasone 1 SPRAY DAILY 10/19 1000 AC 10/22 Propionate CHIDI 0827 Gabapentin 300 MG BID 10/19 1000 AC 10/23 PO 0846 Guaifenesin/Codeine 10 ML Q6P PRN 10/20 0630 AC 10/23 Phosphate PO 0846 Hyoscyamine 0.125 MG Q4 HRS NEEDED PRN 10/19 1615 AC 10/22 PO 2342 Insulin Aspart 0 TIDAC/HS 10/20 1200 AC 10/23 SC 0846 Insulin Detemir 16 UNITS BID 10/23 2200 AC SC Insulin Detemir 24 UNITS DAILY 10/23 1000 DC 10/23 SC 0846 Ipratropium [place] 2.5 ML EVERY 4 HRS/AWAKE 10/22 1200 AC 10/23 INH 0814 Levothyroxine Sodium 0.025 MG DAILY AC 10/19 0743 AC 10/23 PO 0612 Lidocaine 1 PAT ONCE ONE 10/23 0915 DC EXT 10/23 0916 Lidocaine 1 PAT DAILY PRN 10/19 1845 AC 10/22 EXT 0456 Lisinopril 10 MG DAILY 10/20 1000 DC 10/22 PO 0821 Loratadine 10 MG DAILY 10/19 1000 AC 10/23 PO 0845 Losartan Potassium 50 MG DAILY 10/23 1000 AC 10/23 PO 0845 Metoprolol Tartrate 100 MG BID 10/19 2200 AC 10/23 PO 0845 Nystatin 1 JEROME TID PRN 10/20 1130 AC 10/22 TOP 0827 Omeprazole 40 MG DAILY AC 10/21 0916 AC 10/23 PO 0612 Ondansetron HCl 4 MG Q8P PRN 10/19 1615 AC 10/21 PO 0835 Oxycodone/ 1 TAB Q8P PRN 10/19 1730 AC 10/23 Acetaminophen PO 0612 Polyethylene Glycol 17 GM DAILY 10/19 1000 AC 10/21 PO 0820 Senna/Docusate Sodium 2 TAB DAILY 10/19 1000 AC 10/23 PO 0859 Simethicone 80 MG Q6P PRN 10/22 1630 AC PO Vital Signs & I&O Last 24 Hrs of Vitals and I&O: Vital Signs Date Time Temp Pulse Resp B/P B/P Pulse O2 O2 Flow FiO2 Mean Ox Delivery Rate 10/23 0845 116 140/84 10/23 0845 116 140/84 10/23 0817 92 Nasal 1.5L Cannula 10/23 0800 94 Nasal 2.0L Cannula 10/23 0644 97.3 116 20 140/84 94 Nasal 2.0L Cannula 10/23 0029 Nasal 1.5L Cannula 10/23 0000 Nasal 2.0L Cannula 10/22 2221 98.8 104 20 126/78 95 Nasal Cannula 10/22 2214 109 126/78 10/22 1859 96 Nasal 1.5L Cannula 10/22 1600 Nasal 2.0L Cannula 10/22 1438 98.1 111 20 130/76 100 Nasal 2.0L Cannula Intake & Output 10/23 1600 10/23 0800 10/23 0000 Intake Total 360 480 Output Total Balance 360 480 Intake, IV 240 Intake, Oral 120 480 Impression/Plan Impression/Plan Impression/Plan: CT chest MPRESSION: 1. No evidence of thoracic aortic aneurysm or dissection. 2. Patchy opacity in the superior segment of the right lower lobe could represent aspiration, atelectasis, or pneumonia. IMPRESSION 72-year-old female with PMH of atrial fibrillation, hypertension, hyperlipidemia , DM, PVD, COPD, chronic back pain, and anxiety. She presented to the ED from [facility] for evaluation of altered mental status with hypercarbia who responded quickly with bipap ISsues Resolving hypercarbic resp failure due to chronic lung disease with prob sig OHV (off bipap now) Atx unlikely pna as noted in the ct Cough with chest wall strain and pain Chronic lung disease with copd Afib and other med issues stable IHD LBA, urinary incont previous mrsa Rule out aspiration REC cont current care Keep oxygen sat at 92 Cont losartan Lidoderm patch for pain Change to po abx Cardio follow up cont anticoag will follow Hold bipap as pt was not keen on it and observe
[2017-10-23 14:31] VITALS: BP 102/54
--- NOTE | 2017-10-23 16:42 | Event Note ---
Event Note Event Note: Situation: Patient refusing oral antibiotics Brief: Patient reports that any oral antibiotics tend to give her an extremely painful stomach ache. She was explained in depth about the reason for the medication. However, the patient is adamant about not taking. A/R: * Will observe her off antibiotics for now. * She has been afebrile throughout her course and her white count is normal.
[2017-10-23 23:45] VITALS: BP 138/78
[2017-10-24 08:17] LABS: ABSOLUTE BASOPHIL COUNT 0 /CUMM (0.0-0.2); ABSOLUTE EOSINOPHIL COUNT 0.2 /CUMM (0.0-0.7); ABSOLUTE MONOCYTE COUNT 0.7 /CUMM (0.10-0.60); MEAN CORPUSCULAR HGB 28.7 PG (27.0-31.0); RBC DISTRIBUTION WIDTH 15.6 % (11.5-14.5)
[2017-10-24 08:40] LABS: ABSOLUTE GRANULOCYTE CT 8.5 /CUMM (1.4-6.5); ABSOLUTE LYMPH COUNT 1.2 /CUMM (1.2-3.4); BASOPHIL % 0.2 % (0.0-2.0); EOSINOPHIL % 1.9 % (0-5); GRANULOCYTE % 79.7 % (42.2-75.2); MEAN CORPUSCULAR VOLUME 89.4 FL (81.0-99.0); MEAN PLATELET VOLUME 8.6 FL (7.4-10.4); PLATELET COUNT 238 /CUMM (130-400); RED BLOOD CELL CT 3.82 /CUMM (4.20-5.40); WHITE BLOOD CELL COUNT 10.6 /CUMM (4.8-10.8)
[2017-10-24 08:54] LABS: HEMATOCRIT 34.2 % (37-47)
--- NOTE | 2017-10-24 09:25 | PN- Housestaff ---
Annie DE LEON,Danielle 10/24/17 0925: Subjective Follow-up For: Acute hypoxic respiratory failure [place] Tele-Events Since Last Visit: Danielle cardona with heart rate 90-100 no events Subjective: He shouldn't seen and examined. No complaints. She is eager to leave. Review of Systems Constitutional: Reports: no symptoms. EENTM: Reports: no symptoms. Cardiovascular: Reports: no symptoms. Respiratory: Reports: no symptoms. Gastrointestinal: Reports: no symptoms. Genitourinary: Reports: no symptoms. Musculoskeletal: Reports: no symptoms. Skin: Reports: no symptoms. Objective Last 24 Hrs of Vital Signs/I&O Vital Signs Date Time Temp Pulse Resp B/P B/P Pulse O2 O2 Flow FiO2 Mean Ox Delivery Rate 10/24 2050 133 128/80 10/24 1531 98.6 99 20 122/70 95 10/24 1147 96 Nasal 1.5L Cannula 10/24 0929 96 138/78 10/24 0928 96 138/78 10/24 0900 Nasal 1.5L Cannula 10/24 0632 98 Nasal 1.5L Cannula 10/24 0000 Nasal 1.5L Cannula 10/23 2345 98.2 96 22 138/78 93 Nasal Cannula Intake & Output 10/24 1600 10/24 0800 10/24 0000 Intake Total 600 320 570 Output Total Balance 600 320 570 Intake, IV 20 Intake, Oral 600 320 550 Number 0 Bowel Movements Physical Exam General Appearance: Alert, Oriented X3, Cooperative Skin: No Rashes, No Breakdown Skin Temp/Moisture Exam: Warm/Dry HEENT: Atraumatic Cardiovascular: Normal S1, Normal S2, No Murmurs Lungs: Clear to Auscultation, Normal Air Movement Abdomen: Normal Bowel Sounds, Soft Current Medications: Current Medications Sig/Samantha Start time Last Medication Dose Route Stop Time Status Admin Albuterol Sulfate 3 ML EVERY 4 HRS/AWAKE 10/20 1600 AC 10/24 INH 2046 Aspirin Buffered 81 MG DAILY 10/19 1000 AC 10/24 PO 09 Atorvastatin Calcium 80 MG 1700 10/19 1700 AC 10/24 PO 1801 Azithromycin 500 MG DAILY 10/25 1000 AC PO 10/29 1001 Clonazepam 0.5 MG BID PRN 10/19 1000 AC 10/24 PO 10/26 0959 205 Dabigatran 150 MG BID 10/19 1000 AC 10/24 PO 205 Duloxetine HCl 30 MG DAILY 10/19 1000 AC 10/24 PO 0926 Fluticasone 1 SPRAY DAILY 10/19 1000 AC 10/24 Propionate CHIDI 0930 Gabapentin 300 MG BID 10/19 1000 AC 10/24 PO 2050 Guaifenesin/Codeine 10 ML Q6P PRN 10/20 0630 AC 10/24 Phosphate PO 0923 Hyoscyamine 0.125 MG Q4 HRS NEEDED PRN 10/19 1615 AC 10/24 PO 2050 Insulin Aspart 0 TIDAC/HS 10/20 1200 AC 10/24 SC 2051 Insulin Detemir 20 UNITS BID 10/24 2200 AC 10/24 SC 2051 Insulin Detemir 16 UNITS BID 10/23 2200 DC 10/24 SC 09 Ipratropium [place] 2.5 ML EVERY 4 HRS/AWAKE 10/22 1200 AC 10/24 INH 2046 Levothyroxine Sodium 0.025 MG DAILY AC 10/19 0743 AC 10/24 PO 0629 Lidocaine 1 PAT ONCE ONE 10/24 1345 DC EXT 10/24 1346 Lidocaine 1 PAT DAILY PRN 10/19 1845 AC 10/24 EXT 1216 Loratadine 10 MG DAILY 10/19 1000 AC 10/24 PO 0926 Losartan Potassium 50 MG DAILY 10/23 1000 AC 10/24 PO 0929 Metoprolol Tartrate 150 MG BID 10/24 2200 AC 10/24 PO 2050 Metoprolol Tartrate 100 MG BID 10/19 2200 DC 10/24 PO 0928 Nystatin 1 JEROME TID PRN 10/20 1130 DC 10/23 TOP 2102 Omeprazole 40 MG DAILY AC 10/21 0916 AC 10/24 PO 0629 Ondansetron HCl 4 MG Q8P PRN 10/19 1615 AC 10/21 PO 0835 Oxycodone/ 1 TAB Q8P PRN 10/19 1730 AC 10/24 Acetaminophen PO 2050 Polyethylene Glycol 17 GM DAILY 10/19 1000 AC 10/24 PO 0930 Senna/Docusate Sodium 2 TAB DAILY 10/19 1000 AC 10/24 PO 0927 Simethicone 80 MG Q6P PRN 10/22 1630 AC 10/24 PO 2050 Last 24 Hrs of Lab/Ludwig Results Last 24 Hrs of Labs/Mics: Laboratory Tests 10/24/17 0654: Anion Gap 7, Estimated GFR > 60, BUN/Creatinine Ratio 26.0 H, CBC w Diff NO MAN DIFF REQ, RBC 3.82 L, MCV 89.4, MCH 28.7, RDW 15.6 H, MPV 8.6, Gran % 79.7 H, Lymphocytes % 11.7 L, Monocytes % 6.5, Eosinophils % 1.9, Basophils % 0.2, Absolute Granulocytes 8.5 H, Absolute Lymphocytes 1.2, Absolute Monocytes 0.7 H, Absolute Eosinophils 0.2, Absolute Basophils 0, PUBS MCHC 32.0 L Assessment/Plan Assessment: Ms. Caceres is a 72 yo f with a PMH of Morbid obesity, A.fib on Pradaxa, hypertension, hyperlipidemia, IDDM, PVD, Chronic R foot ulcers, COPD on 2L home oxygen, chronic back pain, urinary incontinence, anxiety, depression, RA, history of MRSA and VRE BIBA to the ED from [facility] for hypoxia and unresponsiveness. Assessment and Plan: Acute hypoxic/hypercapnic Respiratory Failure: As per records and [facility], patient was found to have low O2 sats 78-79%. She was put on a NRB mask and her O2 sat increased to 98%. She was unresponsive at the time and foaming at the mouth. In the ED she was found to have a pH of 7.28 and CO2 of 69 and placed on BiPAP. * Her ABG from 10/20 shows high CO2 and HCO3. * Patient has been refusing BiPAP. She has been explained the necessity of using BiPAP should her condition deteriote. * Continue oxygen supplementation. She uses 2L on her baseline. * Pulm consult for further recommendations. * Her CTA shows opacity in RLL suspicious for pnemonia which could be due to aspiration. * Will change IV to PO Azithromycin for 5 days. Patient has an allergy listed to cephalosporins. * Patient remains afebrile with no white count. * Incentive spirometry * Discontinue [place] inhibitor because of cough and starting patient on losartan Elevated Troponins: She was found to have mild elevations on troponins on admission which was likely due to Type II CA. No acute ECG changes were noted. * Echo was performed 10/20 which showed normal left ventrricular chamber size and systolic function. Mild atheromatous plaque is noted in the ascending thoracic aorta. * CTA was performed for further assessment of the mobile mass which showed ascending thoracic aorta is normal in course and caliber without dissection. * She had another episode of chest pain two nights ago and her troponins were found to be further elevated to 1.17. They've trended down to 0.91. * She would require a pharmacologic nuclear stress test as an outpatient. History of Atrial Fibrilliation: Records in chart. Her chief librarian branch-Dr. Tito Turner ([place]). 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 * Continue Pradaxa * Increase metoprolol to 150 mg twice a day Chronic Medical Conditions: * Continue home meds Diabetes * Increase Levemir to 20 twice a day as per Dr. amato. Diet: Diabetic DVT Prophylaxis:On Pradaxa Code Status:DNR/DNI Problem List: 1. Hypercapnic respiratory failure Pain Ratin Pain Location: None Pain Goal: Remain pain free Pain Plan: None Tomorrow's Labs & Rationales: CBC BEP Patrizia DE LEON,Amir 10/24/17 0935: Attending MD Review Statement Attending Statement Attending MD Statement: examined this patient, discuss w/resident/PA/ANTHROPOLOGY INSTRUCTOR, agreed w/resident/PA/ANTHROPOLOGY INSTRUCTOR, reviewed EMR data (avail), discussed with nursing Attending Assessment/Plan: Pt was seen and evalauted. Chart reviewed. Currently, reports better pain control. Eating OK. Pt evalauted by Manuel Collier trending down. Appreciate Endo's input, adjust insulin as recommended f/u Cards recommendation In terms of dispo, pt doens't want to return to [facility] and instead wourl prefer [facility] in [place]. Need to update Care coordinater rest of the plan as per resident's note
--- NOTE | 2017-10-24 09:35 | PN- Pulmonary ---
Subjective HPI/Critical Care Issues: Resting comfortably Afebrile Oxygen saturation 95% on 3 L Blood pressures stable Last chest x-ray showed perihilar density with mild pleural effusion Her bicarbonate today is 39 which is slightly better potassium is adequate magnesium is 2.1 white count 10.6 hemoglobin 10.9 last ABG from 2 days ago reviewed Objective Current Medications: Current Medications Sig/Samantha Start time Last Medication Dose Route Stop Time Status Admin Albuterol Sulfate 3 ML EVERY 4 HRS/AWAKE 10/20 1600 AC 10/24 INH 0606 Ampicillin Sodium/ 1,500 MG Q6 10/20 1800 DC 10/23 Sulbactam Sodium IV 1241 Sodium Chloride 100 ML Aspirin Buffered 81 MG DAILY 10/19 1000 AC 10/23 PO 0845 Atorvastatin Calcium 80 MG 1700 10/19 1700 AC 10/21 PO 1808 Azithromycin 500 MG DAILY 10/23 1241 DC PO 10/27 1001 Clonazepam 0.5 MG BID PRN 10/19 1000 AC 10/23 PO 10/26 0959 2048 Dabigatran 150 MG BID 10/19 1000 AC 10/23 PO 2048 Duloxetine HCl 30 MG DAILY 10/19 1000 AC 10/23 PO 0845 Fluticasone 1 SPRAY DAILY 10/19 1000 AC 10/23 Propionate CHIDI 1241 Gabapentin 300 MG BID 10/19 1000 AC 10/23 PO 2048 Guaifenesin/Codeine 10 ML Q6P PRN 10/20 0630 AC 10/23 Phosphate PO 2048 Hyoscyamine 0.125 MG Q4 HRS NEEDED PRN 10/19 1615 AC 10/23 PO 2048 Insulin Aspart 0 TIDAC/HS 10/20 1200 AC 10/23 SC 1627 Insulin Detemir 16 UNITS BID 10/23 2200 AC 10/23 SC 2047 Insulin Detemir 24 UNITS DAILY 10/23 1000 DC 10/23 SC 0846 Ipratropium [place] 2.5 ML EVERY 4 HRS/AWAKE 10/22 1200 AC 10/24 INH 0606 Levothyroxine Sodium 0.025 MG DAILY AC 10/19 0743 AC 10/24 PO 0629 Lidocaine 1 PAT DAILY PRN 10/19 1845 AC 10/22 EXT 0456 Loratadine 10 MG DAILY 10/19 1000 AC 10/23 PO 0845 Losartan Potassium 50 MG DAILY 10/23 1000 AC 10/23 PO 0845 Metoprolol Tartrate 100 MG BID 10/19 2200 AC 10/23 PO 2049 Nystatin 1 JEROME TID PRN 10/20 1130 10/23 TOP 2102 Omeprazole 40 MG DAILY AC 10/21 0916 AC 10/24 PO 0629 Ondansetron HCl 4 MG Q8P PRN 10/19 1615 AC 10/21 PO 0835 Oxycodone/ 1 TAB Q8P PRN 10/19 1730 AC 10/23 Acetaminophen PO 1747 Polyethylene Glycol 17 GM DAILY 10/19 1000 AC 10/21 PO 0820 Senna/Docusate Sodium 2 TAB DAILY 10/19 1000 AC 10/23 PO 0859 Simethicone 80 MG Q6P PRN 10/22 1630 AC 10/23 PO 2155 Vital Signs & I&O Last 24 Hrs of Vitals and I&O: Vital Signs Date Time Temp Pulse Resp B/P B/P Pulse O2 O2 Flow FiO2 Mean Ox Delivery Rate 10/24 0632 98 Nasal 1.5L Cannula 10/24 0000 Nasal 1.5L Cannula 10/23 2345 98.2 96 22 138/78 93 Nasal Cannula 10/23 2049 121 136/70 10/23 1709 92 Nasal 1.0L Cannula 10/23 1600 Nasal 1.5L Cannula 10/23 1431 98.2 89 20 102/54 98 Intake & Output 10/24 1600 10/24 0800 10/24 0000 Intake Total 320 570 Output Total Balance 320 570 Intake, IV 20 Intake, Oral 320 550 Number 0 Bowel Movements Impression/Plan Impression/Plan Impression/Plan: CT chest MPRESSION: 1. No evidence of thoracic aortic aneurysm or dissection. 2. Patchy opacity in the superior segment of the right lower lobe could represent aspiration, atelectasis, or pneumonia. IMPRESSION 72-year-old female with PMH of atrial fibrillation, hypertension, hyperlipidemia , DM, PVD, COPD, chronic back pain, and anxiety. She presented to the ED from [facility] for evaluation of altered mental status with hypercarbia who responded quickly with bipap ISsues Resolving hypercarbic resp failure due to chronic lung disease with prob sig OHV (off bipap now) Atx unlikely pna as noted in the ct Cough with chest wall strain and pain Chronic lung disease with copd Afib and other med issues stable IHD LBA, urinary incont previous mrsa Rule out aspiration REC cont current care Keep oxygen sat at 92 Cont losartan Lidoderm patch for pain By mouth antibiotics for a total duration of antibiotics of 7 days Cardio follow up cont anticoag will follow Hold bipap as pt was not keen on it and observe
--- NOTE | 2017-10-24 10:59 | PN- Diabetes ---
Assessment/Plan Assessment: 72-year-old woman with a history of diabetes mellitus type 2 was transferred from a half-way to [facility] because of hypoxemia and change in mental status. Patient has type 2 diabetes associated with morbid obesity. She states she has had multiple procedures done on her feet due to infection and ulceration. The patient was on Lantus 40 units twice a day when at the half-way. We are told that she often refused her insulin. She was also on Humalog 14 units before each meal. In hospital, patient was on 24 units Levemir twice a day along with sliding scale NovoLog. But her meal intake was poor, and Levemir was decreased to 24 units daily and Novolog coverage before meal was adjusted. Her FSGs were 97, 186 and 273. Levemir was increased back to 16 units twice a day. Her FSGs were 273, 256, 199, 207 and 230. Her po intake has been slightly better. Plan: 1. increase Levemir to 20 units twice a day; 2. adjust Novolog coverage before meals; detail see the inpatient DM order; 3. continue the current Novolog coverage at bedtime; 4. monitor FSGs. will follow. Inpatient Diabetes Orders Before Each Meal: Bolus Insulin: Novolog < 80 mg/dl: no coverage 80-100 mg/dl: 4 units 101-120 mg/dl: 4 units 121-150 mg/dl: 4 units 151-200 mg/dl: 6 units 201-250 mg/dl: 8 units 251-300 mg/dl: 10 units 301-350 mg/dl: 12 units 351-400 mg/dl: 14 units > 400 mg/dl: 16 units Subjective Subjective: She feels better. Objective Last 24 Hrs of Vital Signs/I&O Vital Signs Date Time Temp Pulse Resp B/P B/P Pulse O2 O2 Flow FiO2 Mean Ox Delivery Rate 10/24 0929 96 138/78 10/24 0928 96 138/78 10/24 0900 Nasal 1.5L Cannula 10/24 0632 98 Nasal 1.5L Cannula 10/24 0000 Nasal 1.5L Cannula 10/23 2345 98.2 96 22 138/78 93 Nasal Cannula 10/23 2049 121 136/70 10/23 1709 92 Nasal 1.0L Cannula 10/23 1600 Nasal 1.5L Cannula 10/23 1431 98.2 89 20 102/54 98 Intake & Output 10/24 1600 10/24 0800 10/24 0000 Intake Total 320 570 Output Total Balance 320 570 Intake, IV 20 Intake, Oral 320 550 Number 0 Bowel Movements Findings Pertinent Lab/Ludwig Results: Laboratory Tests 10/24 0654 Chemistry Sodium (137 - 145 mmol/L) 136 L Potassium (3.5 - 5.1 mmol/L) 4.5 Chloride (98 - 107 mmol/L) 90 L Carbon Dioxide (22 - 30 mmol/L) 39 H Anion Gap (5 - 16) 7 BUN (7 - 17 mg/dL) 13 Creatinine (0.5 - 1.0 mg/dL) 0.5 Estimated GFR (>60 ml/min) > 60 BUN/Creatinine Ratio (7 - 25 %) 26.0 H Hematology CBC w Diff NO MAN DIFF REQ WBC (4.8 - 10.8 /CUMM) 10.6 RBC (4.20 - 5.40 /CUMM) 3.82 L Hgb (12.0 - 16.0 G/DL) 10.9 L Hct (37 - 47 %) 34.2 L MCV (81.0 - 99.0 FL) 89.4 MCH (27.0 - 31.0 PG) 28.7 RDW (11.5 - 14.5 %) 15.6 H Plt Count (130 - 400 /CUMM) 238 MPV (7.4 - 10.4 FL) 8.6 Gran % (42.2 - 75.2 %) 79.7 H Lymphocytes % (20.5 - 51.1 %) 11.7 L Monocytes % (1.7 - 9.3 %) 6.5 Eosinophils % (0 - 5 %) 1.9 Basophils % (0.0 - 2.0 %) 0.2 Absolute Granulocytes (1.4 - 6.5 /CUMM) 8.5 H Absolute Lymphocytes (1.2 - 3.4 /CUMM) 1.2 Absolute Monocytes (0.10 - 0.60 /CUMM) 0.7 H Absolute Eosinophils (0.0 - 0.7 /CUMM) 0.2 Absolute Basophils (0.0 - 0.2 /CUMM) 0 PUBS MCHC (33.0 - 37.0 G/DL) 32.0 L
--- NOTE | 2017-10-24 13:17 | PN- Cardiology ---
Subjective Subjective: Sitting up in bed. Complains of some chronic back pain. Reports a cough without much sputum production. Objective Vital Signs and I&Os Vital Signs Date Time Temp Pulse Resp B/P B/P Pulse O2 O2 Flow FiO2 Mean Ox Delivery Rate 10/24 1147 96 Nasal 1.5L Cannula 10/24 0929 96 138/78 10/24 0928 96 138/78 10/24 0900 Nasal 1.5L Cannula 10/24 0632 98 Nasal 1.5L Cannula 10/24 0000 Nasal 1.5L Cannula 10/23 2345 98.2 96 22 138/78 93 Nasal Cannula 10/23 2049 121 136/70 10/23 1709 92 Nasal 1.0L Cannula 10/23 1600 Nasal 1.5L Cannula 10/23 1431 98.2 89 20 102/54 98 Intake & Output 10/24 1600 10/24 0800 10/24 0000 10/23 1600 10/23 0800 10/23 0000 Intake Total 320 570 675 360 480 Output Total Balance 320 570 675 360 480 Intake, IV 20 225 240 Intake, Oral 320 550 450 120 480 Number 0 Bowel Movements Physical Exam: General: no apparent distress. obese Eyes: No obvious scleral icterus. HEENT: No jugular venous distention or abnormal jugular venous pulsations. Cardiovascular: Normal intensity S1/S2. irregular Respiratory: no rales or rhonchi Abdomen: no guarding or rebound tenderness. Skin: Warm Neurologic: No gross focal deficits noted. Current Medications: Current Medications Sig/Samantha Start time Last Medication Dose Route Stop Time Status Admin Albuterol Sulfate 3 ML EVERY 4 HRS/AWAKE 10/20 1600 AC 10/24 INH 1136 Aspirin Buffered 81 MG DAILY 10/19 1000 AC 10/24 PO 0926 Atorvastatin Calcium 80 MG 1700 10/19 1700 AC 10/21 PO 1808 Azithromycin 500 MG DAILY 10/23 1241 DC PO 10/27 1001 Clonazepam 0.5 MG BID PRN 10/19 1000 AC 10/24 PO 10/26 0959 0924 Dabigatran 150 MG BID 10/19 1000 AC 10/24 PO 0940 Duloxetine HCl 30 MG DAILY 10/19 1000 AC 10/24 PO 0926 Fluticasone 1 SPRAY DAILY 10/19 1000 AC 10/24 Propionate CHIDI 0930 Gabapentin 300 MG BID 10/19 1000 AC 10/24 PO 09 Guaifenesin/Codeine 10 ML Q6P PRN 10/20 0630 AC 10/24 Phosphate PO 0923 Hyoscyamine 0.125 MG Q4 HRS NEEDED PRN 10/19 1615 AC 10/23 PO 2048 Insulin Aspart 0 TIDAC/HS 10/20 1200 AC 10/24 SC 1213 Insulin Detemir 20 UNITS BID 10/24 2200 AC SC Insulin Detemir 16 UNITS BID 10/23 2200 DC 10/24 SC 0925 Ipratropium [place] 2.5 ML EVERY 4 HRS/AWAKE 10/22 1200 AC 10/24 INH 1136 Levothyroxine Sodium 0.025 MG DAILY AC 10/19 0743 AC 10/24 PO 0629 Lidocaine 1 PAT DAILY PRN 10/19 1845 AC 10/24 EXT 1216 Loratadine 10 MG DAILY 10/19 1000 AC 10/24 PO 0926 Losartan Potassium 50 MG DAILY 10/23 1000 AC 10/24 PO 0929 Metoprolol Tartrate 100 MG BID 10/19 2200 AC 10/24 PO 0928 Nystatin 1 JEROME TID PRN 10/20 1130 DC 10/23 TOP 2102 Omeprazole 40 MG DAILY AC 10/21 0916 AC 10/24 PO 0629 Ondansetron HCl 4 MG Q8P PRN 10/19 1615 AC 10/21 PO 0835 Oxycodone/ 1 TAB Q8P PRN 10/19 1730 AC 10/24 Acetaminophen PO 0924 Polyethylene Glycol 17 GM DAILY 10/19 1000 AC 10/24 PO 0930 Senna/Docusate Sodium 2 TAB DAILY 10/19 1000 AC 10/24 PO 0927 Simethicone 80 MG Q6P PRN 10/22 1630 AC 10/23 PO 2155 Results Last 48 Hrs of Labs/Mics: Laboratory Tests 10/24/17 0654: Anion Gap 7, Estimated GFR > 60, BUN/Creatinine Ratio 26.0 H, CBC w Diff NO MAN DIFF REQ, RBC 3.82 L, MCV 89.4, MCH 28.7, RDW 15.6 H, MPV 8.6, Gran % 79.7 H, Lymphocytes % 11.7 L, Monocytes % 6.5, Eosinophils % 1.9, Basophils % 0.2, Absolute Granulocytes 8.5 H, Absolute Lymphocytes 1.2, Absolute Monocytes 0.7 H, Absolute Eosinophils 0.2, Absolute Basophils 0, PUBS MCHC 32.0 L 10/23/17 0655: Anion Gap 5, Estimated GFR > 60, BUN/Creatinine Ratio 22.9, CBC w Diff NO MAN DIFF REQ, RBC 3.09 L, MCV 90.3, MCH 29.4, RDW 16.0 H, MPV 8.5, Gran % 79.1 H, Lymphocytes % 12.2 L, Monocytes % 6.3, Eosinophils % 2.1, Basophils % 0.3, Absolute Granulocytes 6.8 H, Absolute Lymphocytes 1.1 L, Absolute Monocytes 0.5, Absolute Eosinophils 0.2, Absolute Basophils 0, PUBS MCHC 32.5 L 10/22/17 1430: Troponin I 0.69 *H Recent Imaging Studies: Telemetry tracings were personally reviewed and show atrial fibrillation with borderline ventricular response rate Assessment/Plan Assessment/Plan 1. Acute hypoxic/hypercapnic respiratory failure 2. Possible congestive heart failure 3. Atrial fibrillation with suboptimal rate control 4. Borderline hypotension 5. Elevated troponin consistent with type II IA -initial troponin 0.18. No acute ECG changes noted. Follow-up troponin 0.29. 6. Mobile echodensity noted in the ascending thoracic aorta. GRZEGORZ or CTA of the chest is recommended Remains hemodynamically stable. Hemoglobin grossly stable on aspirin and Pradaxa. Continue on statin therapy. Heart rate control is suboptimal and would increase the metoprolol to 150 mg by mouth twice a day. Robert Santizo MD [facility] Continue telemetry? Yes
[2017-10-24 15:31] VITALS: BP 122/70
[2017-10-24 22:16] VITALS: BP 128/80
[2017-10-25 07:00] VITALS: BP 120/80
--- NOTE | 2017-10-25 07:38 | PN- Housestaff ---
See Addendum Subjective Follow-up For: acute hypoxic hypercarbic respiratory failure, type II TX Tele-Events Since Last Visit: Afib, 100-130s Subjective: Patient had fever to 100.8 last night, received acetaminophen/oxycodone. She slept well otherwise and has no chest pain, SOB, abd pain, or other complaints. She does mention that she would like to go to a different SNF when she leaves, preferably one in [facility]. Review of Systems Constitutional: Reports: no symptoms. EENTM: Reports: no symptoms. Cardiovascular: Reports: no symptoms. Respiratory: Reports: no symptoms. Gastrointestinal: Reports: no symptoms. Genitourinary: Reports: no symptoms. Musculoskeletal: Reports: no symptoms. Skin: Reports: no symptoms. Neurological/Psychological: Reports: no symptoms. Hematologic/Endocrine: Reports: no symptoms. Immunologic/Allergic: Reports: no symptoms. Objective Last 24 Hrs of Vital Signs/I&O Vital Signs Date Time Temp Pulse Resp B/P B/P Pulse O2 O2 Flow FiO2 Mean Ox Delivery Rate 10/25 0700 98.6 94 20 120/80 93 Room Air 10/25 0000 Nasal 1.5L Cannula 10/24 2216 100.8 135 20 128/80 94 10/24 2051 133 128/80 10/24 1531 98.6 99 20 122/70 95 10/24 1147 96 Nasal 1.5L Cannula 10/24 0929 96 138/78 10/24 0928 96 138/78 10/24 0900 Nasal 1.5L Cannula Intake & Output 10/25 0800 10/25 0000 10/24 1600 Intake Total 240 480 600 Output Total Balance 240 480 600 Intake, Oral 240 480 600 Number 1 Bowel Movements Physical Exam General Appearance: Alert, Oriented X3, Cooperative, No Acute Distress, obese Skin: No Rashes, right IJ portacath HEENT: Atraumatic, PERRLA, EOMI Cardiovascular: irregularly irregular, no JVD Lungs: Clear to Auscultation Abdomen: Normal Bowel Sounds, Soft, diffusely mildly tender Neurological: Normal Speech Extremities: 1+ pitting edema bilaterally, wearing boots Last 24 Hrs of Lab/Ludwig Results Last 24 Hrs of Labs/Mics: Laboratory Tests 10/25/17 0635: Sodium Pending, Potassium Pending, Chloride Pending, Carbon Dioxide Pending, Anion Gap Pending, BUN Pending, Creatinine Pending, BUN/Creatinine Ratio Pending , CBC w Diff Pending, WBC Pending, RBC Pending, Hgb Pending, Hct Pending, MCV Pending, MCH Pending, RDW Pending, Plt Count Pending, MPV Pending, PUBS MCHC Pending Microbiology 10/25 646 LOWER RESP: Respiratory Culture - ORD 10/25 646 LOWER RESP: Gram Stain - ORD Assessment/Plan Assessment: Ms. Caceres is a 72 yo female with a PMH of morbid obesity, A.fib on dabigatran , hypertension, hyperlipidemia, IDDM, PVD, Chronic R foot ulcers, COPD on 2L home oxygen, chronic back pain, urinary incontinence, anxiety, depression, RA, history of MRSA and VRE BIBA to the ED from [facility] here with type II TX secondary to acute hypoxic hypercarbic respiratory failure. Problem List: 1. Acute hypoxic hypercarbic respiratory failure 2. Type II TX, demand ischemia 3. Atrial fibrillation with suboptimal rate control #Acute hypoxic hypercarbic respiratory failure: As per records and [facility], patient was found to have low O2 sats 78-79%. She was put on a NRB mask and her O2 sat increased to 98%. She was unresponsive at the time and foaming at the mouth. In the ED she was found to have a pH of 7.28 and CO2 of 69 and placed on BiPAP. She was initially admitted to the ICU and transferred to tele 1 day later after stabilization of her condition. CTA revealed right lower lobe opacity suspicious for pneumonia. It seems like she has chronic underlying lung disease with COPD and obesity hypoventilation syndrome that may have contributed to a possible aspiration. She was initially treated with IV ampicillin/sulbactam but is now on azithromycin by mouth. However, she did spike a low-grade fever last night to 100.8. No leukocytosis. -Continue oxygen supplementation -Appreciate pulmonology recommendations -Incentive spirometry -Continue by mouth azithromycin 500 mg daily -guaifenesin/codeine -TRC nebs, ipratropium/albuterol -Sputum culture -If fever recurs, consider panculture and switching antibiotics. #Type II TX : She was found to have mild elevations on troponins on admission which was likely due to Type II TX, demand ischemia secondary to respiratory failure. No acute ECG changes were noted. TTE was performed 10/20 which showed normal left ventrricular chamber size and systolic function but was unable to assess wall motion. Mild atheromatous plaque is noted in the ascending thoracic aorta. CTA was performed for further assessment of the mobile mass which showed ascending thoracic aorta is normal in course and caliber without dissection. She subsequently had another episode of chest pain on October 21 and her troponins were found to be further elevated to 1.17. They've trended down to 0.69. She had a sestamibi stress test 12/2014 that revealed distal septal dipyridamole induced ischemia with a LVEF of 42%. -pharmacologic nuclear stress test as an outpatient. -Appreciate cardiology recommendations #Atrial fibrillation with suboptimal rate control: His history of atrial fibrillation is on dabigatran. Her rate has been poorly controlled however, in the 100s-130s. -Records in chart. 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 -Continue dabigatran -metoprolol 150 mg twice a day -Start diltiazem 30mg Q8H #Chronic medical problems: diabetes mellitus, hypertension, GERD, chronic back pain, hyperlipidemia, depression, anxiety, coronary artery disease, hypothyroidism, peripheral neuropathy, constipation, urinary incontinence -Levemir 20U twice a day plus sliding scale -Appreciate endocrinology recommendations. Fingersticks over the past 24 hours have been in the 300s. -[place] inhibitor has been discontinued. Losartan 50 mg daily has been started due to cough. -Continue home simethicone, omeprazole, lidocaine patch, atorvastatin, ondansetron, hyoscyamine, senna, docusate, polyethylene glycol, loratadine, gabapentin, fluticasone, duloxetine, clonazepam, aspirin, levothyroxine DVT prophylaxis with dabigatran Consistent carbohydrate 2 diet DNR/DNI Problem List: 1. Hypercapnic respiratory failure Pain Ratin Pain Location: no pain Pain Goal: Remain pain free Pain Plan: see a/p Tomorrow's Labs & Rationales: cbc
--- NOTE | 2017-10-25 08:04 | PN- Diabetes ---
Assessment/Plan Assessment: 72-year-old woman with a history of diabetes mellitus type 2 was transferred from a care home to [facility] because of hypoxemia and change in mental status. Patient has type 2 diabetes associated with morbid obesity. She states she has had multiple procedures done on her feet due to infection and ulceration. The patient was on Lantus 40 units twice a day when at the care home. We are told that she often refused her insulin. She was also on Humalog 14 units before each meal. In the hospital the patient was on 24 units of Levemir twice a day and sliding- scale NovoLog. Because she was eating poorly her Levemir was cut back and her sliding scale was adjusted. She is currently on 20 units of Levemir twice a day and sliding-scale NovoLog starting with 4 units for 80-150. Her blood sugars yesterday were high. This morning the patient's blood sugar is 221. Plan: Suggest continue the present insulin. Her insulin regimen will probably need further adjustment once we observe her blood sugars today. Subjective Subjective: Feels tired Review of Systems Constitutional: Denies: chills, fever. Cardiovascular: Denies: chest pain. Respiratory: Reports: short of breath. Gastrointestinal: Denies: abdominal pain, nausea. Objective Last 24 Hrs of Vital Signs/I&O Vital Signs Date Time Temp Pulse Resp B/P B/P Pulse O2 O2 Flow FiO2 Mean Ox Delivery Rate 10/25 07 98.6 94 20 120/80 93 Room Air 10/25 0000 Nasal 1.5L Cannula 10/24 2215 100.8 135 20 128/80 94 10/24 2050 133 128/80 10/24 1531 98.6 99 20 122/70 95 10/24 1147 96 Nasal 1.5L Cannula 10/24 0929 96 138/78 10/24 0928 96 138/78 10/24 0900 Nasal 1.5L Cannula Intake & Output 10/25 1600 10/25 0800 10/25 0000 Intake Total 240 480 Output Total Balance 240 480 Intake, Oral 240 480 Number 1 Bowel Movements Vital Signs Date Time Temp Pulse Resp B/P B/P Pulse O2 O2 Flow FiO2 Mean Ox Delivery Rate 10/25 699 98.6 94 20 120/80 93 Room Air 10/25 0000 Nasal 1.5L Cannula 10/24 2215 100.8 135 20 128/80 94 10/24 2050 133 128/80 10/24 1531 98.6 99 20 122/70 95 10/24 1147 96 Nasal 1.5L Cannula 10/24 09 96 138/78 10/24 09 96 138/78 10/24 0900 Nasal 1.5L Cannula Intake & Output 10/25 1600 10/25 0800 10/25 0000 Intake Total 240 480 Output Total Balance 240 480 Intake, Oral 240 480 Number 1 Bowel Movements Physical Exam General Appearance: alert, awake, comfortable Head: normal appearance Neck: normal inspection Respiratory: normal breath sounds Cardiovascular: irregularly irregular Abdomen: normal bowel sounds Current Medications: Current Medications Sig/Samantha Start time Last Medication Dose Route Stop Time Status Admin Albuterol Sulfate 3 ML EVERY 4 HRS/AWAKE 10/20 1600 AC 10/24 INH 204 Aspirin Buffered 81 MG DAILY 10/19 1000 AC 10/24 PO 0926 Atorvastatin Calcium 80 MG 1700 10/19 1700 AC 10/24 PO 1801 Azithromycin 500 MG DAILY 10/25 1000 AC PO 10/29 1001 Clonazepam 0.5 MG BID PRN 10/19 1000 AC 10/24 PO 10/26 0959 2051 Dabigatran 150 MG BID 10/19 1000 AC 10/24 PO 2051 Duloxetine HCl 30 MG DAILY 10/19 1000 AC 10/24 PO 0926 Fluticasone 1 SPRAY DAILY 10/19 1000 AC 10/24 Propionate CHIDI 0930 Gabapentin 300 MG BID 10/19 1000 AC 10/24 PO 2051 Guaifenesin/Codeine 10 ML Q6P PRN 10/20 0630 AC 10/25 Phosphate PO 0647 Hyoscyamine 0.125 MG Q4 HRS NEEDED PRN 10/19 1615 AC 10/25 PO 0630 Insulin Aspart 4 UNITS .STK-MED ONE 10/24 2047 DC SC 10/24 2048 Insulin Aspart 0 TIDAC/HS 10/20 1200 AC 10/25 SC 08 Insulin Detemir 20 UNITS BID 10/24 2200 AC 10/25 SC 0802 Insulin Detemir 16 UNITS BID 10/23 2200 DC 10/24 SC 0925 Ipratropium [place] 2.5 ML EVERY 4 HRS/AWAKE 10/22 1200 AC 10/24 INH 204 Levothyroxine Sodium 0.025 MG DAILY AC 10/19 0743 AC 10/25 PO 0500 Lidocaine 1 PAT ONCE ONE 10/24 1345 DC EXT 10/24 1346 Lidocaine 1 PAT DAILY PRN 10/19 1845 AC 10/24 EXT 1216 Loratadine 10 MG DAILY 10/19 1000 AC 10/24 PO 0926 Losartan Potassium 50 MG DAILY 10/23 1000 AC 10/24 PO 0929 Metoprolol Tartrate 150 MG BID 10/24 2200 AC 10/24 PO 2051 Metoprolol Tartrate 100 MG BID 10/19 2200 DC 10/24 PO 0928 Nystatin 1 JEROME TID PRN 10/20 1130 DC 10/23 TOP 2102 Omeprazole 40 MG DAILY AC 10/21 0916 AC 10/25 PO 0500 Ondansetron HCl 4 MG Q8P PRN 10/19 1615 AC 10/21 PO 0835 Oxycodone/ 1 TAB Q8P PRN 10/19 1730 AC 10/25 Acetaminophen PO 0502 Polyethylene Glycol 17 GM DAILY 10/19 1000 AC 10/24 PO 0930 Senna/Docusate Sodium 2 TAB DAILY 10/19 1000 AC 10/24 PO 0927 Simethicone 80 MG Q6P PRN 10/22 1630 AC 10/25 PO 0501 Findings Pertinent Lab/Ludwig Results: Laboratory Tests 10/25 0635 Chemistry Sodium Pending Potassium Pending Chloride Pending Carbon Dioxide Pending Anion Gap Pending BUN Pending Creatinine Pending BUN/Creatinine Ratio Pending Hematology CBC w Diff Pending WBC Pending RBC Pending Hgb Pending Hct Pending MCV Pending MCH Pending RDW Pending Plt Count Pending MPV Pending PUBS MCHC Pending
[2017-10-25 08:06] LABS: ABSOLUTE BASOPHIL COUNT 0 /CUMM (0.0-0.2); ABSOLUTE EOSINOPHIL COUNT 0.1 /CUMM (0.0-0.7); ABSOLUTE GRANULOCYTE CT 5.6 /CUMM (1.4-6.5); ABSOLUTE LYMPH COUNT 0.8 /CUMM (1.2-3.4); ABSOLUTE MONOCYTE COUNT 0.6 /CUMM (0.10-0.60); BASOPHIL % 0.1 % (0.0-2.0); EOSINOPHIL % 1.7 % (0-5); GRANULOCYTE % 78.7 % (42.2-75.2); MEAN CORPUSCULAR HGB 27.8 PG (27.0-31.0); MEAN CORPUSCULAR HGB CONC 31.3 G/DL (33.0-37.0); MEAN PLATELET VOLUME 8.1 FL (7.4-10.4); PLATELET COUNT 217 /CUMM (130-400); RBC DISTRIBUTION WIDTH 15.7 % (11.5-14.5); RED BLOOD CELL CT 4.05 /CUMM (4.20-5.40); WHITE BLOOD CELL COUNT 7.1 /CUMM (4.8-10.8)
--- NOTE | 2017-10-25 08:53 | PN- Cardiology ---
See Addendum Subjective Subjective: The patient complains of back pain. No chest pain. Shortness of breath is stable. No palpitations. No diaphoresis. No lightheadedness or dizziness. No nausea or vomiting. Objective Vital Signs and I&Os Vital Signs Date Time Temp Pulse Resp B/P B/P Pulse O2 O2 Flow FiO2 Mean Ox Delivery Rate 10/25 07 98.6 94 20 120/80 93 Room Air 10/25 0000 Nasal 1.5L Cannula 10/24 2216 100.8 135 20 128/80 94 10/24 205 133 128/80 10/24 1531 98.6 99 20 122/70 95 10/24 1147 96 Nasal 1.5L Cannula 10/24 09 96 138/78 10/24 0928 96 138/78 10/24 0900 Nasal 1.5L Cannula Intake & Output 10/25 1600 10/25 0800 10/25 0000 10/24 1600 10/24 0800 10/24 0000 Intake Total 240 480 600 320 570 Output Total Balance 240 480 600 320 570 Intake, IV 20 Intake, Oral 240 480 600 320 550 Number 1 0 Bowel Movements Physical Exam: Gen: NAD HEENT: normal Lungs: Scattered rhonchi, normal resp. effort Heart: RRR, S1, S2, no murmurs Abdomen: Soft, nontender, no masses Extremities: No clubbing, cyanosis, or edema. Neuro: Alert and oriented x 3, cranial nerves intact Current Medications: Current Medications Sig/Samantha Start time Last Medication Dose Route Stop Time Status Admin Albuterol Sulfate 3 ML EVERY 4 HRS/AWAKE 10/20 1600 AC 10/24 INH 2046 Aspirin Buffered 81 MG DAILY 10/19 1000 AC 10/24 PO 09 Atorvastatin Calcium 80 MG 1700 10/19 1700 AC 10/24 PO 1801 Azithromycin 500 MG DAILY 10/25 1000 AC PO 10/29 100 Clonazepam 0.5 MG BID PRN 10/19 1000 AC 10/24 PO 10/26 Dabigatran 150 MG BID 10/19 1000 AC 10/24 PO 2050 Duloxetine HCl 30 MG DAILY 10/19 1000 AC 10/24 PO 09 Fluticasone 1 SPRAY DAILY 10/19 1000 AC 10/24 Propionate CHIDI 0930 Gabapentin 300 MG BID 10/19 1000 AC 10/24 PO 2050 Guaifenesin/Codeine 10 ML Q6P PRN 10/20 0630 AC 10/25 Phosphate PO 0647 Hyoscyamine 0.125 MG Q4 HRS NEEDED PRN 10/19 1615 AC 10/25 PO 0630 Insulin Aspart 4 UNITS .STK-MED ONE 10/24 2048 DC AR 10/24 204 Insulin Aspart 0 TIDAC/HS 10/20 1200 AC 10/25 SC 0801 Insulin Detemir 20 UNITS BID 10/24 2200 AC 10/25 SC 0802 Insulin Detemir 16 UNITS BID 10/23 2200 DC 10/24 SC 0925 Ipratropium [place] 2.5 ML EVERY 4 HRS/AWAKE 10/22 1200 AC 10/24 INH 2046 Levothyroxine Sodium 0.025 MG DAILY AC 10/19 0743 AC 10/25 PO 0500 Lidocaine 1 PAT ONCE ONE 10/24 1345 DC EXT 10/24 1346 Lidocaine 1 PAT DAILY PRN 10/19 1845 AC 10/24 EXT 1216 Loratadine 10 MG DAILY 10/19 1000 AC 10/24 PO 0926 Losartan Potassium 50 MG DAILY 10/23 1000 AC 10/24 PO 0929 Metoprolol Tartrate 150 MG BID 10/24 2200 AC 10/24 PO 2051 Metoprolol Tartrate 100 MG BID 10/19 2200 DC 10/24 PO 0928 Nystatin 1 JEROME TID PRN 10/20 1130 DC 10/23 TOP 2102 Omeprazole 40 MG DAILY AC 10/21 0916 AC 10/25 PO 0500 Ondansetron HCl 4 MG Q8P PRN 10/19 1615 AC 10/21 PO 0835 Oxycodone/ 1 TAB Q8P PRN 10/19 1730 AC 10/25 Acetaminophen PO 0502 Polyethylene Glycol 17 GM DAILY 10/19 1000 AC 10/24 PO 0930 Senna/Docusate Sodium 2 TAB DAILY 10/19 1000 AC 10/24 PO 0927 Simethicone 80 MG Q6P PRN 10/22 1630 AC 10/25 PO 0501 Results Last 48 Hrs of Labs/Mics: Laboratory Tests 10/25/17 0635: Sodium Pending, Potassium Pending, Chloride Pending, Carbon Dioxide Pending, Anion Gap Pending, BUN Pending, Creatinine Pending, BUN/Creatinine Ratio Pending , CBC w Diff NO MAN DIFF REQ, RBC 4.05 L, MCV 89.0, MCH 27.8, RDW 15.7 H, MPV 8.1, Gran % 78.7 H, Lymphocytes % 11.6 L, Monocytes % 7.9, Eosinophils % 1.7, Basophils % 0.1, Absolute Granulocytes 5.6, Absolute Lymphocytes 0.8 L, Absolute Monocytes 0.6, Absolute Eosinophils 0.1, Absolute Basophils 0, PUBS MCHC 31.3 L 10/24/17 0654: Anion Gap 7, Estimated GFR > 60, BUN/Creatinine Ratio 26.0 H, CBC w Diff NO MAN DIFF REQ, RBC 3.82 L, MCV 89.4, MCH 28.7, RDW 15.6 H, MPV 8.6, Gran % 79.7 H, Lymphocytes % 11.7 L, Monocytes % 6.5, Eosinophils % 1.9, Basophils % 0.2, Absolute Granulocytes 8.5 H, Absolute Lymphocytes 1.2, Absolute Monocytes 0.7 H, Absolute Eosinophils 0.2, Absolute Basophils 0, PUBS MCHC 32.0 L Recent Imaging Studies: Chest x-ray: Right IJ Port-A-Cath tip again projects over the right atrium. Low lung volumes. Cardiac silhouette is enlarged and unchanged. Increasing right perihilar airspace opacity. Possible trace left pleural effusion. There is no pneumothorax. Osseous structures are stable. CTA chest: Vascular: 1. The ascending thoracic aorta is normal in course and caliber without dissection. 2. The aortic arch is normal in course and caliber without dissection. Normal 3 vessel branching configuration. 3. The descending thoracic aorta is normal in course and caliber without dissection. Mild atherosclerotic calcifications. 4. The visualized upper abdominal aorta is normal in caliber without dissection. Nonocclusive calcification noted at the origins of the celiac axis and superior mesenteric artery. 5. No central or lobar pulmonary embolism. Nonvascular: CHEST: The central airways are patent. There is patchy opacity in the superior segment of the right lower lobe. Additional dependent atelectasis bilaterally. No pneumothorax or pleural effusion. The heart is of normal size. Coronary artery calcifications present. No pericardial effusion. There is no mediastinal, hilar or axillary lymphadenopathy. There are no chest wall masses. Assessment/Plan Assessment/Plan Assessment: 1. Acute hypoxic/hypercapnic respiratory failure 2. Possible congestive heart failure 3. Atrial fibrillation with suboptimal rate control 4. Borderline hypotension 5. Elevated troponin consistent with type II [place] -initial troponin 0.18. No acute ECG changes noted. Follow-up troponin 0.29. 6. Mobile echodensity noted in the ascending thoracic aorta. CTA of the chest revealed nonocclusive calcifications at the origins of the celiac artery and SMA with no dissection or aortic aneurysm Plan: * Continue cardiac medications. * Eventual pharmacologic nuclear stress test, likely as outpatient * No indication for GRZEGORZ at this time given results of CTA of the chest Continue telemetry? No
[2017-10-25] MEDS ORDERED: CARDIZEM30 M1 PO (11:09)
[2017-10-25] MEDS ORDERED: AZITHROMYCIN500 M3 PO (11:09)
[2017-10-25] MEDS ORDERED: LOSARTAN POTASS50 M1 PO (11:09)
[2017-10-25] MEDS ORDERED: METOPROLOL TART50 M1 PO (11:10)
[2017-10-25 14:40] VITALS: BP 112/62
[2017-10-25 22:09] VITALS: BP 132/70
--- NOTE | 2017-10-25 23:47 | Event Note ---
Event Note Event Note: Situation: Patient experienced asymptomatic bradycardia into the 40s. Notified by nursing staff. Brief: Patient's lopressor was recently increased to 150mg BID from 100mg BID last night. This evening patient received lopressor and cardizem around 8:30PM. Prior to medication administration HR was 88. Patient's HR decreased to the 40s which was noted by the nurse. Upon examination patient had no complaints. Assessment/Recs: Patient is currently stable with no chest pain, dizziness, lightheadedness. HR is improving to the 50s. Will do EKG. Will monitor overnight. Consider spacing out lopressor and cardizem. Reevaluate medications in the AM.
--- NOTE | 2017-10-26 07:06 | PN- Housestaff ---
See Addendum Subjective Follow-up For: RESPIRATORY FDAILURE, TYPE 2 RI Tele-Events Since Last Visit: Afib, 40-90 Subjective: She was vicky to 40s last night. Asymptomatic. This AM complaining of chronic pain on left side. Also worreid about getting pain meds at rehab. Review of Systems Constitutional: Reports: no symptoms. EENTM: Reports: no symptoms. Cardiovascular: Reports: no symptoms. Respiratory: Reports: no symptoms. Gastrointestinal: Reports: see HPI. Genitourinary: Reports: no symptoms. Musculoskeletal: Reports: no symptoms. Skin: Reports: no symptoms. Neurological/Psychological: Reports: no symptoms. Hematologic/Endocrine: Reports: no symptoms. Immunologic/Allergic: Reports: no symptoms. Objective Last 24 Hrs of Vital Signs/I&O Vital Signs Date Time Temp Pulse Resp B/P B/P Pulse O2 O2 Flow FiO2 Mean Ox Delivery Rate 10/26 0700 11 120/80 10/26 0000 Nasal 1.5L Cannula 10/25 2209 98.5 88 22 132/70 96 10/25 2113 94 Nasal 1.5L Cannula 10/25 203 88 132/70 10/25 2032 88 132/70 10/25 1727 80 10/25 1600 93 Nasal 1.5L Cannula 10/25 1440 97.2 109 20 112/62 92 10/25 1249 Nasal 1.5L Cannula 10/25 1117 94 120/80 10/25 1108 94 120/80 10/25 0850 95 Nasal 1.5L Cannula 10/25 0800 92 Nasal 1.5L Cannula Intake & Output 10/26 0800 10/26 0000 10/25 1600 Intake Total 120 120 520 Output Total Balance 120 120 520 Intake, Oral 120 120 520 Physical Exam General Appearance: Alert, Oriented X3, Cooperative, No Acute Distress HEENT: Atraumatic Cardiovascular: irregular Lungs: Clear to Auscultation Abdomen: mildly tender on flanks Neurological: Normal Speech Extremities: in boots Current Medications: Current Medications Sig/Samantha Start time Last Medication Dose Route Stop Time Status Admin Albuterol Sulfate 3 ML BID 10/25 2200 AC 10/25 INH 2112 Albuterol Sulfate 3 ML EVERY 4 HRS/AWAKE 10/20 1600 DC 10/25 INH 0850 Aspirin Buffered 81 MG DAILY 10/19 1000 AC 10/25 PO 1115 Atorvastatin Calcium 80 MG 1700 10/19 1700 AC 10/25 PO 1728 Azithromycin 500 MG DAILY 10/25 1000 AC 10/25 PO 10/29 1001 1117 Clonazepam 0.5 MG BID PRN 10/19 1000 AC 10/25 PO 10/26 0959 2029 Dabigatran 150 MG BID 10/19 1000 AC 10/25 PO 2028 Diltiazem HCl 30 MG Q8 10/25 0915 AC 10/26 PO 0700 Duloxetine HCl 30 MG DAILY 10/19 1000 AC 10/25 PO 1109 Fluticasone 1 SPRAY DAILY 10/19 1000 AC 10/25 Propionate CHIDI 1122 Gabapentin 300 MG BID 10/19 1000 AC 10/25 PO 2028 Guaifenesin/Codeine 10 ML Q6P PRN 10/20 0630 AC 10/25 Phosphate PO 1226 Hyoscyamine 0.125 MG Q4 HRS NEEDED PRN 10/19 1615 AC 10/25 PO 1226 Insulin Aspart 0 TIDAC/HS 10/20 1200 AC 10/25 SC 2028 Insulin Detemir 20 UNITS BID 10/24 2200 AC 10/25 SC 202 Ipratropium [place] 2.5 ML BID 10/25 2200 AC 10/25 INH 2111 Ipratropium [place] 2.5 ML EVERY 4 HRS/AWAKE 10/22 1200 DC 10/25 INH 0850 Levothyroxine Sodium 0.025 MG DAILY AC 10/19 0743 AC 10/26 PO 0700 Lidocaine 1 PAT DAILY PRN 10/19 1845 AC 10/25 EXT 1116 Loratadine 10 MG DAILY 10/19 1000 AC 10/25 PO 1108 Losartan Potassium 50 MG DAILY 10/23 1000 AC 10/25 PO 1108 Metoprolol Tartrate 150 MG BID 10/24 2200 AC 10/25 PO 2032 Omeprazole 40 MG DAILY AC 10/21 0916 AC 10/26 PO 0700 Ondansetron HCl 4 MG Q8P PRN 10/19 1615 AC 10/21 PO 0835 Oxycodone/ 1 TAB Q8P PRN 10/19 1730 AC 10/26 Acetaminophen PO 0700 Polyethylene Glycol 17 GM DAILY 10/19 1000 AC 10/24 PO 0930 Senna/Docusate Sodium 2 TAB DAILY 10/19 1000 AC 10/25 PO 1117 Simethicone 80 MG Q6P PRN 10/22 1630 AC 10/25 PO 0501 Last 24 Hrs of Lab/Ludwig Results Last 24 Hrs of Labs/Mics: Laboratory Tests 10/26/17 0657: CBC w Diff Pending, WBC Pending, RBC Pending, Hgb Pending, Hct Pending, MCV Pending, MCH Pending, RDW Pending, Plt Count Pending, MPV Pending, PUBS MCHC Pending Assessment/Plan Assessment: Ms. Caceres is a 72 yo female with a PMH of morbid obesity, A.fib on dabigatran , hypertension, hyperlipidemia, IDDM, PVD, Chronic R foot ulcers, COPD on 2L home oxygen, chronic back pain, urinary incontinence, anxiety, depression, RA, history of MRSA and VRE BIBA to the ED from [facility] here with type II RI secondary to acute hypoxic hypercarbic respiratory failure. Problem List: 1. Acute hypoxic hypercarbic respiratory failure 2. Type II RI, demand ischemia 3. Atrial fibrillation with suboptimal rate control #Acute hypoxic hypercarbic respiratory failure: As per records and [facility], patient was found to have low O2 sats 78-79%. She was put on a NRB mask and her O2 sat increased to 98%. She was unresponsive at the time and foaming at the mouth. In the ED she was found to have a pH of 7.28 and CO2 of 69 and placed on BiPAP. She was initially admitted to the ICU and transferred to tele 1 day later after stabilization of her condition. CTA revealed right lower lobe opacity suspicious for pneumonia. It seems like she has chronic underlying lung disease with COPD and obesity hypoventilation syndrome that may have contributed to a possible aspiration. She was initially treated with IV ampicillin/sulbactam but is now on azithromycin by mouth. No further fevers. -Continue oxygen supplementation -Appreciate pulmonology recommendations -Incentive spirometry -Continue by mouth azithromycin 500 mg daily -guaifenesin/codeine -TRC nebs, ipratropium/albuterol -Sputum culture -If fever recurs, consider panculture and switching antibiotics. #Type II RI : She was found to have mild elevations on troponins on admission which was likely due to Type II RI, demand ischemia secondary to respiratory failure. No acute ECG changes were noted. TTE was performed 10/20 which showed normal left ventrricular chamber size and systolic function but was unable to assess wall motion. Mild atheromatous plaque is noted in the ascending thoracic aorta. CTA was performed for further assessment of the mobile mass which showed ascending thoracic aorta is normal in course and caliber without dissection. She subsequently had another episode of chest pain on October 21 and her troponins were found to be further elevated to 1.17. They've trended down to 0.69. She had a sestamibi stress test 12/2014 that revealed distal septal dipyridamole induced ischemia with a LVEF of 42%. -pharmacologic nuclear stress test as an outpatient. -Appreciate cardiology recommendations #Atrial fibrillation with suboptimal rate control: His history of atrial fibrillation is on dabigatran. Yesterday we added diltiazem for rate control. Last night, she was vicky to 40s, otherwise in the 40-90s. We will talk to cardiology about discharge dose. -Records in chart. Her data management consultant-Dr. Tito Turner (B[facility]). -Continue dabigatran -metoprolol 100 mg twice a day -diltiazem 30mg Q8H #Chronic medical problems: diabetes mellitus, hypertension, GERD, chronic back pain, hyperlipidemia, depression, anxiety, coronary artery disease, hypothyroidism, peripheral neuropathy, constipation, urinary incontinence -Levemir 20U twice a day plus sliding scale -Appreciate endocrinology recommendations. Fingersticks over the past 24 hours have been in the 300s. -J[place] inhibitor has been discontinued. Losartan 50 mg daily has been started due to cough. -Continue home simethicone, omeprazole, lidocaine patch, atorvastatin, ondansetron, hyoscyamine, senna, docusate, polyethylene glycol, loratadine, gabapentin, fluticasone, duloxetine, clonazepam, aspirin, levothyroxine DVT prophylaxis with dabigatran Consistent carbohydrate 2 diet DNR/DNI Problem List: 1. Myocardial infarction type 2 Pain Ratin Pain Location: no pain Pain Goal: Remain pain free Pain Plan: see a/p Tomorrow's Labs & Rationales: none
[2017-10-26 07:12] VITALS: BP 120/80
[2017-10-26 08:04] LABS: ABSOLUTE BASOPHIL COUNT 0 /CUMM (0.0-0.2); ABSOLUTE EOSINOPHIL COUNT 0.2 /CUMM (0.0-0.7); ABSOLUTE GRANULOCYTE CT 7.5 /CUMM (1.4-6.5); ABSOLUTE MONOCYTE COUNT 0.9 /CUMM (0.10-0.60); BASOPHIL % 0.3 % (0.0-2.0); EOSINOPHIL % 2.5 % (0-5); HEMATOCRIT 33.7 % (37-47); MEAN CORPUSCULAR HGB 28.5 PG (27.0-31.0); MEAN CORPUSCULAR VOLUME 88.9 FL (81.0-99.0); MEAN PLATELET VOLUME 8.3 FL (7.4-10.4); PLATELET COUNT 214 /CUMM (130-400); RED BLOOD CELL CT 3.79 /CUMM (4.20-5.40); WHITE BLOOD CELL COUNT 9.6 /CUMM (4.8-10.8)
--- NOTE | 2017-10-26 08:07 | PN- Diabetes ---
Assessment/Plan Assessment: 72-year-old woman with a history of diabetes mellitus type 2 was transferred from a halfway to [facility] because of hypoxemia and change in mental status. Patient has type 2 diabetes associated with morbid obesity. She states she has had multiple procedures done on her feet due to infection and ulceration. The patient was on Lantus 40 units twice a day when at the halfway. We are told that she often refused her insulin. She was also on Humalog 14 units before each meal. In the hospital the patient was on 24 units of Levemir twice a day and sliding- scale NovoLog. Because she was eating poorly her Levemir was cut back and her sliding scale was adjusted. She is currently on 20 units of Levemir twice a day and sliding-scale NovoLog starting with 4 units for 80-150. Her blood sugars yesterday were high. This morning the patient's blood sugar is 204. Yesterday the patient's blood sugar readings were high. She was 252 before breakfast, 352 before lunch, 308 at suppertime and 225 at bedtime. Plan: Suggest continue Levemir 20 units twice a day. We need to increase the patient's sliding scale NovoLog before meals. Sliding scale NovoLog before meals should be 80-150 give 6 units NovoLog, 151-200 give 8 units NovoLog, 201-250 give 10 units NovoLog, 251-300 give 12 units NovoLog, 301 -350 give 14 units NovoLog, 351-400 give 16 units NovoLog. Bedtime sliding-scale NovoLog should stay as written. Subjective Subjective: Feels sleepy Review of Systems Constitutional: Denies: chills, fever. Cardiovascular: Denies: chest pain. Respiratory: Reports: cough. Gastrointestinal: Denies: nausea, vomiting. Objective Last 24 Hrs of Vital Signs/I&O Vital Signs Date Time Temp Pulse Resp B/P B/P Pulse O2 O2 Flow FiO2 Mean Ox Delivery Rate 10/26 0712 98.4 92 20 120/80 96 Nasal 1.5L Cannula 10/26 0700 11 120/80 10/26 0000 Nasal 1.5L Cannula 10/25 2208 98.5 88 22 132/70 96 10/25 2113 94 Nasal 1.5L Cannula 10/25 2031 88 132/70 10/25 2031 88 132/70 10/25 1727 80 10/25 1600 93 Nasal 1.5L Cannula 10/25 1440 97.2 109 20 112/62 92 10/25 1249 Nasal 1.5L Cannula 10/25 1117 94 120/80 10/25 1108 94 120/80 10/25 0850 95 Nasal 1.5L Cannula Intake & Output 10/26 1600 10/26 0800 10/26 0000 Intake Total 120 120 Output Total Balance 120 120 Intake, Oral 120 120 Vital Signs Date Time Temp Pulse Resp B/P B/P Pulse O2 O2 Flow FiO2 Mean Ox Delivery Rate 10/26 07 98.4 92 20 120/80 96 Nasal 1.5L Cannula 10/26 0700 11 120/80 10/26 0000 Nasal 1.5L Cannula 10/25 2209 98.5 88 22 132/70 96 10/25 2113 94 Nasal 1.5L Cannula 10/25 203 88 132/70 10/25 203 88 132/70 10/25 1727 80 10/25 1600 93 Nasal 1.5L Cannula 10/25 1440 97.2 109 20 112/62 92 10/25 1249 Nasal 1.5L Cannula 10/25 1117 94 120/80 10/25 1108 94 120/80 10/25 0850 95 Nasal 1.5L Cannula Intake & Output 10/26 1600 10/26 0800 10/26 0000 Intake Total 120 120 Output Total Balance 120 120 Intake, Oral 120 120 Physical Exam General Appearance: awake, comfortable Head: normal appearance Neck: normal inspection Respiratory: normal breath sounds Cardiovascular: irregularly irregular Abdomen: normal bowel sounds, soft Current Medications: Current Medications Sig/Samantha Start time Last Medication Dose Route Stop Time Status Admin Albuterol Sulfate 3 ML BID 10/25 2199 AC 10/25 INH 2112 Albuterol Sulfate 3 ML EVERY 4 HRS/AWAKE 10/20 1600 DC 10/25 INH 0850 Aspirin Buffered 81 MG DAILY 10/19 1000 AC 10/25 PO 1115 Atorvastatin Calcium 80 MG 1700 10/19 1700 AC 10/25 PO 1728 Azithromycin 500 MG DAILY 10/25 1000 AC 10/25 PO 10/29 1001 1117 Clonazepam 0.5 MG BID PRN 10/19 1000 AC 10/25 PO 10/26 0959 2028 Dabigatran 150 MG BID 10/19 1000 AC 10/25 PO 202 Diltiazem HCl 30 MG Q8 10/25 0915 AC 10/26 PO 0700 Duloxetine HCl 30 MG DAILY 10/19 1000 AC 10/25 PO 1109 Fluticasone 1 SPRAY DAILY 10/19 1000 AC 10/25 Propionate CHIDI 1122 Gabapentin 300 MG BID 10/19 1000 AC 10/25 PO 2028 Guaifenesin/Codeine 10 ML Q6P PRN 10/20 0630 AC 10/25 Phosphate PO 1226 Hyoscyamine 0.125 MG Q4 HRS NEEDED PRN 10/19 1615 AC 10/25 PO 1226 Insulin Aspart 0 TIDAC/HS 10/20 1200 AC 10/25 SC 202 Insulin Detemir 20 UNITS BID 10/24 2200 AC 10/25 SC 202 Ipratropium [place] 2.5 ML BID 10/25 2200 AC 10/25 INH 2111 Ipratropium [place] 2.5 ML EVERY 4 HRS/AWAKE 10/22 1200 DC 10/25 INH 0850 Levothyroxine Sodium 0.025 MG DAILY AC 10/19 0743 AC 10/26 PO 0700 Lidocaine 1 PAT DAILY PRN 10/19 1845 AC 10/25 EXT 1116 Loratadine 10 MG DAILY 10/19 1000 AC 10/25 PO 1108 Losartan Potassium 50 MG DAILY 10/23 1000 AC 10/25 PO 1108 Metoprolol Tartrate 150 MG BID 10/24 2200 AC 10/25 PO 2032 Omeprazole 40 MG DAILY AC 10/21 0916 AC 10/26 PO 0700 Ondansetron HCl 4 MG Q8P PRN 10/19 1615 AC 10/21 PO 0835 Oxycodone/ 1 TAB Q8P PRN 10/19 1730 AC 10/26 Acetaminophen PO 0700 Polyethylene Glycol 17 GM DAILY 10/19 1000 AC 10/24 PO 0930 Senna/Docusate Sodium 2 TAB DAILY 10/19 1000 AC 10/25 PO 1117 Simethicone 80 MG Q6P PRN 10/22 1630 AC 10/25 PO 0501 Findings Pertinent Lab/Ludwig Results: Laboratory Tests 10/26 656 Hematology CBC w Diff Pending WBC Pending RBC Pending Hgb Pending Hct Pending MCV Pending MCH Pending RDW Pending Plt Count Pending MPV Pending PUBS MCHC Pending
[2017-10-26] MEDS ORDERED: CARDIZEM30 M1 PO (11:06)
--- NOTE | 2017-10-26 11:09 | Patient Discharge Instructions ---
Discharge Instructions General Discharge Information You were seen/treated for: Respiratory failure Watch for these problems: Chest pain, shortness breath, fevers Special Instructions: Please follow-up with your primary care doctor in 1 week. Please follow-up with your high pressure boiler operator Dr. Hartman in 1 week. Please take all medications as directed. Diet Continue normal diet: No Recommended Diet: Heart Healthy Activity Full Activity/No Limits: Yes Acute Coronary Syndrome Inclusion Criteria At DC or during hospital stay patient has or had the following: ACS DIAGNOSIS No Discharge Core Measures Meds if any: Prescribed or Continued at Discharge Meds if any: NOT Prescribed or Continued at Discharge Congestive Heart Failure Inclusion Criteria At DC or during hospital stay patient has or had the following: CHF DIAGNOSIS No Discharge Core Measures Meds if any: Prescribed or Continued at Discharge Meds if any: NOT Prescribed or Continued at Discharge Cerebrovascular accident Inclusion Criteria At DC or during hospital stay patient has or had the following: CVA/TIA Diagnosis No Discharge Core Measures Meds if any: Prescribed or Continued at Discharge Meds if any: NOT Prescribed or Continued at Discharge Venous thromboembolism Inclusion Criteria VTE Diagnosis No VTE Type NONE VTE Confirmed by (Test) NONE Discharge Core Measures - Per Current guidelines, there needs to be overlap - treatment for the first 5 days of Warfarin therapy. - If discharged on Warfarin prior to 5 days of - overlap therapy, the patient will need to be - assessed for post discharge needs including - *Post discharge parental anticoagulation - *Warfarin and/or parental anticoagulation education - *Follow up date to check INR post discharge At least 5 days overlap therapy as Inpatient No Meds if any: Prescribed or Continued at Discharge Note: Overlap Therapy is Warfarin and Anticoagulant Meds if any: NOT Prescribed or Continued at Discharge
[2017-10-26 12:45] VITALS: BP 120/74
--- NOTE | 2017-10-26 12:49 | PN- Cardiology ---
Subjective Subjective: Stable Objective Vital Signs and I&Os Vital Signs Date Time Temp Pulse Resp B/P B/P Pulse O2 O2 Flow FiO2 Mean Ox Delivery Rate 10/26 1245 98.4 93 20 120/74 10/26 1051 96 Nasal 1.5L Cannula 10/26 0924 120/74 10/26 0922 93 120/76 10/26 0855 96 Nasal 1.5L Cannula 10/26 0712 98.4 92 20 120/80 96 Nasal 1.5L Cannula 10/26 0700 11 120/80 10/26 0000 Nasal 1.5L Cannula 10/25 2209 98.5 88 22 132/70 96 10/25 2113 94 Nasal 1.5L Cannula 10/25 2032 88 132/70 10/25 2032 88 132/70 10/25 1727 80 10/25 1600 93 Nasal 1.5L Cannula 10/25 1440 97.2 109 20 112/62 92 10/25 1249 Nasal 1.5L Cannula Intake & Output 10/26 1600 10/26 0800 10/26 0000 10/25 1600 10/25 0800 10/25 0000 Intake Total 120 120 520 240 480 Output Total Balance 120 120 520 240 480 Intake, Oral 120 120 520 240 480 Number 1 Bowel Movements Current Medications: Current Medications Sig/Samantha Start time Last Medication Dose Route Stop Time Status Admin Albuterol Sulfate 3 ML BID 10/25 2199 AC 10/26 INH 1048 Aspirin Buffered 81 MG DAILY 10/19 1000 AC 10/26 PO 0921 Atorvastatin Calcium 80 MG 1700 10/19 1700 AC 10/25 PO 1728 Azithromycin 500 MG DAILY 10/25 1000 AC 10/26 PO 10/29 1001 0921 Clonazepam 0.5 MG BID PRN 10/19 1000 DC 10/25 PO 10/26 0959 2029 Dabigatran 150 MG BID 10/19 1000 AC 10/26 PO 0924 Diltiazem HCl 30 MG BID 10/26 2200 AC PO Diltiazem HCl 30 MG Q8 10/25 0915 DC 10/26 PO 0700 Duloxetine HCl 30 MG DAILY 10/19 1000 AC 10/26 PO 0923 Fluticasone 1 SPRAY DAILY 10/19 1000 AC 10/26 Propionate CHIDI 0924 Gabapentin 300 MG BID 10/19 1000 AC 10/26 PO 0922 Guaifenesin/Codeine 10 ML Q6P PRN 10/20 0630 AC 10/25 Phosphate PO 1226 Hyoscyamine 0.125 MG Q4 HRS NEEDED PRN 10/19 1615 AC 10/25 PO 1226 Insulin Aspart 0 TIDAC/HS 10/20 1200 AC 10/26 SC 1231 Insulin Detemir 20 UNITS BID 10/24 2200 AC 10/26 SC 0920 Ipratropium [place] 2.5 ML BID 10/25 2200 AC 10/26 INH 1048 Levothyroxine Sodium 0.025 MG DAILY AC 10/19 0743 AC 10/26 PO 0700 Lidocaine 1 PAT DAILY PRN 10/19 1845 AC 10/25 EXT 1116 Loratadine 10 MG DAILY 10/19 1000 AC 10/26 PO 0924 Losartan Potassium 50 MG DAILY 10/23 1000 AC 10/26 PO 0924 Metoprolol Tartrate 100 MG BID 10/26 2200 AC PO Metoprolol Tartrate 150 MG BID 10/24 2200 DC 10/26 PO 0922 Omeprazole 40 MG DAILY AC 10/21 0916 AC 10/26 PO 0700 Ondansetron HCl 4 MG Q8P PRN 10/19 1615 AC 10/21 PO 0835 Oxycodone/ 1 TAB Q8P PRN 10/19 1730 AC 10/26 Acetaminophen PO 0700 Polyethylene Glycol 17 GM DAILY 10/19 1000 AC 10/24 PO 0930 Senna/Docusate Sodium 2 TAB DAILY 10/19 1000 AC 10/26 PO 0921 Simethicone 80 MG Q6P PRN 10/22 1630 AC 10/25 PO 0501 Results Last 48 Hrs of Labs/Mics: Laboratory Tests 10/26/17 0657: CBC w Diff NO MAN DIFF REQ, RBC 3.79 L, MCV 88.9, MCH 28.5, RDW 16.0 H, MPV 8.3, Gran % 78.0 H, Lymphocytes % 10.0 L, Monocytes % 9.2, Eosinophils % 2.5, Basophils % 0.3, Absolute Granulocytes 7.5 H, Absolute Lymphocytes 1.0 L, Absolute Monocytes 0.9 H, Absolute Eosinophils 0.2, Absolute Basophils 0, PUBS MCHC 32.0 L 10/25/17 0635: Anion Gap 7, Estimated GFR > 60, BUN/Creatinine Ratio 24.0, CBC w Diff NO MAN DIFF REQ, RBC 4.05 L, MCV 89.0, MCH 27.8, RDW 15.7 H, MPV 8.1, Gran % 78.7 H, Lymphocytes % 11.6 L, Monocytes % 7.9, Eosinophils % 1.7, Basophils % 0.1, Absolute Granulocytes 5.6, Absolute Lymphocytes 0.8 L, Absolute Monocytes 0.6, Absolute Eosinophils 0.1, Absolute Basophils 0, PUBS MCHC 31.3 L Assessment/Plan Assessment/Plan Assessment: 1. Acute hypoxic/hypercapnic respiratory failure 2. Possible congestive heart failure 3. Atrial fibrillation with suboptimal rate control 4. Borderline hypotension 5. Elevated troponin consistent with type II MO -initial troponin 0.18. No acute ECG changes noted. Follow-up troponin 0.29. 6. Mobile echodensity noted in the ascending thoracic aorta. CTA of the chest revealed nonocclusive calcifications at the origins of the celiac artery and SMA with no dissection or aortic aneurysm Plan: * Continue cardiac medications. * Eventual pharmacologic nuclear stress test, likely as outpatient * No indication for GRZEGORZ at this time given results of CTA of the chest * In view of the transient episode of bradycardia last evening, the patient will be discharged on metoprolol 100 mg twice a day and Cardizem 30 mg twice a day for rate control. The stenosis can be further adjusted at rehabilitation. * Outpatient follow-up with me in 2-4 weeks.
== END 2017-10-26 14:40 | DRG 177 ==
LOC: ERH 01:38 → ERHI 03:21 → 1NO 03:21 → ENRESERV 06:20 → CRI 07:01 → 1NO 12:29 → ENPENDDIS 10-26 13:01 → 1NO 10-26 14:40
PROVIDERS: Emergency Medicine; Internal Medicine; Student in an Organized Health Care Education/Training Program
DX: J69.0 Pneumonitis due to inhalation of food and vomit (principal); I21.A1 Myocardial infarction type 2; J96.21 Acute and chronic respiratory failure with hypoxia; J96.22 Acute and chronic respiratory failure with hypercapnia; E66.2 Morbid (severe) obesity with alveolar hypoventilation; Z68.42 Body mass index [BMI] 45.0-49.9, adult; R32 Unspecified urinary incontinence; I11.0 Hypertensive heart disease with heart failure; E11.65 Type 2 diabetes mellitus with hyperglycemia; I48.91 Unspecified atrial fibrillation; Z79.4 Long term (current) use of insulin; Z79.01 Long term (current) use of anticoagulants; J44.9 Chronic obstructive pulmonary disease, unspecified; Z99.81 Dependence on supplemental oxygen; H54.8 Legal blindness, as defined in USA; I50.9 Heart failure, unspecified; E78.5 Hyperlipidemia, unspecified; E11.51 Type 2 diabetes mellitus with diabetic peripheral angiopathy without gangrene; E03.9 Hypothyroidism, unspecified; F41.9 Anxiety disorder, unspecified; Z86.14 Personal history of Methicillin resistant Staphylococcus aureus infection; I70.0 Atherosclerosis of aorta; K21.9 Gastro-esophageal reflux disease without esophagitis; M54.5 Low back pain; E11.40 Type 2 diabetes mellitus with diabetic neuropathy, unspecified; Z66 Do not resuscitate; G89.29 Other chronic pain; M06.9 Rheumatoid arthritis, unspecified; I87.2 Venous insufficiency (chronic) (peripheral)
CPT/HCPCS: 1NP; 36415; 80307; 81001; 82436; 87040; 87070; 87086; 87449; 87450; 93005; 93010; 93308; 93321; 96372; 96374; 99291; J0456; J1200; J1650; J1815; J1940; J2405; J2920